=== PATIENT | male | born 1975 | race American Indian/Alaskan Native ===

== ENCOUNTER 2018-03-27 06:23 | Inpatient (IN) | payer BC ==
[~2018-03-27] VITALS: Ht 182.9 cm; Wt 109.0 kg
[2018-03-27] VITALS (8 sets, daily range): BP systolic 132–220; BP diastolic 75–117
[2018-03-27] MEDS ORDERED: normal saline 1000ML IV soln IV ONE (06:50)
[2018-03-27] MEDS ORDERED: haloperidol lactate 5mg/ml inj IM ONE (06:55)
[2018-03-27] MEDS ORDERED: metoclopramide 5 mg/ml inj IV ONE (07:20)
[2018-03-27] MEDS ORDERED: LORazepam 2 mg/ml vial IV ONE (07:20)
[2018-03-27 07:23] LABS: BASOPHILS # (AUTO) 0.1 X10'3 (0-0.2); BASOPHILS % (AUTO) 0.5 % (0-1); EOSINOPHILS # (AUTO) 0.2 X10'3 (0-0.9); HEMATOCRIT 38.6 % (42.0-52.0); LYMPHOCYTES # (AUTO) 1.2 X10'3 (1.1-4.8); LYMPHOCYTES % (AUTO) 6.9 % (21-51); MEAN CORPUSCULAR HEMOGLOBIN 29.8 PG (27.0-31.0); MEAN CORPUSCULAR HGB CONC 33.6 % (33.0-36.5); MEAN CORPUSCULAR VOLUME 88.8 FL (78-98); MEAN PLATELET VOLUME 10.3 FL (7.4-10.4); MONOCYTES # (AUTO) 1.1 X10'3 (0-0.9); MONOCYTES % (AUTO) 5.8 % (2-12); NEUTROPHILS # (AUTO) 15.6 X10'3 (1.8-7.7); NEUTROPHILS % (AUTO) 85.8 % (42-75); PLATELET COUNT 369 X10'3 (140-440); RED BLOOD COUNT 4.34 X10'6 (4.70-6.10); RED CELL DISTRIBUTION WIDTH 13.5 % (11.5-14.5); WHITE BLOOD COUNT 18.2 X10'3 (4.5-11.0)
[2018-03-27 07:37] LABS: INR 0.9 INR; PARTIAL THROMBOPLASTIN TIME 26 SECONDS (22-32); PROTHROMBIN TIME 9.8 SECONDS (9.0-12.0)
[2018-03-27 07:38] LABS: ALANINE AMINOTRANSFERASE 37 U/L (12-78); ALBUMIN 1.9 G/DL (3.4-5.0); ALBUMIN/GLOBULIN RATIO 0.4 (1.1-1.5); ALKALINE PHOSPHATASE 132 IU/L (46-116); ANION GAP 13 (8-16); ASPARTATE AMINO TRANSFERASE 63 U/L (10-37); BILIRUBIN,TOTAL 0.7 MG/DL (0.1-1.0); BLOOD UREA NITROGEN 47 MG/DL (7-18); BUN/CREATININE RATIO 10.2 (5.4-32.0); CALCIUM 8.3 MG/DL (8.5-10.1); CHLORIDE 100 MMOL/L (99-107); GLUCOSE 237 MG/DL (70-104); MAGNESIUM 2.4 MG/DL (1.5-2.4); POTASSIUM 3.3 MMOL/L (3.5-5.1); SODIUM 136 MMOL/L (135-145); TOTAL CARBON DIOXIDE 23.2 MMOL/L (24-32); TOTAL PROTEIN 6.2 G/DL (6.4-8.2); eGFR 14 ML/MIN
[2018-03-27] MEDS ORDERED: hydrALAZINE 20mg/ml inj. IV ONE (07:55)
[2018-03-27] MEDS ORDERED: levoFLOXACIN-Levaquin 750MG/D5 150 ML IV ONE (08:35)
[2018-03-27 08:57] LABS: CLARITY,URINE CLEAR (Clear); COLOR,URINE YELLOW (Yellow); GLUCOSE, URINE >=1000 mg/dl (Neg); KETONES,URINE 15 mg/dl (Neg); LEUKOCYTE ESTERASE ,URINE NEGATIVE (Neg); NITRITES, URINE NEGATIVE (Neg); OCCULT BLOOD,URINE MODERATE (Neg); PH,URINE 7.5 (4.8-8.0); PROTEIN,URINE >=300 mg/dl (Neg); UA COLLECTION TYPE VOIDED; UROBILINOGEN,URINE 0.2 E.U/dL (0.2-1.0)
[2018-03-27] MEDS ORDERED: POTA10CA44 PO (09:15)
[2018-03-27] MEDS ORDERED: LANTUS SQ (09:15)
[2018-03-27] MEDS ORDERED: ATOR40TA PO (09:15)
[2018-03-27] MEDS ORDERED: ATOR20TA66 PO (09:15)
[2018-03-27] MEDS ORDERED: FURO80TA87 PO (09:15)
[2018-03-27] MEDS ORDERED: LOSA50TA3 PO ×2 (09:15→09:20)
[2018-03-27 09:18] LABS: BACTERIA,URINE FEW /HPF (Neg); HYALINE CASTS 0-3 /LPF (NEGATIVE); SQUAMOUS EPITHELIAL CELL,UR FEW /LPF (FEW); WBC,URINE 0-4 /HPF (0-4)
[2018-03-27] MEDS ORDERED: GABA-530 PO (09:20)
[2018-03-27] MEDS ORDERED: METO-292 PO (09:20)
[2018-03-27] MEDS ORDERED: CARV-50 PO (09:20)
[2018-03-27] MEDS ORDERED: CHOL10002 PO (09:20)
[2018-03-27] MEDS ORDERED: DILT120C10 PO (09:20)
[2018-03-27] MEDS ORDERED: HYDR-4069 PO (09:20)
[2018-03-27] MEDS ORDERED: famotidine/PF 10 mg/ml inj IV ONE (09:55)
[2018-03-27] MEDS ORDERED: ondansetron/PF 4mg/2ml inj IV ONE (10:05)
[2018-03-27] MEDS ORDERED: magnesium Cl slow-release 64mg tablet PO PRN (10:10)
[2018-03-27] MEDS ORDERED: dextrose 50%-water 50ml dispensing syringe IV PRN ×2 (10:10)
[2018-03-27] MEDS ORDERED: magnesium hydroxide 30ml (MOM) UD suspension PO PRN (10:10)
[2018-03-27] MEDS ORDERED: dextrose ORAL solution 15 GM/59 ML bottle PO PRN ×2 (10:10)
[2018-03-27] MEDS ORDERED: metoclopramide 5 mg/ml inj IV PRN (10:10)
[2018-03-27] MEDS ORDERED: potassium Cl 20 mEq SR tablet PO PRN ×2 (10:10)
[2018-03-27] MEDS ORDERED: MESSAGE TO PHARMACY PO ONE (10:10)
[2018-03-27] MEDS ORDERED: mag hydrox/Alum hydrox/simeth 30ml oral suspension PO PRN (10:10)
[2018-03-27] MEDS ORDERED: glucagon, human recombinant 1mg kit SUBCUT PRN (10:10)
[2018-03-27] MEDS ORDERED: acetaminophen 325mg tablet PO PRN ×2 (10:10)
[2018-03-27] MEDS ORDERED: magnesium 1gm/100ml D5W IVPB 100 ML IV PRN (10:10)
[2018-03-27] MEDS ORDERED: magnesium 4gm in 100ml NS 100 ML IV PRN (10:10)
[2018-03-27] MEDS ORDERED: potassium Cl 40MEQ/NS 500ml 500 ML IV PRN ×2 (10:10)
[2018-03-27] MEDS ORDERED: morphine 4 MG/ML inj SYRINge IM ONE (10:20)
[2018-03-27] MEDS ORDERED: morphine 4 MG/ML inj SYRINge IV ONE (10:40)
[2018-03-27 10:56] LABS: HEMOGLOBIN A1C 6.8 % (4.5-6.2)
[2018-03-27] MEDS: HYDROmorphone 1 mg/ml syringe IV PRN ×3 (12:00→20:11)
[2018-03-27] MEDS: proCHLORperazine 10 MG/2 ml inj IV PRN ×2 (12:01→19:09)
[2018-03-27] MEDS: normal saline 1000ml 1,000 ML IV SCH ×3 (12:11→23:46)
[2018-03-27] MEDS ORDERED: potassium Cl 20 mEq SR tablet PO ONE (12:45)
[2018-03-27] MEDS ORDERED: furosemide 40mg tablet PO ONE (12:45)
[2018-03-27] MEDS ORDERED: hydrALAZINE 25 MG tablet PO ONE (12:45)
[2018-03-27] MEDS ORDERED: carVEDilol 12.5mg tablet PO ONE (12:45)
[2018-03-27] MEDS ORDERED: atorvastatin 20mg tablet PO ONE (12:45)
[2018-03-27] MEDS ORDERED: diltiazem CD 120mg capsule (once-daily) PO ONE (12:45)
[2018-03-27] MEDS ORDERED: hydrALAZINE 20mg/ml inj. IV PRN (13:30)
[2018-03-27] MEDS: ondansetron/PF 4mg/2ml inj IV PRN ×2 (16:13→23:29)
[2018-03-27] MEDS: gabapentin 100mg capsule PO SCH ×2 (16:19→23:29)
[2018-03-27] MEDS: carVEDilol 12.5mg tablet PO SCH (19:08)
[2018-03-27] MEDS: hydrALAZINE 25 MG tablet PO SCH (19:08)
[2018-03-27] MEDS: furosemide 40mg tablet PO SCH (19:09)
[2018-03-27] MEDS: potassium Cl 20 mEq SR tablet PO SCH (19:09)
[2018-03-27] MEDS: insulin Lispro (HumaLOG) vial - multi-dose SQ SCH (19:22)
[2018-03-27] MEDS: insulin glargine (Lantus) pen - multi-dose SQ SCH (21:11)
[2018-03-28] MEDS: proCHLORperazine 10 MG/2 ml inj IV PRN (02:49)
[2018-03-28] MEDS: HYDROmorphone 1 mg/ml syringe IV PRN ×4 (02:50→20:59)
[2018-03-28] MEDS: normal saline 1000ml 1,000 ML IV SCH (05:27)
[2018-03-28] MEDS: ondansetron/PF 4mg/2ml inj IV PRN (05:27)
[2018-03-28 05:52] LABS: BASOPHILS % (AUTO) 0.2 % (0-1); EOSINOPHILS # (AUTO) 0.3 X10'3 (0-0.9); EOSINOPHILS % (AUTO) 1.8 % (0-6); HEMATOCRIT 33.7 % (42.0-52.0); HEMOGLOBIN 11.2 g/dl (14.0-17.9); LYMPHOCYTES # (AUTO) 1.4 X10'3 (1.1-4.8); LYMPHOCYTES % (AUTO) 9.6 % (21-51); MEAN CORPUSCULAR HEMOGLOBIN 29.8 PG (27.0-31.0); MEAN CORPUSCULAR HGB CONC 33.4 % (33.0-36.5); MEAN CORPUSCULAR VOLUME 89.3 FL (78-98); MEAN PLATELET VOLUME 10.7 FL (7.4-10.4); MONOCYTES # (AUTO) 1.5 X10'3 (0-0.9); MONOCYTES % (AUTO) 10.6 % (2-12); NEUTROPHILS % (AUTO) 77.8 % (42-75); PLATELET COUNT 327 X10'3 (140-440); RED BLOOD COUNT 3.77 X10'6 (4.70-6.10); RED CELL DISTRIBUTION WIDTH 13.4 % (11.5-14.5); WHITE BLOOD COUNT 14.2 X10'3 (4.5-11.0)
[2018-03-28 05:53] LABS: ALBUMIN 1.5 G/DL (3.4-5.0); ANION GAP 10 (8-16); BLOOD UREA NITROGEN 46 MG/DL (7-18); BUN/CREATININE RATIO 10.7 (5.4-32.0); CALCIUM 7.4 MG/DL (8.5-10.1); CHLORIDE 106 MMOL/L (99-107); GLUCOSE 163 MG/DL (70-104); POTASSIUM 3.5 MMOL/L (3.5-5.1); SODIUM 140 MMOL/L (135-145); TOTAL CARBON DIOXIDE 24.4 MMOL/L (24-32); eGFR 15 ML/MIN
[2018-03-28] MEDS: K and/or MAG REPLACEMENT MC SCH (08:00)
[2018-03-28 08:07] VITALS: BP 159/89
[2018-03-28] MEDS: insulin Lispro (HumaLOG) vial - multi-dose SQ SCH ×3 (09:05→18:47)
[2018-03-28] MEDS: carVEDilol 12.5mg tablet PO SCH ×2 (09:07→20:58)
[2018-03-28] MEDS: atorvastatin 20mg tablet PO SCH (09:08)
[2018-03-28] MEDS: hydrALAZINE 25 MG tablet PO SCH ×3 (09:08→21:01)
[2018-03-28] MEDS: furosemide 40mg tablet PO SCH ×2 (09:09→20:58)
[2018-03-28] MEDS: losartan 50mg tablet PO SCH (09:09)
[2018-03-28] MEDS: diltiazem CD 120mg capsule (once-daily) PO SCH (09:10)
[2018-03-28] MEDS: gabapentin 100mg capsule PO SCH ×3 (09:10→23:57)
[2018-03-28] MEDS: potassium Cl 20 mEq SR tablet PO SCH ×2 (09:10→20:58)
[2018-03-28 11:57] VITALS: BP 164/90
[2018-03-28 13:46] VITALS: BP 163/87
[2018-03-28 16:09] VITALS: BP 196/111
[2018-03-28] MEDS: potassium cl 20mEq in 1/2 NS 1,000 ML IV SCH (16:14)
[2018-03-28] MEDS: CefTRIAXone/D5W-Rocephin 1gm 50 ML IV SCH (16:15)
[2018-03-28] MEDS: pantoprazole 40 MG vial IV SCH (16:28)
[2018-03-28] MEDS: erythromycin ethylsuccinate 200mg/5ml 200ml bottle PO SCH (17:58)
[2018-03-28 20:00] VITALS: BP 151/85
[2018-03-28] MEDS: insulin glargine (Lantus) pen - multi-dose SQ SCH (20:55)
[2018-03-28] MEDS: heparin, porcine 5000 units/ml vial SQ SCH (20:58)
[2018-03-29] VITALS: BP 131/67
[2018-03-29] MEDS: HYDROmorphone 1 mg/ml syringe IV PRN ×2 (00:49→08:54)
[2018-03-29] MEDS: potassium cl 20mEq in 1/2 NS 1,000 ML IV SCH ×2 (00:55→11:30)
[2018-03-29] MEDS: proCHLORperazine 10 MG/2 ml inj IV PRN (04:09)
[2018-03-29 05:10] LABS: HEMATOCRIT 32.9 % (42.0-52.0); HEMOGLOBIN 11.2 g/dl (14.0-17.9); WHITE BLOOD COUNT 11.6 X10'3 (4.5-11.0)
[2018-03-29 05:11] LABS: BASOPHILS % (AUTO) 0.2 % (0-1); EOSINOPHILS # (AUTO) 0.1 X10'3 (0-0.9); EOSINOPHILS % (AUTO) 0.7 % (0-6); LYMPHOCYTES # (AUTO) 1.6 X10'3 (1.1-4.8); MEAN CORPUSCULAR HEMOGLOBIN 30.3 PG (27.0-31.0); MEAN CORPUSCULAR VOLUME 88.9 FL (78-98); MEAN PLATELET VOLUME 10.4 FL (7.4-10.4); MONOCYTES # (AUTO) 1.1 X10'3 (0-0.9); MONOCYTES % (AUTO) 9.1 % (2-12); NEUTROPHILS # (AUTO) 8.8 X10'3 (1.8-7.7); PLATELET COUNT 303 X10'3 (140-440); RED CELL DISTRIBUTION WIDTH 13.4 % (11.5-14.5)
[2018-03-29 05:32] LABS: ALBUMIN 1.5 G/DL (3.4-5.0); ANION GAP 11 (8-16); BLOOD UREA NITROGEN 47 MG/DL (7-18); BUN/CREATININE RATIO 10.2 (5.4-32.0); CALCIUM 7.9 MG/DL (8.5-10.1); CHLORIDE 104 MMOL/L (99-107); CREATININE 4.59 MG/DL (0.60-1.10); GLUCOSE 125 MG/DL (70-104); POTASSIUM 3.6 MMOL/L (3.5-5.1); SODIUM 139 MMOL/L (135-145); eGFR 14 ML/MIN
[2018-03-29 07:00] VITALS: BP 172/92
[2018-03-29] MEDS: carVEDilol 12.5mg tablet PO SCH (07:32)
[2018-03-29] MEDS: atorvastatin 20mg tablet PO SCH (07:33)
[2018-03-29] MEDS: pantoprazole 40 MG vial IV SCH (07:33)
[2018-03-29] MEDS: hydrALAZINE 25 MG tablet PO SCH (07:33)
[2018-03-29] MEDS: furosemide 40mg tablet PO SCH (07:33)
[2018-03-29] MEDS: potassium Cl 20 mEq SR tablet PO SCH (07:33)
[2018-03-29] MEDS: losartan 50mg tablet PO SCH (07:33)
[2018-03-29] MEDS: diltiazem CD 120mg capsule (once-daily) PO SCH (07:33)
[2018-03-29] MEDS: heparin, porcine 5000 units/ml vial SQ SCH (07:35)
[2018-03-29] MEDS: CefTRIAXone/D5W-Rocephin 1gm 50 ML IV SCH (07:35)
[2018-03-29] MEDS: erythromycin ethylsuccinate 200mg/5ml 200ml bottle PO SCH (07:51)
[2018-03-29] MEDS: gabapentin 100mg capsule PO SCH (08:00)
[2018-03-29] MEDS: K and/or MAG REPLACEMENT MC SCH (08:00)
[2018-03-29] MEDS: insulin Lispro (HumaLOG) vial - multi-dose SQ SCH (08:57)
[2018-03-29 09:33] VITALS: BP 120/64
[2018-03-29 10:58] VITALS: BP 128/76
[2018-03-29] MEDS ORDERED: AMOX-580 PO (12:59)
[2018-03-29] MEDS ORDERED: [UNRECOGNIZED DRUG - CODE] PO ×2 (12:59→13:13)
[2018-03-29] MEDS ORDERED: PANT-47 PO (12:59)
[2018-03-29] MEDS ORDERED: INSU100V11 SQ (13:00)
== END 2018-03-29 14:12 | disposition home or self-care (01) | DRG 73 ==
LOC: ER 06:25 → ED HOLD 10:09 → SUR 3N 12:03
PROVIDERS: ADMIT Family Medicine; ATTEND Internal Medicine
DX: E10.43 Type 1 diabetes mellitus with diabetic autonomic (poly)neuropathy (principal); J18.1 Lobar pneumonia, unspecified organism; N17.9 Acute kidney failure, unspecified; N18.4 Chronic kidney disease, stage 4 (severe); E10.21 Type 1 diabetes mellitus with diabetic nephropathy; E10.22 Type 1 diabetes mellitus with diabetic chronic kidney disease; E10.319 Type 1 diabetes mellitus with unspecified diabetic retinopathy without macular edema; E10.65 Type 1 diabetes mellitus with hyperglycemia; E78.5 Hyperlipidemia, unspecified; E86.0 Dehydration; E87.6 Hypokalemia; F17.210 Nicotine dependence, cigarettes, uncomplicated; I12.9 Hypertensive chronic kidney disease with stage 1 through stage 4 chronic kidney disease, or unspecified chronic kidney disease; I16.0 Hypertensive urgency; K31.84 Gastroparesis; Z79.4 Long term (current) use of insulin; Z88.2 Allergy status to sulfonamides; Z90.49 Acquired absence of other specified parts of digestive tract; Z88.1 Allergy status to other antibiotic agents; Z79.899 Other long term (current) drug therapy
CPT/HCPCS: 36415; 71045; 74176; 80048; 80053; 81001; 82570; 82948; 83036; 83605; 83735; 83935; 84145; 84300; 85025; 85610; 85730; 87040; 87070; 93005; 96361; 96365; 96375; 99285; C9113; J0360; J0696; J0780; J1170; J1644; J1815; J1956; J2060; J2270; J2405; J2765; J3480; J3490; J7030

== ENCOUNTER 2018-07-18 03:17 | Inpatient (IN) | payer BC | END 2018-07-19 17:37 | disposition home or self-care (01) | LOC: ER 03:17 → ED HOLD 05:57 → PCU 3S 08:00 ==

== ENCOUNTER 2018-08-27 03:48 | Emergency (ER) | payer BC ==
[~2018-08-27] VITALS: Ht 172.7 cm; Wt 100.8 kg
[~2018-08-27 03:48] MED LIST: ATOR20TA66 PO; CARCD120C PO; CARV-50 PO; GABA-530 PO; HYDR-4069 PO; INSU100V11 SQ; LANTUS SQ; LOSA50TA3 PO; METO-292 PO; ONDA4TAB6 PO
[2018-08-27] MEDS ORDERED: famotidine/PF 10 mg/ml inj IV ONE (04:30)
[2018-08-27] MEDS ORDERED: pantoprazole 40 MG vial IV ONE (04:30)
[2018-08-27] MEDS ORDERED: normal saline 1000ML IV soln IVB ONE (04:30)
[2018-08-27] MEDS ORDERED: metoclopramide 5 mg/ml inj IV ONE (04:30)
[2018-08-27 04:41] LABS: ABG BASE EXCESS -2.2 mmol/L (-2.0-3.0); ABG OXYGEN SATURATION 97.8 % (95-98); ABG PCO2 (T) 11.2 mmHg (35.0-48.0); ABG PH (T) 7.713 (7.350-7.450); ABG PO2 (T) 119.7 mmHg (83-108); FCOHb 0.1 % (0.5-1.5); FMetHb 0.3 % (0.3-1.12); FO2Hb 97.4 % (94-100); PATIENT TEMPERATURE 37.1; TOTAL HEMOGLOBIN 12.7 G/dl (14.0-18.0)
[2018-08-27] MEDS ORDERED: LORazepam 2 mg/ml vial IV ONE (04:45)
[2018-08-27 04:50] LABS: BASOPHILS # (AUTO) 0.1 X10'3 (0-0.2); BASOPHILS % (AUTO) 0.2 % (0-1); EOSINOPHILS % (AUTO) 0 % (0-6); HEMATOCRIT 24.2 % (42.0-52.0); LYMPHOCYTES # (AUTO) 1.5 X10'3 (1.1-4.8); LYMPHOCYTES % (AUTO) 5.7 % (21-51); MEAN CORPUSCULAR HEMOGLOBIN 28.9 PG (27.0-31.0); MEAN CORPUSCULAR HGB CONC 33.1 g/dL (33.0-36.5); MEAN CORPUSCULAR VOLUME 87.1 FL (78-98); MEAN PLATELET VOLUME 10.8 FL (7.4-10.4); MONOCYTES # (AUTO) 0.6 X10'3 (0-0.9); MONOCYTES % (AUTO) 2.4 % (2-12); NEUTROPHILS # (AUTO) 23.5 X10'3 (1.8-7.7); NEUTROPHILS % (AUTO) 91.7 % (42-75); PLATELET COUNT 515 X10'3 (140-440); RED BLOOD COUNT 2.78 X10'6 (4.70-6.10); RED CELL DISTRIBUTION WIDTH 13.5 % (11.5-14.5)
[2018-08-27 04:54] LABS: WHITE BLOOD COUNT 25.6 X10'3 (4.5-11.0)
[2018-08-27 04:59] LABS: ALANINE AMINOTRANSFERASE 29 U/L (12-78); ALBUMIN/GLOBULIN RATIO 0.5 (1.1-1.5); ALKALINE PHOSPHATASE 152 IU/L (46-116); ANION GAP 19 (8-16); ASPARTATE AMINO TRANSFERASE 32 U/L (10-37); BILIRUBIN,TOTAL 0.9 MG/DL (0.1-1.0); BLOOD UREA NITROGEN 52 MG/DL (7-18); BUN/CREATININE RATIO 8.5 (5.4-32.0); CALCIUM 8.5 MG/DL (8.5-10.1); CHLORIDE 102 MMOL/L (99-107); CREATININE 6.15 MG/DL (0.60-1.10); GLUCOSE 244 MG/DL (70-104); LIPASE 244 U/L (73-393); POTASSIUM 3.2 MMOL/L (3.5-5.1); SODIUM 138 MMOL/L (135-145); TOTAL CARBON DIOXIDE 17.4 MMOL/L (24-32); TOTAL PROTEIN 6.2 G/DL (6.4-8.2); eGFR 10 ML/MIN
[2018-08-27 05:22] LABS: TOTAL CELLS COUNTED 100
[2018-08-27 05:23] LABS: LARGE PLATELETS FEW; PLATELET ESTIMATE INCREASED
--- NOTE | 2018-08-27 05:23 | NUR ---
pt respiratory rate normalized to 18. MD aware, stated pt did not need non-rebreather as long as respirations stay within normal limits.
[2018-08-27] MEDS ORDERED: insulin regular, DKA only 100 UNIT in normal saline 100ml IV soln 99 ML IV SCH ×2 (05:28)
[2018-08-27] MEDS ORDERED: insulin regular, human vial - multi-dose IV PRN (05:30)
[2018-08-27 06:16] VITALS: BP 156/119
--- NOTE | 2018-08-27 06:22 | NUR ---
turn non-rebreather to 15L, pt found on 2 L non-rebreather
[2018-08-27 06:37] LABS: MAGNESIUM 1.7 MG/DL (1.5-2.4); PHOSPHORUS 3.4 MG/DL (2.3-4.5)
--- NOTE | 2018-08-27 06:51 | NUR ---
INSULIN DRIP ON HOLD PER
[2018-08-28] MEDS ORDERED: ONDA4TAB6 PO (03:39)
[2018-08-28] MEDS ORDERED: PHE25R PR (03:39)
== END 2018-08-27 07:03 | disposition home or self-care (01) ==
LOC: ER 03:48
DX: E11.10 Type 2 diabetes mellitus with ketoacidosis without coma (principal); E11.22 Type 2 diabetes mellitus with diabetic chronic kidney disease; I12.0 Hypertensive chronic kidney disease with stage 5 chronic kidney disease or end stage renal disease; N18.6 End stage renal disease; K29.00 Acute gastritis without bleeding; E87.4 Mixed disorder of acid-base balance; E87.2 Acidosis; D72.829 Elevated white blood cell count, unspecified; Z88.2 Allergy status to sulfonamides; Z79.4 Long term (current) use of insulin; Z79.899 Other long term (current) drug therapy
CPT/HCPCS: 36415; 36600; 80053; 82803; 83605; 83690; 83735; 84100; 84145; 85018; 85025; 87040; 96374; 96375; 99291; C9113; J1815; J2060; J2765; J3490; J7030

== ENCOUNTER 2018-08-27 23:42 | Emergency (ER) | payer BC ==
[~2018-08-27] VITALS: Ht 182.9 cm; Wt 125.0 kg
[2018-08-28] MEDS ORDERED: metoclopramide 5 mg/ml inj IV ONE (00:05)
[2018-08-28] MEDS ORDERED: normal saline 1000ML IV soln IVB ONE (00:05)
[2018-08-28 00:51] LABS: ABG BASE EXCESS -6.4 mmol/L (-2.0-3.0); ABG HCO3 14.9 mmol/L (22.0-26.0); ABG OXYGEN SATURATION 97.1 % (95-98); ABG PCO2 (T) 19.7 mmHg (35.0-48.0); ABG PH (T) 7.496 (7.350-7.450); ABG PO2 (T) 100.6 mmHg (83-108); ALLEN'S TEST Positive; FCOHb 0.3 % (0.5-1.5); FMetHb 0.3 % (0.3-1.12); FO2Hb 96.5 % (94-100); PATIENT TEMPERATURE 36.7; TOTAL HEMOGLOBIN 11.5 G/dl (14.0-18.0)
[2018-08-28 01:24] LABS: BASOPHILS # (AUTO) 0.1 X10'3 (0-0.2); BASOPHILS % (AUTO) 0.4 % (0-1); EOSINOPHILS % (AUTO) 0 % (0-6); HEMATOCRIT 34.1 % (42.0-52.0); HEMOGLOBIN 11.2 g/dl (14.0-17.9); LYMPHOCYTES # (AUTO) 1.2 X10'3 (1.1-4.8); LYMPHOCYTES % (AUTO) 8.8 % (21-51); MONOCYTES # (AUTO) 0.9 X10'3 (0-0.9); MONOCYTES % (AUTO) 6.6 % (2-12); NEUTROPHILS # (AUTO) 11.7 X10'3 (1.8-7.7); NEUTROPHILS % (AUTO) 84.2 % (42-75); PLATELET COUNT 328 X10'3 (140-440); RED BLOOD COUNT 3.87 X10'6 (4.70-6.10); RED CELL DISTRIBUTION WIDTH 13.2 % (11.5-14.5); WHITE BLOOD COUNT 13.9 X10'3 (4.5-11.0)
[2018-08-28 01:44] LABS: ALANINE AMINOTRANSFERASE 27 U/L (12-78); ALBUMIN 1.7 G/DL (3.4-5.0); ALBUMIN/GLOBULIN RATIO 0.5 (1.1-1.5); ALKALINE PHOSPHATASE 126 IU/L (46-116); ANION GAP 17 (8-16); ASPARTATE AMINO TRANSFERASE 40 U/L (10-37); BILIRUBIN,TOTAL 1.1 MG/DL (0.1-1.0); BLOOD UREA NITROGEN 49 MG/DL (7-18); BUN/CREATININE RATIO 8.5 (5.4-32.0); CALCIUM 7.9 MG/DL (8.5-10.1); CHLORIDE 104 MMOL/L (99-107); CREATININE 5.77 MG/DL (0.60-1.10); GLUCOSE 173 MG/DL (70-104); LIPASE 139 U/L (73-393); SODIUM 139 MMOL/L (135-145); TOTAL CARBON DIOXIDE 18.5 MMOL/L (24-32); TOTAL PROTEIN 5.4 G/DL (6.4-8.2); eGFR 11 ML/MIN
[2018-08-28 01:46] LABS: POTASSIUM 2.8 MMOL/L (3.5-5.1)
--- NOTE | 2018-08-28 01:50 | NUR ---
Discussed pt's c/o pain with Dr Khalil; new order received for zofran and toradol. Also K-rider order d/t K 2.8
[2018-08-28] MEDS ORDERED: ondansetron/PF 4mg/2ml inj IV ONE (01:55)
[2018-08-28] MEDS ORDERED: ketorolac trometh inj. 60 MG/2 ML VIAL IM ONE (01:55)
[2018-08-28] MEDS ORDERED: potassium Cl 10 mEq/100mL bag IV ONE (01:55)
[2018-08-28] MEDS ORDERED: potassium 10mEq/100ml NS w/LIDOcaine (10mg/bag) IV ONE (02:00)
[2018-08-28] MEDS ORDERED: magnesium 2GM in 50ml NS 50 ML IV SCH (02:10)
[2018-08-28] MEDS ORDERED: potassium Cl 20 mEq SR tablet PO ONE (02:10)
[2018-08-28 03:02] VITALS: BP 184/109
--- NOTE | 2018-08-28 03:34 | NUR ---
Dr Khalil ordered Magnesium 2gm total; ordered option was 2gm per bag w/ one bag being administered and second bag not needed as total desired dose given.
[2018-08-28] MEDS ORDERED: PHE25R PR (03:39)
[2018-08-28] MEDS ORDERED: ONDA4TAB6 PO (03:39)
== END 2018-08-28 03:58 | disposition home or self-care (01) ==
LOC: ER 23:43
DX: E10.43 Type 1 diabetes mellitus with diabetic autonomic (poly)neuropathy (principal); K31.84 Gastroparesis; E10.65 Type 1 diabetes mellitus with hyperglycemia; I12.0 Hypertensive chronic kidney disease with stage 5 chronic kidney disease or end stage renal disease; E10.22 Type 1 diabetes mellitus with diabetic chronic kidney disease; N18.6 End stage renal disease; Z88.2 Allergy status to sulfonamides
CPT/HCPCS: 36415; 36600; 80053; 82803; 83605; 83690; 85018; 85025; 96361; 96365; 96372; 96375; 99283; J1885; J2405; J2765; J3475; J3480; J7030

== ENCOUNTER 2018-10-07 21:34 | Emergency (ER) | payer BC ==
[~2018-10-07] VITALS: Ht 185.4 cm; Wt 122.7 kg
[~2018-10-07 21:34] MED LIST changes: +PHE25R PR
[2018-10-07] MEDS ORDERED: morphine 4 MG/ML inj SYRINge IV PRN (21:40)
[2018-10-07] MEDS ORDERED: normal saline 1000ML IV soln IVB ONE (21:40)
[2018-10-07] MEDS ORDERED: metoclopramide 5 mg/ml inj IV ONE (21:40)
[2018-10-07 22:09] LABS: ALANINE AMINOTRANSFERASE 24 U/L (12-78); ALBUMIN 2.2 G/DL (3.4-5.0); ALBUMIN/GLOBULIN RATIO 0.5 (1.1-1.5); ALKALINE PHOSPHATASE 129 IU/L (46-116); ANION GAP 20 (8-16); ASPARTATE AMINO TRANSFERASE 27 U/L (10-37); BASOPHILS % (AUTO) 0.3 % (0-1); BILIRUBIN,TOTAL 0.8 MG/DL (0.1-1.0); BLOOD UREA NITROGEN 78 MG/DL (7-18); BUN/CREATININE RATIO 8.7 (5.4-32.0); CALCIUM 8.2 MG/DL (8.5-10.1); CHLORIDE 97 MMOL/L (99-107); CREATININE 8.96 MG/DL (0.60-1.10); EOSINOPHILS % (AUTO) 0 % (0-6); GLUCOSE 222 MG/DL (70-104); HEMATOCRIT 35.2 % (42.0-52.0); HEMOGLOBIN 11.5 g/dl (14.0-17.9); LIPASE 123 U/L (73-393); LYMPHOCYTES # (AUTO) 1.4 X10'3 (1.1-4.8); LYMPHOCYTES % (AUTO) 13.1 % (21-51); MAGNESIUM 1.8 MG/DL (1.5-2.4); MEAN CORPUSCULAR HEMOGLOBIN 28.9 PG (27.0-31.0); MEAN CORPUSCULAR HGB CONC 32.7 g/dL (33.0-36.5); MEAN CORPUSCULAR VOLUME 88.3 FL (78-98); MEAN PLATELET VOLUME 10.4 FL (7.4-10.4); MONOCYTES % (AUTO) 9.2 % (2-12); NEUTROPHILS # (AUTO) 8.4 X10'3 (1.8-7.7); NEUTROPHILS % (AUTO) 77.4 % (42-75); PLATELET COUNT 369 X10'3 (140-440); RED BLOOD COUNT 3.99 X10'6 (4.70-6.10); SODIUM 138 MMOL/L (135-145); TOTAL CARBON DIOXIDE 21.2 MMOL/L (24-32); TOTAL PROTEIN 6.6 G/DL (6.4-8.2); WHITE BLOOD COUNT 10.8 X10'3 (4.5-11.0); eGFR 7 ML/MIN
[2018-10-07] MEDS ORDERED: ondansetron/PF 4mg/2ml inj IV ONE (22:45)
[2018-10-07 23:01] LABS: ABG BASE EXCESS -2.7 mmol/L (-2.0-3.0); ABG HCO3 19.3 mmol/L (22.0-26.0); ABG OXYGEN SATURATION 93.4 % (95-98); ABG PCO2 (T) 25.2 mmHg (35.0-48.0); ABG PH (T) 7.501 (7.350-7.450); ABG PO2 (T) 68.2 mmHg (83-108); FCOHb 0.2 % (0.5-1.5); FMetHb 0.3 % (0.3-1.12); FO2Hb 92.9 % (94-100); PATIENT TEMPERATURE 36.6; TOTAL HEMOGLOBIN 11.2 G/dl (14.0-18.0)
[2018-10-07] MEDS ORDERED: PROM25SU46 RC (23:10)
[2018-10-07 23:37] VITALS: BP 215/137
[2018-10-07 23:39] LABS: CLARITY,URINE CLEAR (Clear); COLOR,URINE YELLOW (Yellow); GLUCOSE, URINE 500 mg/dl (Neg); KETONES,URINE 40 mg/dl (Neg); LEUKOCYTE ESTERASE ,URINE NEGATIVE (Neg); NITRITES, URINE NEGATIVE (Neg); OCCULT BLOOD,URINE MODERATE (Neg); PH,URINE 7.5 (4.8-8.0); PROTEIN,URINE >=300 mg/dl (Neg); UROBILINOGEN,URINE 0.2 E.U/dL (0.2-1.0)
--- NOTE | 2018-10-07 23:40 | NUR ---
MD AWARE OF PT'S POTASSIUM LEVEL AND BLOOD PRESSURE AND AFTER TALKING TO NEPHROLOGY CLEARED PT TO BE DC'D FROM ED.
[2018-10-07 23:45] LABS: BACTERIA,URINE NONE SEEN /HPF (Neg); SQUAMOUS EPITHELIAL CELL,UR FEW /LPF (FEW); UA COLLECTION TYPE NON-SPECIFIED; WBC,URINE NONE SEEN /HPF (0-4)
== END 2018-10-07 23:39 | disposition home or self-care (01) ==
LOC: ER 21:34
DX: E11.43 Type 2 diabetes mellitus with diabetic autonomic (poly)neuropathy (principal); K31.84 Gastroparesis; I12.9 Hypertensive chronic kidney disease with stage 1 through stage 4 chronic kidney disease, or unspecified chronic kidney disease; E11.22 Type 2 diabetes mellitus with diabetic chronic kidney disease; N18.9 Chronic kidney disease, unspecified; Z88.2 Allergy status to sulfonamides; Z79.4 Long term (current) use of insulin; Z79.899 Other long term (current) drug therapy
CPT/HCPCS: 36415; 36600; 80053; 81001; 82803; 83690; 83735; 84100; 85018; 85025; 96361; 96374; 96375; 99284; J2270; J2405; J2765; J7030

== ENCOUNTER 2018-10-09 20:32 | Inpatient (IN) | payer BC ==
[~2018-10-09] VITALS: Ht 182.9 cm; Wt 114.3 kg
[~2018-10-09 20:32] MED LIST changes: +PROM25SU46 RC
[2018-10-09 21:40] LABS: BASOPHILS % (AUTO) 0.2 % (0-1); EOSINOPHILS % (AUTO) 0.1 % (0-6); HEMATOCRIT 34.1 % (42.0-52.0); HEMOGLOBIN 11.2 g/dl (14.0-17.9); LYMPHOCYTES % (AUTO) 14.1 % (21-51); MEAN CORPUSCULAR HEMOGLOBIN 28.8 PG (27.0-31.0); MEAN CORPUSCULAR VOLUME 87.3 FL (78-98); MEAN PLATELET VOLUME 10.4 FL (7.4-10.4); MONOCYTES # (AUTO) 0.9 X10'3 (0-0.9); MONOCYTES % (AUTO) 6.7 % (2-12); NEUTROPHILS # (AUTO) 11.1 X10'3 (1.8-7.7); NEUTROPHILS % (AUTO) 78.9 % (42-75); PLATELET COUNT 438 X10'3 (140-440); RED BLOOD COUNT 3.91 X10'6 (4.70-6.10); RED CELL DISTRIBUTION WIDTH 13.1 % (11.5-14.5); WHITE BLOOD COUNT 14.1 X10'3 (4.5-11.0)
[2018-10-09 21:51] LABS: ALANINE AMINOTRANSFERASE 20 U/L (12-78); ALBUMIN 2.2 G/DL (3.4-5.0); ALBUMIN/GLOBULIN RATIO 0.5 (1.1-1.5); ALKALINE PHOSPHATASE 138 IU/L (46-116); AMYLASE 54 U/L (25-115); ANION GAP 22 (8-16); ASPARTATE AMINO TRANSFERASE 22 U/L (10-37); BLOOD UREA NITROGEN 79 MG/DL (7-18); BUN/CREATININE RATIO 8.9 (5.4-32.0); CALCIUM 8.5 MG/DL (8.5-10.1); CHLORIDE 97 MMOL/L (99-107); CREATININE 8.89 MG/DL (0.60-1.10); GLUCOSE 177 MG/DL (70-104); LIPASE 155 U/L (73-393); SODIUM 141 MMOL/L (135-145); TOTAL CARBON DIOXIDE 22.2 MMOL/L (24-32); eGFR 7 ML/MIN
[2018-10-09 21:57] LABS: INR 1.1 INR; POTASSIUM 2.7 MMOL/L (3.5-5.1); PROTHROMBIN TIME 10.7 SECONDS (9.0-12.0)
[2018-10-10] MEDS ORDERED: morphine 4 MG/ML inj SYRINge IV ONE (00:45)
[2018-10-10] MEDS ORDERED: ondansetron/PF 4mg/2ml inj IV ONE (00:45)
[2018-10-10] MEDS ORDERED: glucagon, human recombinant 1mg kit SUBCUT PRN (02:00)
[2018-10-10] MEDS ORDERED: proMETHazine 25mg rectal suppository RC PRN (02:00)
[2018-10-10] MEDS ORDERED: MESSAGE TO PHARMACY PO ONE (02:00)
[2018-10-10] MEDS ORDERED: insulin Lispro (HumaLOG) vial - multi-dose SQ SCH ×2 (02:00→21:00)
[2018-10-10] MEDS ORDERED: diphenhydrAMINE 50 mg/ml inj IV SCH ×2 (02:00→08:00)
[2018-10-10] MEDS ORDERED: dextrose ORAL solution 15 GM/59 ML bottle PO PRN ×2 (02:00)
[2018-10-10] MEDS ORDERED: metoclopramide 5 mg/ml inj IV SCH (02:00)
[2018-10-10] MEDS ORDERED: acetaminophen 650mg rectal suppository RC PRN (02:00)
[2018-10-10] MEDS ORDERED: dextrose 50%-water 50ml dispensing syringe IV PRN ×2 (02:00)
[2018-10-10] MEDS ORDERED: acetaminophen 325mg tablet PO PRN ×2 (02:00)
[2018-10-10] MEDS ORDERED: potass W/LIDOcaine 10mEq/100ml 100 ML IV ONE ×2 (02:15→03:55)
[2018-10-10] MEDS: normal saline 1000ml 1,000 ML IV SCH ×2 (02:55→15:18)
[2018-10-10] MEDS ORDERED: hydrALAZINE 20mg/ml inj. IV PRN (03:05)
[2018-10-10 03:36] LABS: BASOPHILS % (AUTO) 0.2 % (0-1); EOSINOPHILS % (AUTO) 0 % (0-6); HEMOGLOBIN 11.1 g/dl (14.0-17.9); LYMPHOCYTES # (AUTO) 1.8 X10'3 (1.1-4.8); LYMPHOCYTES % (AUTO) 10.9 % (21-51); MEAN CORPUSCULAR HEMOGLOBIN 29.1 PG (27.0-31.0); MEAN CORPUSCULAR HGB CONC 32.7 g/dL (33.0-36.5); MEAN CORPUSCULAR VOLUME 88.9 FL (78-98); MEAN PLATELET VOLUME 10.5 FL (7.4-10.4); MONOCYTES # (AUTO) 1.1 X10'3 (0-0.9); MONOCYTES % (AUTO) 6.6 % (2-12); NEUTROPHILS # (AUTO) 13.6 X10'3 (1.8-7.7); NEUTROPHILS % (AUTO) 82.3 % (42-75); PLATELET COUNT 393 X10'3 (140-440); RED BLOOD COUNT 3.82 X10'6 (4.70-6.10); WHITE BLOOD COUNT 16.6 X10'3 (4.5-11.0)
[2018-10-10 03:46] LABS: ANION GAP 21 (8-16); BLOOD UREA NITROGEN 83 MG/DL (7-18); CHLORIDE 97 MMOL/L (99-107); CREATININE 9.23 MG/DL (0.60-1.10); GLUCOSE 224 MG/DL (70-104); PHOSPHORUS 8.7 MG/DL (2.3-4.5); SODIUM 140 MMOL/L (135-145); TOTAL CARBON DIOXIDE 22.5 MMOL/L (24-32); eGFR 6 ML/MIN
[2018-10-10 03:49] LABS: POTASSIUM 2.4 MMOL/L (3.5-5.1)
--- NOTE | 2018-10-10 03:53 | NUR ---
CRITICAL LAB: K 2.4July notified. New orders to administer a second 10 mEq K IV. Orders noted that patient is not to have morphine for pain. I C/O of abdominal pain, then give pt prn ativan, and ordered anti emetic. If this does not resolve abd pain, then call screen printing loader unloader.
[2018-10-10 03:57] LABS: HEMOGLOBIN A1C 7.7 % (4.5-6.2)
[2018-10-10 07:15] LABS: CLARITY,URINE CLEAR (Clear); COLOR,URINE YELLOW (Yellow); GLUCOSE, URINE 500 mg/dl (Neg); KETONES,URINE 40 mg/dl (Neg); LEUKOCYTE ESTERASE ,URINE NEGATIVE (Neg); NITRITES, URINE NEGATIVE (Neg); OCCULT BLOOD,URINE MODERATE (Neg); PH,URINE 6.5 (4.8-8.0); PROTEIN,URINE >=300 mg/dl (Neg); UROBILINOGEN,URINE 0.2 E.U/dL (0.2-1.0)
[2018-10-10 07:21] LABS: UA COLLECTION TYPE URINAL
[2018-10-10 07:23] LABS: BACTERIA,URINE FEW /HPF (Neg); WBC,URINE 0-4 /HPF (0-4)
--- NOTE | 2018-10-10 07:23 | NUR ---
received pt report from Ever DEVINE.
[2018-10-10 07:24] LABS: MUCUS STRANDS NONE SEEN /LPF (Neg); SQUAMOUS EPITHELIAL CELL,UR NONE SEEN /LPF (FEW)
[2018-10-10 07:40] VITALS: BP 162/94
--- NOTE | 2018-10-10 07:40 | NUR ---
pt arrived to floor via hospital bed. pt oriented to room and call light. VSS.
[2018-10-10] MEDS: docusate sod 100mg capsule PO SCH ×2 (08:00→20:00)
[2018-10-10] MEDS ORDERED: heparin, porcine 5000 units/ml vial SQ SCH (08:00)
[2018-10-10] MEDS: famotidine/PF 10 mg/ml inj IV SCH (08:07)
[2018-10-10] MEDS: diphenhydrAMINE 50 mg/ml inj IV SCH ×2 (08:07→16:18)
[2018-10-10] MEDS: metoclopramide 5 mg/ml inj IV SCH ×2 (08:10→15:23)
[2018-10-10 09:26] LABS: ALBUMIN 2.1 G/DL (3.4-5.0); ANION GAP 14 (8-16); BLOOD UREA NITROGEN 80 MG/DL (7-18); BUN/CREATININE RATIO 8.6 (5.4-32.0); CALCIUM 7.9 MG/DL (8.5-10.1); CHLORIDE 100 MMOL/L (99-107); CREATININE 9.25 MG/DL (0.60-1.10); GLUCOSE 182 MG/DL (70-104); SODIUM 142 MMOL/L (135-145); TOTAL CARBON DIOXIDE 28.1 MMOL/L (24-32); eGFR 6 ML/MIN
[2018-10-10 09:29] LABS: PHOSPHORUS 9.8 MG/DL (2.3-4.5)
[2018-10-10 11:00] VITALS: BP 167/97
--- NOTE | 2018-10-10 11:00 | NUR ---
critical K of 3.0. Dr. Rahman notified. no new orders received.
[2018-10-10] MEDS: ondansetron/PF 4mg/2ml inj IV PRN (11:30)
[2018-10-10] MEDS ORDERED: sodium bicarbonate 650mg tablet PO SCH (13:00)
[2018-10-10] MEDS ORDERED: furosemide 40mg tablet PO SCH (13:00)
[2018-10-10] MEDS ORDERED: DILT240C PO (13:40)
[2018-10-10] MEDS ORDERED: CARV-50 PO (13:40)
[2018-10-10] MEDS ORDERED: HYDR-4070 PO (13:41)
[2018-10-10] MEDS ORDERED: INSU100I8 SQ (13:44)
[2018-10-10 15:00] VITALS: BP 200/117
[2018-10-10] MEDS: LORazepam 2 mg/ml vial IV PRN (15:20)
--- NOTE | 2018-10-10 17:29 | NUR ---
Lacey notified of pt BP 200s/120s. said would complete med recommendation.
--- NOTE | 2018-10-10 18:14 | NUR ---
Problems reprioritized. Patient report given, questions answered & plan of care reviewed with Lionel DEVINE.
[2018-10-10] MEDS ORDERED: potassium Cl 20 mEq/100mL bag IV ONE (18:50)
--- NOTE | 2018-10-10 18:52 | NUR ---
Patient in room PCU 3020. I have received report from DAVIDSON DEVINE and had the opportunity to ask questions and assume patient care. Pt currently resting in bed with family at the bedside. Is asking about his food tray. No other complaints at this time.
[2018-10-10 19:00] VITALS: BP 214/116
[2018-10-10] MEDS ORDERED: potassium Cl 40MEQ/NS 500ml 500 ML IV ONE (19:00)
[2018-10-10] MEDS: hydrALAZINE 25 MG tablet PO SCH (20:00)
[2018-10-10] MEDS: losartan 50mg tablet PO SCH (20:31)
[2018-10-10] MEDS: carVEDilol 12.5mg tablet PO SCH (20:32)
[2018-10-10] MEDS: gabapentin 100mg capsule PO SCH (20:32)
[2018-10-10] MEDS: metoclopramide 10mg tablet PO SCH (20:32)
[2018-10-10] MEDS ORDERED: diphenhydrAMINE 50 mg/ml inj IV PRN (20:45)
[2018-10-10] MEDS: insulin glargine (Lantus) pen - multi-dose SQ SCH (21:00)
[2018-10-10] MEDS ORDERED: insulin glargine (Lantus) pen - multi-dose SQ SCH (21:00)
[2018-10-10 23:00] VITALS: BP 166/92
[2018-10-11] VITALS (21 sets, daily range): BP systolic 94–178; BP diastolic 63–102
[2018-10-11] MEDS: ondansetron/PF 4mg/2ml inj IV PRN (01:56)
[2018-10-11] MEDS: normal saline 1000ml 1,000 ML IV SCH ×2 (04:38→17:58)
--- NOTE | 2018-10-11 06:18 | NUR ---
Patient in room PCU 3020. I have received report from SYBIL Polanco and had the opportunity to ask questions and assume patient care.
--- NOTE | 2018-10-11 06:29 | NUR ---
Problems reprioritized. Patient report given, questions answered & plan of care reviewed with GRAY DEVINE.
[2018-10-11 06:34] LABS: BASOPHILS % (AUTO) 0.4 % (0-1); EOSINOPHILS # (AUTO) 0.2 X10'3 (0-0.9); EOSINOPHILS % (AUTO) 1.8 % (0-6); HEMATOCRIT 30.4 % (42.0-52.0); HEMOGLOBIN 10.1 g/dl (14.0-17.9); LYMPHOCYTES # (AUTO) 2.6 X10'3 (1.1-4.8); LYMPHOCYTES % (AUTO) 24.3 % (21-51); MEAN CORPUSCULAR HEMOGLOBIN 29.3 PG (27.0-31.0); MEAN CORPUSCULAR HGB CONC 33.3 g/dL (33.0-36.5); MEAN CORPUSCULAR VOLUME 87.9 FL (78-98); MEAN PLATELET VOLUME 10.1 FL (7.4-10.4); MONOCYTES # (AUTO) 1.2 X10'3 (0-0.9); MONOCYTES % (AUTO) 11.2 % (2-12); NEUTROPHILS # (AUTO) 6.8 X10'3 (1.8-7.7); NEUTROPHILS % (AUTO) 62.3 % (42-75); PLATELET COUNT 325 X10'3 (140-440); RED BLOOD COUNT 3.46 X10'6 (4.70-6.10); RED CELL DISTRIBUTION WIDTH 12.8 % (11.5-14.5); WHITE BLOOD COUNT 10.9 X10'3 (4.5-11.0)
[2018-10-11 06:52] LABS: ALBUMIN 1.9 G/DL (3.4-5.0); ANION GAP 13 (8-16); BLOOD UREA NITROGEN 80 MG/DL (7-18); BUN/CREATININE RATIO 9.6 (5.4-32.0); CALCIUM 7.9 MG/DL (8.5-10.1); CHLORIDE 101 MMOL/L (99-107); CREATININE 8.36 MG/DL (0.60-1.10); GLUCOSE 129 MG/DL (70-104); PHOSPHORUS 8.4 MG/DL (2.3-4.5); SODIUM 140 MMOL/L (135-145); TOTAL CARBON DIOXIDE 26.1 MMOL/L (24-32); eGFR 7 ML/MIN
[2018-10-11 07:02] LABS: POTASSIUM 2.9 MMOL/L (3.5-5.1)
--- NOTE | 2018-10-11 07:10 | NUR ---
Notified Dr. Rahman of critical lab value for K 2.9, received orders for 40mEq IV potassium with lidocaine now and 40 mEq PO potassium now.
[2018-10-11] MEDS ORDERED: potassium Cl 20 mEq SR tablet PO STA (07:13)
[2018-10-11] MEDS ORDERED: pantoprazole 40mg Tablet.DR PO SCH (07:30)
[2018-10-11] MEDS: docusate sod 100mg capsule PO SCH ×2 (08:00→20:00)
[2018-10-11] MEDS: LORazepam 2 mg/ml vial IV PRN (08:43)
[2018-10-11] MEDS: metoclopramide 10mg tablet PO SCH ×3 (08:50→20:11)
[2018-10-11] MEDS: hydrALAZINE 25 MG tablet PO SCH ×3 (08:50→18:00)
[2018-10-11] MEDS: losartan 50mg tablet PO SCH (08:51)
[2018-10-11] MEDS: carVEDilol 12.5mg tablet PO SCH ×2 (08:51→20:00)
[2018-10-11] MEDS: diltiazem CD 120mg capsule (once-daily) PO SCH (08:51)
[2018-10-11] MEDS: famotidine/PF 10 mg/ml inj IV SCH (08:52)
[2018-10-11] MEDS: gabapentin 100mg capsule PO SCH ×2 (08:52→13:00)
[2018-10-11] MEDS: atorvastatin 20mg tablet PO SCH (08:52)
[2018-10-11] MEDS ORDERED: potassium Cl 40MEQ/NS 500ml 500 ML IV PRN ×2 (09:25)
[2018-10-11] MEDS ORDERED: LIDOcaine 1% 30ml vial 5 ML in potassium Cl 40MEQ/NS 500ml 500 ML IV PRN (09:55)
--- NOTE | 2018-10-11 12:00 | NUR ---
Called report to recovery.
--- NOTE | 2018-10-11 12:09 | NUR ---
Pt transported to OR via hospital bed in stable condition. Pt off floor at this time.
[2018-10-11] MEDS ORDERED: heparin sodium, porcine/PF 100unit/ml 5ML syringe ONE (12:21)
[2018-10-11] MEDS ORDERED: ceFAZolin 1000mg inj ONE ×3 (12:21→13:41)
[2018-10-11] MEDS ORDERED: BUPIVAcaine/PF 2.5mg/ml (0.25%) 10ml vial ONE (12:22)
[2018-10-11] MEDS ORDERED: mupirocin 2% ointment 22GM ONE (12:22)
[2018-10-11] MEDS ORDERED: desflurane 240ml liquid inh. IH ONE (13:00)
[2018-10-11] MEDS ORDERED: fentaNYL/PF 50MCG/1 ML 2ML syringe ONE (13:10)
[2018-10-11 13:11] LABS: ISTAT CREATININE 8.5 mg/dL (0.8-1.3); ISTAT HGB 10.9 g/dl (14.0-18.0); ISTAT IONIZED CALCIUM 1.04 mmol/L (1.03-1.32); ISTAT K 3.4 mmol/L (3.5-5.1); POC BUN/CREATININE RATIO 7.4 (5.4-32.0)
[2018-10-11] MEDS ORDERED: midazolam 2 mg/2 ml injection ONE (13:11)
[2018-10-11] MEDS ORDERED: LIDOcaine 2% (20mg/ml) 5ml vial ONE (13:11)
[2018-10-11] MEDS ORDERED: propofol inj 20 ML IV ONE (13:11)
[2018-10-11] MEDS ORDERED: rocuronium 10mg/ml inj IV ONE (13:17)
[2018-10-11] MEDS ORDERED: ringers solution, lacted 1,000 ML IV SCH (13:37)
[2018-10-11] MEDS ORDERED: proCHLORperazine 10 MG/2 ml inj IV PRN (13:40)
[2018-10-11] MEDS ORDERED: meperidine/PF 25mg/ml syringe IV PRN (13:40)
[2018-10-11] MEDS ORDERED: ondansetron/PF 4mg/2ml inj IV PRN (13:40)
[2018-10-11] MEDS ORDERED: morphine 4 MG/ML inj SYRINge IV PRN ×3 (13:40→17:05)
[2018-10-11] MEDS ORDERED: ondansetron/PF 4mg/2ml inj ONE ×2 (13:41→13:42)
[2018-10-11] MEDS ORDERED: neostigmine methylsulfate 1 MG/ML 10ml vial ONE (14:09)
[2018-10-11] MEDS ORDERED: glycopyrrolate 0.2mg/ml inj ONE (14:09)
--- NOTE | 2018-10-11 14:17 | NUR ---
Received from OR via , accompanied by Anesthesiologist DR GAMEZ and report given by Anesthesiolgist. AWAKE AND C/O SEVERE ABD DISCOMFORT. WILL MEDICATE. VITALS STABLE. DRESSINGS DI. DIALYSIS CATH IN ABD SEXCURED WITH 4X4S AND TAPE. ABD SOFT.
--- NOTE | 2018-10-11 15:07 | NUR ---
Report called to receiving nurse. Transferred via BED Belongings . Special Issues communicated to receiving nurse. AWAKE AND ORIENTED. VITALS STABLE. DRESSINGS DI. STATES PAIN IMPROVING. TO U RM 3020 AT THIS TIME.
--- NOTE | 2018-10-11 15:20 | NUR ---
Pt returned to unit at this time via hospital bed in stable condition, family at bedside. Bed is low/locked/SRx2, call light in reach. Will continue to monitor.
--- NOTE | 2018-10-11 16:02 | NUR ---
DM Consult: A1C 7.7 hx T2DM and gastroparesis. Currently to OR for PD access placement. Written DM/gastroparesis ed left at bedside w/ RD contact information provided. Addendum: 10/11/18 at [address] Amended: Links added.
--- NOTE | 2018-10-11 17:04 | NUR ---
Contacted Dr Rahman regarding patient pain 03/12, no pain meds ordered. Orders received.
[2018-10-11] MEDS ORDERED: morphine 2 MG/ML inj. syringe IV PRN (17:05)
--- NOTE | 2018-10-11 18:30 | NUR ---
Problems reprioritized. Patient report given, questions answered & plan of care reviewed with Sherri DEVINE and David DEVINE.
--- NOTE | 2018-10-11 18:42 | NUR ---
Patient in room PCU 3020. I have received report from Muriel and had the opportunity to ask questions and assume patient care.
--- NOTE | 2018-10-11 18:46 | NUR ---
Patient in room PCU 3020. I have received report from Carline DEVINE and had the opportunity to ask questions and assume patient care. Pt is finishing up his peritoneal dialysis. Pt reports his father accidentally kicked the tubing and pt is now in pain from hard tug. Pt received pain meds not too long ago. Will follow up and check to see what meds he has available. Family at the bedside.
[2018-10-11] MEDS ORDERED: acetaminophen 325mg tablet PO PRN (19:25)
[2018-10-11] MEDS: HYDROcodone/acetaminophen 10/325mg tab PO PRN (20:11)
[2018-10-11] MEDS: insulin glargine (Lantus) pen - multi-dose SQ SCH (21:00)
--- NOTE | 2018-10-12 00:31 | NUR ---
Held patient's blood pressure meds. patient was getting dialysis. pressures were normal
[2018-10-12 02:00] VITALS: BP 159/92
[2018-10-12] MEDS ORDERED: lactulose 20gm/30ml cup PO PRN (02:00)
[2018-10-12] MEDS: HYDROcodone/acetaminophen 10/325mg tab PO PRN (02:06)
--- NOTE | 2018-10-12 03:32 | NUR ---
IV infiltrated. Pt is refusing to have IV placed at this time after 1 failed attempt. Will pass this on to day shift RN.
[2018-10-12 03:59] VITALS: BP 159/92
[2018-10-12 06:00] VITALS: BP 193/102
--- NOTE | 2018-10-12 06:00 | NUR ---
Patient in room PCU 3020. I have received report from Sherri RN and David RN and had the opportunity to ask questions and assume patient care.
[2018-10-12 06:32] LABS: BASOPHILS # (AUTO) 0.1 X10'3 (0-0.2); BASOPHILS % (AUTO) 0.8 % (0-1); EOSINOPHILS # (AUTO) 0.3 X10'3 (0-0.9); EOSINOPHILS % (AUTO) 1.9 % (0-6); HEMATOCRIT 30.6 % (42.0-52.0); HEMOGLOBIN 10.1 g/dl (14.0-17.9); LYMPHOCYTES # (AUTO) 2.8 X10'3 (1.1-4.8); LYMPHOCYTES % (AUTO) 19.8 % (21-51); MEAN CORPUSCULAR HEMOGLOBIN 29.3 PG (27.0-31.0); MEAN CORPUSCULAR HGB CONC 33.1 g/dL (33.0-36.5); MEAN CORPUSCULAR VOLUME 88.6 FL (78-98); MEAN PLATELET VOLUME 10.6 FL (7.4-10.4); MONOCYTES # (AUTO) 1.4 X10'3 (0-0.9); MONOCYTES % (AUTO) 9.8 % (2-12); NEUTROPHILS # (AUTO) 9.5 X10'3 (1.8-7.7); NEUTROPHILS % (AUTO) 67.7 % (42-75); PLATELET COUNT 326 X10'3 (140-440); RED BLOOD COUNT 3.46 X10'6 (4.70-6.10); RED CELL DISTRIBUTION WIDTH 12.9 % (11.5-14.5); WHITE BLOOD COUNT 14.1 X10'3 (4.5-11.0)
--- NOTE | 2018-10-12 06:45 | NUR ---
Problems reprioritized. Patient report given, questions answered & plan of care reviewed with GRAY DEVINE. NEW GRAD documentation: I have reviewed and agree with all interventions, assessments performed and documented by ODETTE DEVINE. NEW GRAD Medication Administration: For this medication-pass time frame, all medication were reviewed, dispensed, administered and documented per hospital policy by ODETTE DEVINE.
[2018-10-12 06:47] LABS: ALBUMIN 1.8 G/DL (3.4-5.0); ANION GAP 11 (8-16); BLOOD UREA NITROGEN 70 MG/DL (7-18); BUN/CREATININE RATIO 8.8 (5.4-32.0); CALCIUM 7.7 MG/DL (8.5-10.1); CHLORIDE 103 MMOL/L (99-107); CREATININE 7.97 MG/DL (0.60-1.10); GLUCOSE 118 MG/DL (70-104); MAGNESIUM 1.9 MG/DL (1.5-2.4); PHOSPHORUS 7.5 MG/DL (2.3-4.5); POTASSIUM 3.2 MMOL/L (3.5-5.1); SODIUM 138 MMOL/L (135-145); TOTAL CARBON DIOXIDE 23.6 MMOL/L (24-32); eGFR 7 ML/MIN
[2018-10-12 07:11] LABS: LARGE PLATELETS FEW; PLATELET ESTIMATE NORMAL
[2018-10-12] MEDS: normal saline 1000ml 1,000 ML IV SCH (07:18)
[2018-10-12] MEDS: metoclopramide 10mg tablet PO SCH ×2 (07:56→13:34)
--- NOTE | 2018-10-12 07:59 | NUR ---
Pt having episode of emesis, unable to take PO. No IV access, unable to administer Zofran. Pt requesting new IV as soon as emesis subsides. Addendum: 10/12/18 at 0801 by Kim Haider RN PT BP 209/113, HR 85. Unable to take PO due to emesis. Denies CP/headache. Attempting reglan first and then will place IV to administer IV antiemetic.
[2018-10-12] MEDS ORDERED: gabapentin 100mg capsule PO SCH (08:00)
[2018-10-12] MEDS: docusate sod 100mg capsule PO SCH (08:00)
[2018-10-12] MEDS ORDERED: famotidine 20mg tablet PO SCH (08:00)
[2018-10-12] MEDS: carVEDilol 12.5mg tablet PO SCH (08:00)
[2018-10-12] MEDS: atorvastatin 20mg tablet PO SCH (08:00)
[2018-10-12] MEDS: diltiazem CD 120mg capsule (once-daily) PO SCH (08:00)
[2018-10-12] MEDS: losartan 50mg tablet PO SCH (08:00)
[2018-10-12] MEDS: hydrALAZINE 25 MG tablet PO SCH ×2 (08:00→13:35)
--- NOTE | 2018-10-12 09:05 | NUR ---
Pt SBP above 200. Pt having period of N/V. PIV to hand infiltrated. I went into room to assess for vein suitable for PIV. I had spoken to PICC RN she is standing by in case her US services were needed. I entered room, introduced myself and stated that i was there to look at his hands in order to place an iv. Pt stated that he didn't want to be messed with. I said "OK, I will just chart that you have refused, I have heard that your blood pressure is up and you have had some nausea and vomiting. If we get IV access we can give meds for that. he then said that he was not refusing and started flinging his arms around, stating "go ahead and get blood, do these arms look like someone who has been refusing. You have a bad attitude." I replied "I do not feel that i have a bad attitude. I am not here to get blood". He continued to be aggressive in his speech. I left the room. PICC RN entered room and placed PIV. Addendum: 10/12/18 at 1010 by Liana Rabago RN Amended: Links added.
[2018-10-12] MEDS: ondansetron/PF 4mg/2ml inj IV PRN (09:24)
--- NOTE | 2018-10-12 09:46 | NUR ---
Pt states nausea improved, receiving peritoneal dialysis at this time. Attempt to administer AM doses of medications, pt states does not want to take medication at this time, will take in a little while. Will attempt administration of medications about 1000.
[2018-10-12 10:15] VITALS: BP 171/91
--- NOTE | 2018-10-12 10:19 | NUR ---
Pt able to take only two blood pressure medications, refusing rest of medications due to laying flat for dialysis (BP 171/91, HR 84) and increasing nausea despite recent administration of Zofran.
[2018-10-12 11:00] VITALS: BP 170/90
--- NOTE | 2018-10-12 11:30 | NUR ---
Notified Dr. Rahman that patient refusing most of AM medications/non-compliant and that AM K+ draw was 3.4, no orders received.
--- NOTE | 2018-10-12 12:00 | NUR ---
Pt refusing correctional dose related to FSBG 145, MD aware of patient non-compliance.
[2018-10-12] MEDS ORDERED: FOLI1TAB16 PO (12:21)
[2018-10-12] MEDS ORDERED: FOLI1CAP PO (12:21)
--- NOTE | 2018-10-12 15:29 | NUR ---
Patient discharged at this time via in stable condition. Pt's is in attendance. Pt has all belongings. IV removed, catheter intact. Tele box removed and returned. Pt off floor,care relinquished.
== END 2018-10-12 16:07 | disposition home or self-care (01) | DRG 981 ==
LOC: ER 20:32 → UNDOADMIN 10-10 01:58 → ED HOLD 10-10 01:58 → PCU 3S 10-10 07:59
PROVIDERS: ADMIT Internal Medicine Critical Care Medicine; ATTEND Internal Medicine Critical Care Medicine
PROC: 3E1M39Z Irrigation of Peritoneal Cavity using Dialysate, Percutaneous Approach (ICD-10-PCS; 2018-10-11)
PROC: 0WHG43Z Insertion of Infusion Device into Peritoneal Cavity, Percutaneous Endoscopic Approach (ICD-10-PCS; principal; 2018-10-11 13:00)
DX: E11.43 Type 2 diabetes mellitus with diabetic autonomic (poly)neuropathy (principal); N18.6 End stage renal disease; I12.0 Hypertensive chronic kidney disease with stage 5 chronic kidney disease or end stage renal disease; N17.9 Acute kidney failure, unspecified; E11.21 Type 2 diabetes mellitus with diabetic nephropathy; E11.22 Type 2 diabetes mellitus with diabetic chronic kidney disease; E86.9 Volume depletion, unspecified; F12.90 Cannabis use, unspecified, uncomplicated; K31.84 Gastroparesis; Z79.4 Long term (current) use of insulin; Z88.2 Allergy status to sulfonamides; Z79.899 Other long term (current) drug therapy; Z90.49 Acquired absence of other specified parts of digestive tract
CPT/HCPCS: 96374; 96375; 99285; Z7506; 36415; 80047; 80048; 80053; 80069; 81001; 82150; 82948; 83036; 83690; 83735; 84100; 85025; 85610; 86706; 87070; 93005; A7000; C1750; C1758; G0378; J0690; J1200; J1642; J1644; J1815; J2001; J2060; J2175; J2250; J2270; J2405; J2704; J2710; J2765; J3010; J3480; J3490; J7030; J7120; J8597

== ENCOUNTER 2018-12-09 04:24 | Emergency (ER) | payer BC ==
[~2018-12-09] VITALS: Ht 182.9 cm; Wt 135.0 kg
[~2018-12-09 04:24] MED LIST changes: -CARCD120C PO; +DILT240C PO; +FOLI1CAP PO; +FOLI1TAB16 PO; -HYDR-4069 PO; +HYDR-4070 PO; +INSU100I8 SQ; -INSU100V11 SQ; -PHE25R PR
[2018-12-09 05:11] LABS: CLARITY,URINE CLEAR (Clear); COLOR,URINE YELLOW (Yellow); GLUCOSE, URINE 250 mg/dl (Neg); KETONES,URINE NEGATIVE (Neg); LEUKOCYTE ESTERASE ,URINE NEGATIVE (Neg); NITRITES, URINE NEGATIVE (Neg); OCCULT BLOOD,URINE SMALL (Neg); PROTEIN,URINE >=300 mg/dl (Neg); UROBILINOGEN,URINE 0.2 E.U/dL (0.2-1.0)
[2018-12-09 05:17] LABS: BACTERIA,URINE FEW /HPF (Neg); SQUAMOUS EPITHELIAL CELL,UR FEW /LPF (FEW); UA COLLECTION TYPE CLN CATCH MIDSTREAM; WBC,URINE 0-4 /HPF (0-4)
[2018-12-09 05:35] LABS: BASOPHILS # (AUTO) 0.1 X10'3 (0-0.2); BASOPHILS % (AUTO) 0.6 % (0-1); EOSINOPHILS % (AUTO) 0.3 % (0-6); HEMATOCRIT 24.4 % (42.0-52.0); HEMOGLOBIN 8.2 g/dl (14.0-17.9); LYMPHOCYTES # (AUTO) 1.8 X10'3 (1.1-4.8); LYMPHOCYTES % (AUTO) 13.1 % (21-51); MEAN CORPUSCULAR HEMOGLOBIN 29.1 PG (27.0-31.0); MEAN CORPUSCULAR HGB CONC 33.7 g/dL (33.0-36.5); MEAN CORPUSCULAR VOLUME 86.4 FL (78-98); MEAN PLATELET VOLUME 9.6 FL (7.4-10.4); MONOCYTES # (AUTO) 1.6 X10'3 (0-0.9); MONOCYTES % (AUTO) 11.8 % (2-12); NEUTROPHILS # (AUTO) 10.1 X10'3 (1.8-7.7); NEUTROPHILS % (AUTO) 74.2 % (42-75); PLATELET COUNT 301 X10'3 (140-440); RED BLOOD COUNT 2.82 X10'6 (4.70-6.10); RED CELL DISTRIBUTION WIDTH 16.2 % (11.5-14.5); WHITE BLOOD COUNT 13.6 X10'3 (4.5-11.0)
[2018-12-09 05:39] LABS: ALBUMIN 1.7 G/DL (3.4-5.0); ANION GAP 10 (8-16); BLOOD UREA NITROGEN 55 MG/DL (7-18); BUN/CREATININE RATIO 7.5 (5.4-32.0); CALCIUM 7.2 MG/DL (8.5-10.1); CHLORIDE 107 MMOL/L (99-107); CREATININE 7.33 MG/DL (0.60-1.10); GLUCOSE 126 MG/DL (70-104); SODIUM 138 MMOL/L (135-145); TOTAL CARBON DIOXIDE 20.6 MMOL/L (24-32); eGFR 8 ML/MIN
[2018-12-09 05:57] LABS: ALANINE AMINOTRANSFERASE 16 U/L (12-78); ALBUMIN/GLOBULIN RATIO 0.5 (1.1-1.5); ASPARTATE AMINO TRANSFERASE 33 U/L (10-37); BILIRUBIN,TOTAL 0.5 MG/DL (0.1-1.0); TOTAL PROTEIN 5.2 G/DL (6.4-8.2)
[2018-12-09 05:59] LABS: ALKALINE PHOSPHATASE 109 IU/L (46-116)
[2018-12-09 06:11] LABS: PARTIAL THROMBOPLASTIN TIME 27 SECONDS (22-32)
[2018-12-09] MEDS ORDERED: ondansetron 4mg rapidly disintigrating tab PO ONE (06:40)
[2018-12-09 06:47] VITALS: BP 190/113
[2018-12-10] MEDS ORDERED: SEVE800T8 PO (09:32)
[2018-12-10] MEDS ORDERED: FURO40TA4 PO (09:32)
== END 2018-12-09 07:13 | disposition home or self-care (01) ==
LOC: ER 04:25
DX: T85.611A Breakdown (mechanical) of intraperitoneal dialysis catheter, initial encounter (principal); R11.2 Nausea with vomiting, unspecified; I12.0 Hypertensive chronic kidney disease with stage 5 chronic kidney disease or end stage renal disease; N18.6 End stage renal disease; E11.22 Type 2 diabetes mellitus with diabetic chronic kidney disease; Z88.2 Allergy status to sulfonamides; Z79.4 Long term (current) use of insulin; Z99.2 Dependence on renal dialysis; Z79.899 Other long term (current) drug therapy; Y83.8 Other surgical procedures as the cause of abnormal reaction of the patient, or of later complication, without mention of misadventure at the time of the procedure; Y92.89 Other specified places as the place of occurrence of the external cause
CPT/HCPCS: 36415; 80053; 81001; 85025; 85610; 85730; 86885; 86900; 86901; 99283

== ENCOUNTER 2019-06-13 08:38 | Day surgery (SDC) | payer BC ==
[~2019-06-13 08:38] MED LIST changes: +DILT-94 PO; -DILT240C PO; +FURO40TA4 PO; -ONDA4TAB6 PO; -PROM25SU46 RC; +SEVE800T8 PO
== END 2019-06-13 10:45 | disposition home or self-care (01) ==
LOC: WOUND CARE 08:38
PROVIDERS: ATTEND Surgery
DX: E11.621 Type 2 diabetes mellitus with foot ulcer (principal); L97.511 Non-pressure chronic ulcer of other part of right foot limited to breakdown of skin; L97.521 Non-pressure chronic ulcer of other part of left foot limited to breakdown of skin; E11.21 Type 2 diabetes mellitus with diabetic nephropathy; E11.43 Type 2 diabetes mellitus with diabetic autonomic (poly)neuropathy; E11.10 Type 2 diabetes mellitus with ketoacidosis without coma; E11.65 Type 2 diabetes mellitus with hyperglycemia; E11.51 Type 2 diabetes mellitus with diabetic peripheral angiopathy without gangrene; E11.22 Type 2 diabetes mellitus with diabetic chronic kidney disease; I12.0 Hypertensive chronic kidney disease with stage 5 chronic kidney disease or end stage renal disease; N18.6 End stage renal disease; E78.5 Hyperlipidemia, unspecified; F41.1 Generalized anxiety disorder; F12.90 Cannabis use, unspecified, uncomplicated; Z79.4 Long term (current) use of insulin; Z79.899 Other long term (current) drug therapy; Z99.2 Dependence on renal dialysis; Z90.49 Acquired absence of other specified parts of digestive tract; Z87.891 Personal history of nicotine dependence
CPT/HCPCS: 36416; 82948; 97597; 97598; A4663; A6021; A6154

== ENCOUNTER 2019-06-17 11:03 | Day surgery (SDC) | payer BC ==
[2019-06-17] MEDS ORDERED: LIDOcaine 2% 5ml jelly ONE ×2 (12:22→12:31)
== END 2019-06-17 13:15 | disposition home or self-care (01) ==
LOC: WOUND CARE 11:03
PROVIDERS: ATTEND Surgery
DX: E11.621 Type 2 diabetes mellitus with foot ulcer (principal); L97.512 Non-pressure chronic ulcer of other part of right foot with fat layer exposed; L97.521 Non-pressure chronic ulcer of other part of left foot limited to breakdown of skin; E11.21 Type 2 diabetes mellitus with diabetic nephropathy; E11.43 Type 2 diabetes mellitus with diabetic autonomic (poly)neuropathy; E11.10 Type 2 diabetes mellitus with ketoacidosis without coma; E11.65 Type 2 diabetes mellitus with hyperglycemia; E11.51 Type 2 diabetes mellitus with diabetic peripheral angiopathy without gangrene; E11.22 Type 2 diabetes mellitus with diabetic chronic kidney disease; I12.0 Hypertensive chronic kidney disease with stage 5 chronic kidney disease or end stage renal disease; N18.6 End stage renal disease; E78.5 Hyperlipidemia, unspecified; F41.1 Generalized anxiety disorder; F12.90 Cannabis use, unspecified, uncomplicated; Z79.4 Long term (current) use of insulin; Z79.899 Other long term (current) drug therapy; Z99.2 Dependence on renal dialysis; Z90.49 Acquired absence of other specified parts of digestive tract; Z87.891 Personal history of nicotine dependence
CPT/HCPCS: 36416; 82948; 97597; A4663; A6021; A6154

== ENCOUNTER 2019-06-24 08:11 | Day surgery (SDC) | payer BC ==
[2019-06-24] MEDS ORDERED: LIDOcaine/PRILOcaine 5gm cream TP ONE (09:31)
[2019-06-27] MEDS ORDERED: BENA40TA73 PO (12:56)
[2019-06-27] MEDS ORDERED: BENA40TA8 PO (14:30)
[2019-06-27] MEDS ORDERED: GABA600T13 PO (17:37)
[2019-06-28] MEDS ORDERED: CLE150C PO (15:51)
[2019-06-28] MEDS ORDERED: NAFC2FRO IV (15:51)
== END 2019-06-24 12:31 | disposition home or self-care (01) ==
LOC: WOUND CARE 08:11
PROVIDERS: ATTEND Surgery
DX: E11.621 Type 2 diabetes mellitus with foot ulcer (principal); L97.515 Non-pressure chronic ulcer of other part of right foot with muscle involvement without evidence of necrosis; L97.521 Non-pressure chronic ulcer of other part of left foot limited to breakdown of skin; E11.21 Type 2 diabetes mellitus with diabetic nephropathy; E11.43 Type 2 diabetes mellitus with diabetic autonomic (poly)neuropathy; E11.10 Type 2 diabetes mellitus with ketoacidosis without coma; E11.65 Type 2 diabetes mellitus with hyperglycemia; E11.51 Type 2 diabetes mellitus with diabetic peripheral angiopathy without gangrene; E11.22 Type 2 diabetes mellitus with diabetic chronic kidney disease; I12.0 Hypertensive chronic kidney disease with stage 5 chronic kidney disease or end stage renal disease; N18.6 End stage renal disease; E78.5 Hyperlipidemia, unspecified; F41.1 Generalized anxiety disorder; F12.90 Cannabis use, unspecified, uncomplicated; Z79.4 Long term (current) use of insulin; Z79.899 Other long term (current) drug therapy; Z99.2 Dependence on renal dialysis; Z90.49 Acquired absence of other specified parts of digestive tract; Z87.891 Personal history of nicotine dependence
CPT/HCPCS: 11043; 11045; 36416; 82948; 87070; 87075; 87077; 87102; 87176; 87186; 93922; 93925; A4663; A6021; A6154

== ENCOUNTER 2019-07-05 08:01 | Day surgery (SDC) | payer BC ==
[~2019-07-05 08:01] MED LIST changes: +BENA40TA8 PO; +CLE150C PO; -GABA-530 PO; +GABA600T13 PO; -INSU100I8 SQ; -LANTUS SQ; -LOSA50TA3 PO; +NAFC2FRO IV
[2019-07-05] MEDS ORDERED: LIDOcaine 2% 5ml jelly ONE (09:14)
== END 2019-07-05 10:18 | disposition home or self-care (01) ==
LOC: WOUND CARE 08:01
PROVIDERS: ATTEND Surgery
DX: E11.621 Type 2 diabetes mellitus with foot ulcer (principal); L97.515 Non-pressure chronic ulcer of other part of right foot with muscle involvement without evidence of necrosis; L97.521 Non-pressure chronic ulcer of other part of left foot limited to breakdown of skin; E11.43 Type 2 diabetes mellitus with diabetic autonomic (poly)neuropathy; E11.10 Type 2 diabetes mellitus with ketoacidosis without coma; E11.65 Type 2 diabetes mellitus with hyperglycemia; E11.21 Type 2 diabetes mellitus with diabetic nephropathy; E11.51 Type 2 diabetes mellitus with diabetic peripheral angiopathy without gangrene; E11.69 Type 2 diabetes mellitus with other specified complication; M86.9 Osteomyelitis, unspecified; E11.22 Type 2 diabetes mellitus with diabetic chronic kidney disease; I12.0 Hypertensive chronic kidney disease with stage 5 chronic kidney disease or end stage renal disease; N18.6 End stage renal disease; E78.5 Hyperlipidemia, unspecified; F12.90 Cannabis use, unspecified, uncomplicated; F41.1 Generalized anxiety disorder; Z79.4 Long term (current) use of insulin; Z90.49 Acquired absence of other specified parts of digestive tract; Z99.2 Dependence on renal dialysis; Z87.891 Personal history of nicotine dependence
CPT/HCPCS: 36416; 97597; A6222; 82948; A4663; A6021; A6196; A6446

== ENCOUNTER 2019-07-05 10:33 | Outpatient (CLI) | payer BC | END 2019-07-05 23:59 | disposition home or self-care (01) | LOC: RAD 10:33 | PROVIDERS: ATTEND Internal Medicine Critical Care Medicine | DX: T85.691A Other mechanical complication of intraperitoneal dialysis catheter, initial encounter (principal); X58.XXXA Exposure to other specified factors, initial encounter; Y93.89 Activity, other specified; Y92.89 Other specified places as the place of occurrence of the external cause; Y84.1 Kidney dialysis as the cause of abnormal reaction of the patient, or of later complication, without mention of misadventure at the time of the procedure | CPT/HCPCS: 74018 ==

== ENCOUNTER 2019-07-07 15:21 | Emergency (ER) | payer BC ==
[~2019-07-07] VITALS: Ht 182.9 cm; Wt 136.4 kg
[2019-07-07 16:21] LABS: BASOPHILS # (AUTO) 0.1 X10'3 (0-0.2); BASOPHILS % (AUTO) 0.9 % (0-1); EOSINOPHILS # (AUTO) 0.2 X10'3 (0-0.9); EOSINOPHILS % (AUTO) 1.7 % (0-6); HEMATOCRIT 24.1 % (42.0-52.0); HEMOGLOBIN 7.6 g/dl (14.0-17.9); LYMPHOCYTES # (AUTO) 1.2 X10'3 (1.1-4.8); LYMPHOCYTES % (AUTO) 8.7 % (21-51); MEAN CORPUSCULAR HEMOGLOBIN 26.5 PG (27.0-31.0); MEAN CORPUSCULAR HGB CONC 31.7 g/dL (33.0-36.5); MEAN CORPUSCULAR VOLUME 83.7 FL (78-98); MEAN PLATELET VOLUME 9.6 FL (7.4-10.4); MONOCYTES # (AUTO) 1.4 X10'3 (0-0.9); MONOCYTES % (AUTO) 10.5 % (2-12); NEUTROPHILS # (AUTO) 10.7 X10'3 (1.8-7.7); NEUTROPHILS % (AUTO) 78.2 % (42-75); PLATELET COUNT 366 X10'3 (140-440); RED BLOOD COUNT 2.88 X10'6 (4.70-6.10); RED CELL DISTRIBUTION WIDTH 17.8 % (11.5-14.5); WHITE BLOOD COUNT 13.6 X10'3 (4.5-11.0)
[2019-07-07 16:44] LABS: ALANINE AMINOTRANSFERASE 17 U/L (12-78); ALBUMIN 1.3 G/DL (3.4-5.0); ALBUMIN/GLOBULIN RATIO 0.2 (1.1-1.5); ALKALINE PHOSPHATASE 86 IU/L (46-116); ANION GAP 18 (8-16); ASPARTATE AMINO TRANSFERASE 27 U/L (10-37); BILIRUBIN,TOTAL 0.8 MG/DL (0.1-1.0); BLOOD UREA NITROGEN 88 MG/DL (7-18); BUN/CREATININE RATIO 5.2 (5.4-32.0); CALCIUM 6.3 MG/DL (8.5-10.1); CHLORIDE 102 MMOL/L (99-107); CREATININE 16.87 MG/DL (0.60-1.10); GLUCOSE 108 MG/DL (70-104); POTASSIUM 3.4 MMOL/L (3.5-5.1); SODIUM 141 MMOL/L (135-145); TOTAL CARBON DIOXIDE 21.2 MMOL/L (24-32); TOTAL PROTEIN 6.6 G/DL (6.4-8.2); eGFR 3 ML/MIN
[2019-07-07 16:45] LABS: PARTIAL THROMBOPLASTIN TIME 33 SECONDS (22-32)
[2019-07-07 17:58] LABS: CLARITY,URINE SLIGHTLY CLOUDY (Clear); COLOR,URINE YELLOW (Yellow); GLUCOSE, URINE 100 mg/dl (Neg); KETONES,URINE NEGATIVE (Neg); LEUKOCYTE ESTERASE ,URINE SMALL (Neg); NITRITES, URINE NEGATIVE (Neg); OCCULT BLOOD,URINE SMALL (Neg); PROTEIN,URINE >=300 mg/dl (Neg); UROBILINOGEN,URINE 0.2 E.U/dL (0.2-1.0)
[2019-07-07 18:04] LABS: UA COLLECTION TYPE URINAL
[2019-07-07 18:05] LABS: BACTERIA,URINE 2+ /HPF (Neg); MUCUS STRANDS FEW /LPF (Neg); RBC,URINE 0-2 /HPF (0-2); SQUAMOUS EPITHELIAL CELL,UR NONE SEEN /LPF (FEW); WBC,URINE 30-50 /HPF (0-4)
[2019-07-07 18:11] VITALS: BP 142/88
== END 2019-07-07 18:51 | disposition home or self-care (01) ==
LOC: ER 15:22
DX: D64.9 Anemia, unspecified (principal); I13.11 Hypertensive heart and chronic kidney disease without heart failure, with stage 5 chronic kidney disease, or end stage renal disease; E11.22 Type 2 diabetes mellitus with diabetic chronic kidney disease; N18.6 End stage renal disease; Z99.2 Dependence on renal dialysis; Z88.2 Allergy status to sulfonamides; Z79.2 Long term (current) use of antibiotics; Z79.899 Other long term (current) drug therapy
CPT/HCPCS: 36415; 71045; 80053; 81001; 85025; 85610; 85730; 86885; 86900; 86901; 86920; 87088; 93005; 99284

== ENCOUNTER 2019-07-10 08:03 | Day surgery (SDC) | payer BC | END 2019-07-10 10:52 | disposition home or self-care (01) | LOC: WOUND CARE 08:03 | PROVIDERS: ATTEND Surgery | DX: E11.621 Type 2 diabetes mellitus with foot ulcer (principal); L97.512 Non-pressure chronic ulcer of other part of right foot with fat layer exposed; L97.522 Non-pressure chronic ulcer of other part of left foot with fat layer exposed; E11.43 Type 2 diabetes mellitus with diabetic autonomic (poly)neuropathy; E11.10 Type 2 diabetes mellitus with ketoacidosis without coma; E11.65 Type 2 diabetes mellitus with hyperglycemia; E11.21 Type 2 diabetes mellitus with diabetic nephropathy; E11.51 Type 2 diabetes mellitus with diabetic peripheral angiopathy without gangrene; E11.69 Type 2 diabetes mellitus with other specified complication; M86.8X7 Other osteomyelitis, ankle and foot; I12.0 Hypertensive chronic kidney disease with stage 5 chronic kidney disease or end stage renal disease; E11.22 Type 2 diabetes mellitus with diabetic chronic kidney disease; N18.6 End stage renal disease; E78.5 Hyperlipidemia, unspecified; F12.90 Cannabis use, unspecified, uncomplicated; F41.1 Generalized anxiety disorder; Z79.4 Long term (current) use of insulin; Z90.49 Acquired absence of other specified parts of digestive tract; Z99.2 Dependence on renal dialysis; Z87.891 Personal history of nicotine dependence; Z79.899 Other long term (current) drug therapy; Z86.14 Personal history of Methicillin resistant Staphylococcus aureus infection | CPT/HCPCS: 36416; 82948; 97597; A6222; A4663; A6196; A6446 ==

== ENCOUNTER 2019-07-16 08:15 | Day surgery (SDC) | payer BC ==
[~2019-07-16 08:15] MED LIST changes: -NAFC2FRO IV
[2019-07-16] MEDS ORDERED: LIDOcaine 2% 5ml jelly ONE (09:04)
== END 2019-07-16 10:07 | disposition home or self-care (01) ==
LOC: WOUND CARE 08:15
PROVIDERS: ATTEND Nurse Practitioner Family
DX: E11.621 Type 2 diabetes mellitus with foot ulcer (principal); L97.512 Non-pressure chronic ulcer of other part of right foot with fat layer exposed; L97.522 Non-pressure chronic ulcer of other part of left foot with fat layer exposed; E11.43 Type 2 diabetes mellitus with diabetic autonomic (poly)neuropathy; E11.10 Type 2 diabetes mellitus with ketoacidosis without coma; E11.65 Type 2 diabetes mellitus with hyperglycemia; E11.21 Type 2 diabetes mellitus with diabetic nephropathy; E11.51 Type 2 diabetes mellitus with diabetic peripheral angiopathy without gangrene; E11.69 Type 2 diabetes mellitus with other specified complication; M86.8X7 Other osteomyelitis, ankle and foot; I12.0 Hypertensive chronic kidney disease with stage 5 chronic kidney disease or end stage renal disease; E11.22 Type 2 diabetes mellitus with diabetic chronic kidney disease; N18.6 End stage renal disease; E78.5 Hyperlipidemia, unspecified; F12.90 Cannabis use, unspecified, uncomplicated; F41.1 Generalized anxiety disorder; Z79.4 Long term (current) use of insulin; Z90.49 Acquired absence of other specified parts of digestive tract; Z99.2 Dependence on renal dialysis; Z87.891 Personal history of nicotine dependence; Z79.899 Other long term (current) drug therapy; Z86.14 Personal history of Methicillin resistant Staphylococcus aureus infection
CPT/HCPCS: 36416; 82948; 97597; A6222; A4663; A6021; A6154; A6446

== ENCOUNTER 2019-07-21 14:08 | Inpatient (IN) | payer BC ==
[~2019-07-21] VITALS: Ht 182.9 cm; Wt 145.0 kg
[2019-07-21 15:13] LABS: BASOPHILS # (AUTO) 0.1 X10'3 (0-0.2); BASOPHILS % (AUTO) 0.7 % (0-1); EOSINOPHILS # (AUTO) 0.1 X10'3 (0-0.9); EOSINOPHILS % (AUTO) 0.4 % (0-6); HEMATOCRIT 24.9 % (42.0-52.0); HEMOGLOBIN 7.9 g/dl (14.0-17.9); LYMPHOCYTES % (AUTO) 5.7 % (21-51); MEAN CORPUSCULAR HEMOGLOBIN 25.8 PG (27.0-31.0); MEAN CORPUSCULAR HGB CONC 31.8 g/dL (33.0-36.5); MEAN PLATELET VOLUME 8.8 FL (7.4-10.4); NEUTROPHILS # (AUTO) 14.9 X10'3 (1.8-7.7); NEUTROPHILS % (AUTO) 82.2 % (42-75); PLATELET COUNT 448 X10'3 (140-440); RED BLOOD COUNT 3.07 X10'6 (4.70-6.10); RED CELL DISTRIBUTION WIDTH 19.7 % (11.5-14.5); WHITE BLOOD COUNT 18.2 X10'3 (4.5-11.0)
[2019-07-21] MEDS ORDERED: morphine 10mg/ml inj. IV ONE (15:15)
[2019-07-21 15:28] LABS: PARTIAL THROMBOPLASTIN TIME 32 SECONDS (22-32)
[2019-07-21 15:47] LABS: ALANINE AMINOTRANSFERASE 14 U/L (12-78); ALBUMIN 1.1 G/DL (3.4-5.0); ALBUMIN/GLOBULIN RATIO 0.2 (1.1-1.5); ALKALINE PHOSPHATASE 71 IU/L (46-116); ANION GAP 19 (8-16); ASPARTATE AMINO TRANSFERASE 23 U/L (10-37); BILIRUBIN,TOTAL 0.9 MG/DL (0.1-1.0); BLOOD UREA NITROGEN 75 MG/DL (7-18); BUN/CREATININE RATIO 5.6 (5.4-32.0); CHLORIDE 98 MMOL/L (99-107); CREATININE 13.48 MG/DL (0.60-1.10); GLUCOSE 106 MG/DL (70-104); POTASSIUM 3.3 MMOL/L (3.5-5.1); SODIUM 138 MMOL/L (135-145); TOTAL CARBON DIOXIDE 21.1 MMOL/L (24-32); TOTAL PROTEIN 6.9 G/DL (6.4-8.2); eGFR 4 ML/MIN
[2019-07-21 15:49] LABS: CALCIUM 5.7 MG/DL (8.5-10.1)
[2019-07-21 16:03] LABS: ANISOCYTOSIS 2+; HYPOCHROMASIA 1+; PLATELET ESTIMATE INCREASED; POLYCHROMASIA 1+; ROULEAUX 1+
[2019-07-21] MEDS ORDERED: vancomycin inj 500 MG in normal saline 100ml IV soln 100 ML IV ONE (16:05)
--- NOTE | 2019-07-21 16:26 | NUR ---
DIALYSIS NURSE AT BEDSIDE TO DETERMINE LAST DIALYSIS 2.5% 2500ML AND GREEN BAG, HE WILL RETURN TO DISCUSS WITH DUTCH IN PHARMACY, PT HAS WOUNDS THAT WERE JUST DRESSED BY HOME WOUND NURSE YESTERDAY, WILL NOTIFY FLOOR NURSE TO TAKE WOUND PICUTURES WHEN PT ARRIVES TO FLOOR, DISCUSSED 24 HOURS TO TAKE WOUND PHOTOS.
[2019-07-21] MEDS ORDERED: PERIT DIALYSIS IV ONE (16:35)
[2019-07-21] MEDS ORDERED: metoclopramide 5 mg/ml inj IV PRN (16:35)
[2019-07-21] MEDS ORDERED: morphine 2 MG/ML inj. syringe IV PRN (16:35)
[2019-07-21] MEDS ORDERED: VANCOMYCIN IV ONE (16:35)
[2019-07-21] MEDS ORDERED: DEXT IV ONE (16:35)
[2019-07-21] MEDS ORDERED: HYDROcodone/acetaminophen 10/325mg tab PO PRN (16:35)
[2019-07-21] MEDS ORDERED: acetaminophen 325mg tablet PO PRN (16:35)
[2019-07-21] MEDS ORDERED: SEVE800T7 PO (17:10)
[2019-07-21] MEDS ORDERED: GABA-532 PO (17:10)
[2019-07-21] MEDS ORDERED: PANT-47 PO (17:10)
[2019-07-21] MEDS ORDERED: SUCR500T PO (17:10)
[2019-07-21] MEDS ORDERED: ZAR5T PO (17:10)
[2019-07-21] MEDS ORDERED: BENA40TA8 PO (17:10)
[2019-07-21] MEDS ORDERED: CLIN300C19 PO (17:10)
[2019-07-21] MEDS ORDERED: FOLI0.8T19 PO (17:27)
[2019-07-21] MEDS ORDERED: NEPHC PO (17:27)
[2019-07-21] MEDS ORDERED: FOLI0.4T14 PO (17:27)
[2019-07-21] MEDS ORDERED: PERIT DIALYSIS IP PRN (17:39)
[2019-07-21] MEDS ORDERED: DEXT IP PRN (17:39)
[2019-07-21] MEDS ORDERED: calcium chloride 100 MG/1 ML inj IV ONE (17:55)
[2019-07-21] MEDS ORDERED: glucagon, human recombinant 1mg kit SUBCUT PRN (18:20)
[2019-07-21] MEDS ORDERED: MESSAGE TO PHARMACY PO ONE (18:20)
[2019-07-21] MEDS ORDERED: dextrose 50%-water 50ml dispensing syringe IV PRN ×2 (18:20)
[2019-07-21] MEDS ORDERED: dextrose ORAL solution 15 GM/59 ML bottle PO PRN ×2 (18:20)
[2019-07-21] MEDS ORDERED: calcium chloride inj. 1,000 MG in normal saline 100ml IV soln 90 ML IV ONE (18:25)
--- NOTE | 2019-07-21 18:39 | NUR ---
CALLED NAZIA IN DIETARY TO SEND UP SUPPL DRINK, CC AND RENAL DIET, SHE SAID SHE WILL SEND DINNER TO ED.
[2019-07-21] MEDS: ondansetron/PF 4mg/2ml inj IV PRN (19:09)
--- NOTE | 2019-07-21 19:19 | NUR ---
REPORT CALLED TO SYBIL CHRISTY, MEDICAL/SURGICAL. IPA [id number] . , AGUSTINA, AT BEDSIDE. PT TO TRANSFER UPSTAIRS IN 20 MIN.
[2019-07-21] MEDS: docusate sod 100mg capsule PO SCH (20:00)
[2019-07-21 20:15] VITALS: BP 155/80
[2019-07-21] MEDS: morphine 2 MG/ML inj. syringe IV PRN (20:43)
[2019-07-21] MEDS: NORMAL SALINE IV SCH (20:52)
[2019-07-21] MEDS: NAFCILLIN IV SCH (20:52)
[2019-07-21] MEDS: clindamycin 150mg capsule PO SCH (20:53)
[2019-07-21] MEDS: carVEDilol 12.5mg tablet PO SCH (20:53)
[2019-07-21] MEDS: furosemide 40mg tablet PO SCH (20:54)
[2019-07-21] MEDS: SUCROFERRIC OXYHYDROXIDE PO SCH (20:54)
[2019-07-21] MEDS: metolazone 2.5mg tablet PO SCH (20:55)
[2019-07-21] MEDS: NUT.TX.IMP.RENAL FXN,LAC-REDUC (Nepro) 237 ML VANILLA PO SCH (20:58)
[2019-07-21] MEDS: insulin glargine (Lantus) pen - multi-dose SQ SCH (21:00)
[2019-07-21] MEDS ORDERED: gabapentin 300mg capsule PO SCH (21:00)
[2019-07-21] MEDS: sevelamer carbonate 800mg tablet PO SCH (21:25)
[2019-07-21] MEDS: metoclopramide 10mg tablet PO SCH (21:25)
[2019-07-21] MEDS: hydrALAZINE 25 MG tablet PO SCH (21:25)
[2019-07-21] MEDS: heparin, porcine 5000 units/ml vial SQ SCH (21:26)
[2019-07-21] MEDS: proCHLORperazine 10 MG/2 ml inj IV PRN (21:41)
[2019-07-21] MEDS ORDERED: tPA-cathflo 2 MG/2 ml IV flush IVF ONE (22:50)
[2019-07-22] VITALS: BP 129/63
[2019-07-22] MEDS: ondansetron/PF 4mg/2ml inj IV PRN ×3 (01:09→17:31)
[2019-07-22] MEDS: morphine 2 MG/ML inj. syringe IV PRN ×5 (05:02→22:58)
[2019-07-22 05:29] LABS: BASOPHILS # (AUTO) 0.1 X10'3 (0-0.2); BASOPHILS % (AUTO) 0.3 % (0-1); EOSINOPHILS % (AUTO) 0 % (0-6); HEMATOCRIT 23.9 % (42.0-52.0); HEMOGLOBIN 7.6 g/dl (14.0-17.9); LYMPHOCYTES # (AUTO) 0.9 X10'3 (1.1-4.8); LYMPHOCYTES % (AUTO) 5.3 % (21-51); MEAN CORPUSCULAR HEMOGLOBIN 26.1 PG (27.0-31.0); MEAN CORPUSCULAR HGB CONC 31.8 g/dL (33.0-36.5); MEAN CORPUSCULAR VOLUME 82.2 FL (78-98); MEAN PLATELET VOLUME 9.1 FL (7.4-10.4); MONOCYTES # (AUTO) 1.6 X10'3 (0-0.9); MONOCYTES % (AUTO) 9.6 % (2-12); NEUTROPHILS # (AUTO) 14.3 X10'3 (1.8-7.7); NEUTROPHILS % (AUTO) 84.8 % (42-75); PLATELET COUNT 410 X10'3 (140-440); RED CELL DISTRIBUTION WIDTH 19.5 % (11.5-14.5); WHITE BLOOD COUNT 16.8 X10'3 (4.5-11.0)
[2019-07-22 05:57] LABS: ALANINE AMINOTRANSFERASE 50 U/L (12-78); ALBUMIN/GLOBULIN RATIO 0.2 (1.1-1.5); ALKALINE PHOSPHATASE 65 IU/L (46-116); ANION GAP 17 (8-16); ASPARTATE AMINO TRANSFERASE 171 U/L (10-37); BILIRUBIN,TOTAL 0.9 MG/DL (0.1-1.0); BLOOD UREA NITROGEN 74 MG/DL (7-18); BUN/CREATININE RATIO 5.4 (5.4-32.0); CALCIUM 6.2 MG/DL (8.5-10.1); CHLORIDE 99 MMOL/L (99-107); GLUCOSE 287 MG/DL (70-104); POTASSIUM 3.3 MMOL/L (3.5-5.1); SODIUM 139 MMOL/L (135-145); TOTAL PROTEIN 6.7 G/DL (6.4-8.2); eGFR 4 ML/MIN
[2019-07-22 06:00] LABS: PHOSPHORUS 12.1 MG/DL (2.3-4.5)
--- NOTE | 2019-07-22 07:14 | NUR ---
Problems reprioritized. Patient report given, questions answered & plan of care reviewed with EVELYN. Addendum: 07/22/19 at 0714 by Gunner Schmidt RN Amended: Links added.
[2019-07-22 07:39] LABS: ANISOCYTOSIS 2+; LARGE PLATELETS FEW; PLATELET ESTIMATE NORMAL
[2019-07-22 07:40] LABS: POLYCHROMASIA FEW
[2019-07-22 07:50] VITALS: BP 163/103
[2019-07-22] MEDS: atorvastatin 20mg tablet PO SCH (08:00)
[2019-07-22] MEDS: hydrALAZINE 25 MG tablet PO SCH ×3 (08:00→17:32)
[2019-07-22] MEDS: metoclopramide 10mg tablet PO SCH ×3 (08:00→20:49)
[2019-07-22] MEDS: sevelamer carbonate 800mg tablet PO SCH ×3 (08:00→22:36)
[2019-07-22] MEDS: docusate sod 100mg capsule PO SCH ×2 (08:00→20:00)
[2019-07-22] MEDS: folic acid 0.4mg tablet PO SCH (08:00)
[2019-07-22] MEDS: SUCROFERRIC OXYHYDROXIDE PO SCH ×3 (08:00→21:00)
[2019-07-22] MEDS: folic acid 1mg tablet PO SCH (08:00)
[2019-07-22] MEDS: carVEDilol 12.5mg tablet PO SCH ×2 (08:50→20:48)
[2019-07-22] MEDS: furosemide 40mg tablet PO SCH ×3 (08:51→20:49)
[2019-07-22] MEDS: metolazone 2.5mg tablet PO SCH (08:52)
[2019-07-22] MEDS: pantoprazole 40mg Tablet.DR PO SCH (08:52)
[2019-07-22] MEDS: diltiazem CD 120mg capsule (once-daily) PO SCH (08:52)
[2019-07-22] MEDS: lisinopril 20mg tablet PO SCH (08:52)
[2019-07-22] MEDS: clindamycin 150mg capsule PO SCH ×3 (08:52→20:49)
[2019-07-22] MEDS: heparin, porcine 5000 units/ml vial SQ SCH ×2 (08:53→20:48)
[2019-07-22] MEDS: NUT.TX.IMP.RENAL FXN,LAC-REDUC (Nepro) 237 ML VANILLA PO SCH ×3 (08:56→17:32)
[2019-07-22] MEDS: insulin Lispro (HumaLOG) vial - multi-dose SQ SCH ×2 (10:06→14:10)
[2019-07-22 12:17] VITALS: BP 153/97
--- NOTE | 2019-07-22 12:24 | NUR ---
Dr. Perez informed of K 3.3, no replacement ordered. Also informed MD of left leg pain and left arm edema, MD ordered vascular ultrasound.
--- NOTE | 2019-07-22 12:29 | NUR ---
Patient in room [facility] 352. I have received report from Nain DEVINE and had the opportunity to ask questions and assume patient care. Addendum: 07/22/19 at 1231 by Sofie Dawson RN Above note is wrong time, received report at 3831.
[2019-07-22] MEDS: proCHLORperazine 10 MG/2 ml inj IV PRN (12:59)
--- NOTE | 2019-07-22 15:34 | NUR ---
Peter consult: Pt with peter of 11. Pt with diabetic ulcer on bilateral toes and BLE 2+ edema and LUE 2+ edema and cellulitis of left 2nd and 3rd toes. RD general internal medicine doctor visited pt at bedside to provide verbal and written high protein education and RD contact information. Pt complains of poor appetite with nausea and vomiting. Pt states he likes his eggs and any kinds of meat, d/w dietary. Pt encouraged to increase PO intake of trays and ONS. Pt currently eating 0-25% on renal carb controlled diet and 25% ONS. Pt currently on nepro, recommend switching to glucerna d/t pt with gastroparesis, d/w bedside RN. LBM 07/21. Will continue to monitor. Recommendations: 1. continue renal, carb controlled diet 2. glucerna TIDWM d/w bedside RN 3. bowel care as needed 4. weight per rx Addendum: 07/22/19 at 1534 by Wing Rhoda LANDIN Amended: Links added. Addendum: 07/22/19 at [address] URVASHI Augustin
--- NOTE | 2019-07-22 16:55 | NUR ---
Dr. Perez informed that pt is too heavy for MRI, therefore pt is unable to have MRI done. No new orders at this time.
[2019-07-22] MEDS: NORMAL SALINE IV SCH ×2 (18:00→20:48)
[2019-07-22] MEDS: NAFCILLIN IV SCH ×2 (18:00→20:48)
[2019-07-22] MEDS ORDERED: NORMAL SALINE IV SCH (18:00)
[2019-07-22] MEDS ORDERED: NAFCILLIN IV SCH (18:00)
--- NOTE | 2019-07-22 18:12 | NUR ---
Problems reprioritized. Patient report given, questions answered & plan of care reviewed with Nain DEVINE.
[2019-07-22 19:00] VITALS: BP 147/71
[2019-07-22] MEDS: gabapentin 300mg capsule PO SCH (20:49)
[2019-07-22] MEDS: insulin glargine (Lantus) pen - multi-dose SQ SCH (22:51)
[2019-07-23] MEDS: ondansetron/PF 4mg/2ml inj IV PRN ×3 (01:53→21:01)
[2019-07-23] MEDS: morphine 2 MG/ML inj. syringe IV PRN ×4 (04:04→21:02)
[2019-07-23 05:09] LABS: BASOPHILS # (AUTO) 0.1 X10'3 (0-0.2); BASOPHILS % (AUTO) 0.6 % (0-1); EOSINOPHILS # (AUTO) 0.2 X10'3 (0-0.9); EOSINOPHILS % (AUTO) 1.7 % (0-6); HEMATOCRIT 27.1 % (42.0-52.0); HEMOGLOBIN 8.5 g/dl (14.0-17.9); LYMPHOCYTES # (AUTO) 0.6 X10'3 (1.1-4.8); LYMPHOCYTES % (AUTO) 4.3 % (21-51); MEAN CORPUSCULAR HEMOGLOBIN 26.1 PG (27.0-31.0); MEAN CORPUSCULAR HGB CONC 31.5 g/dL (33.0-36.5); MEAN CORPUSCULAR VOLUME 82.8 FL (78-98); MONOCYTES # (AUTO) 1.3 X10'3 (0-0.9); MONOCYTES % (AUTO) 8.7 % (2-12); NEUTROPHILS # (AUTO) 12.5 X10'3 (1.8-7.7); NEUTROPHILS % (AUTO) 84.7 % (42-75); PLATELET COUNT 392 X10'3 (140-440); RED BLOOD COUNT 3.27 X10'6 (4.70-6.10); RED CELL DISTRIBUTION WIDTH 19.8 % (11.5-14.5); WHITE BLOOD COUNT 14.8 X10'3 (4.5-11.0)
[2019-07-23 05:17] LABS: ALANINE AMINOTRANSFERASE 61 U/L (12-78); ALBUMIN 0.9 G/DL (3.4-5.0); ALBUMIN/GLOBULIN RATIO 0.2 (1.1-1.5); ALKALINE PHOSPHATASE 64 IU/L (46-116); ANION GAP 16 (8-16); ASPARTATE AMINO TRANSFERASE 97 U/L (10-37); BILIRUBIN,TOTAL 1.1 MG/DL (0.1-1.0); BLOOD UREA NITROGEN 68 MG/DL (7-18); BUN/CREATININE RATIO 5.5 (5.4-32.0); CALCIUM 6.5 MG/DL (8.5-10.1); CHLORIDE 99 MMOL/L (99-107); CREATININE 12.35 MG/DL (0.60-1.10); GLUCOSE 348 MG/DL (70-104); MAGNESIUM 1.8 MG/DL (1.5-2.4); POTASSIUM 3.1 MMOL/L (3.5-5.1); SODIUM 140 MMOL/L (135-145); TOTAL CARBON DIOXIDE 25.5 MMOL/L (24-32); TOTAL PROTEIN 6.6 G/DL (6.4-8.2); eGFR 4 ML/MIN
[2019-07-23] MEDS ORDERED: LIDOcaine 2% 5ml jelly TOP ONE (06:00)
--- NOTE | 2019-07-23 06:00 | NUR ---
Problems reprioritized. Patient report given, questions answered & plan of care reviewed with EVELYN. Addendum: 07/23/19 at 0727 by Gunner Schmidt RN Amended: Links added.
[2019-07-23 06:17] LABS: ANISOCYTOSIS 2+; PLATELET ESTIMATE NORMAL
[2019-07-23 06:18] LABS: POLYCHROMASIA FEW; ROULEAUX 1+
--- NOTE | 2019-07-23 07:05 | NUR ---
Patient in room [facility] 352. I have received report from Nain DEVINE and had the opportunity to ask questions and assume patient care.
[2019-07-23 07:36] VITALS: BP 137/84
[2019-07-23] MEDS: SUCROFERRIC OXYHYDROXIDE PO SCH ×3 (08:00→21:45)
[2019-07-23] MEDS: NUT.TX.IMP.RENAL FXN,LAC-REDUC (Nepro) 237 ML VANILLA PO SCH ×3 (08:00→17:33)
[2019-07-23] MEDS: folic acid 0.4mg tablet PO SCH (08:00)
[2019-07-23] MEDS: docusate sod 100mg capsule PO SCH ×2 (08:00→20:00)
[2019-07-23] MEDS: sevelamer carbonate 800mg tablet PO SCH ×3 (08:00→21:45)
[2019-07-23] MEDS: heparin, porcine 5000 units/ml vial SQ SCH ×2 (08:41→21:58)
[2019-07-23] MEDS: furosemide 40mg tablet PO SCH ×3 (08:44→21:44)
[2019-07-23] MEDS: carVEDilol 12.5mg tablet PO SCH ×2 (08:48→21:58)
[2019-07-23] MEDS: pantoprazole 40mg Tablet.DR PO SCH (08:48)
[2019-07-23] MEDS: metolazone 2.5mg tablet PO SCH (08:48)
[2019-07-23] MEDS: diltiazem CD 120mg capsule (once-daily) PO SCH (08:49)
[2019-07-23] MEDS: metoclopramide 10mg tablet PO SCH ×3 (08:49→21:45)
[2019-07-23] MEDS: lisinopril 20mg tablet PO SCH (08:50)
[2019-07-23] MEDS: clindamycin 150mg capsule PO SCH ×3 (08:50→21:44)
[2019-07-23] MEDS: hydrALAZINE 25 MG tablet PO SCH ×3 (08:51→17:33)
[2019-07-23] MEDS: atorvastatin 20mg tablet PO SCH (08:52)
[2019-07-23] MEDS: folic acid 1mg tablet PO SCH (08:52)
[2019-07-23] MEDS: insulin Lispro (HumaLOG) vial - multi-dose SQ SCH ×2 (08:58→13:03)
[2019-07-23 11:33] VITALS: BP 155/67
[2019-07-23] MEDS ORDERED: potassium Cl 20 mEq SR tablet PO ONE (15:40)
[2019-07-23] MEDS: proCHLORperazine 10 MG/2 ml inj IV PRN (15:47)
--- NOTE | 2019-07-23 18:44 | NUR ---
Problems reprioritized. Patient report given, questions answered & plan of care reviewed with Nain DEVINE.
[2019-07-23 18:55] VITALS: BP 139/72
[2019-07-23] MEDS: lactobacillus rhamnosus 10,000 MMU CELLS/CAPSULE PO SCH (20:00)
[2019-07-23] MEDS: NAFCILLIN IV SCH (21:00)
[2019-07-23] MEDS: NORMAL SALINE IV SCH (21:00)
[2019-07-23] MEDS ORDERED: PERIT DIALYSIS IP PRN (21:22)
[2019-07-23] MEDS ORDERED: HEPARIN IP PRN (21:22)
[2019-07-23] MEDS ORDERED: DEXT IP PRN (21:22)
[2019-07-23] MEDS: gabapentin 300mg capsule PO SCH (21:44)
[2019-07-23] MEDS: insulin glargine (Lantus) pen - multi-dose SQ SCH ×2 (22:46→22:50)
[2019-07-24] MEDS: morphine 2 MG/ML inj. syringe IV PRN (01:43)
[2019-07-24] MEDS ORDERED: morphine 2 MG/ML inj. syringe IV PRN (04:15)
[2019-07-24 05:56] LABS: BASOPHILS # (AUTO) 0.1 X10'3 (0-0.2); BASOPHILS % (AUTO) 0.3 % (0-1); EOSINOPHILS # (AUTO) 0.2 X10'3 (0-0.9); EOSINOPHILS % (AUTO) 1.3 % (0-6); HEMATOCRIT 26.3 % (42.0-52.0); HEMOGLOBIN 8.2 g/dl (14.0-17.9); LYMPHOCYTES # (AUTO) 0.5 X10'3 (1.1-4.8); LYMPHOCYTES % (AUTO) 3.3 % (21-51); MEAN CORPUSCULAR HEMOGLOBIN 25.6 PG (27.0-31.0); MEAN CORPUSCULAR HGB CONC 31.1 g/dL (33.0-36.5); MEAN CORPUSCULAR VOLUME 82.2 FL (78-98); MEAN PLATELET VOLUME 9.4 FL (7.4-10.4); MONOCYTES # (AUTO) 1.4 X10'3 (0-0.9); MONOCYTES % (AUTO) 9.2 % (2-12); NEUTROPHILS # (AUTO) 12.8 X10'3 (1.8-7.7); NEUTROPHILS % (AUTO) 85.9 % (42-75); PLATELET COUNT 361 X10'3 (140-440); RED CELL DISTRIBUTION WIDTH 19.7 % (11.5-14.5); WHITE BLOOD COUNT 14.9 X10'3 (4.5-11.0)
[2019-07-24 06:53] LABS: ALANINE AMINOTRANSFERASE 59 U/L (12-78); ALBUMIN 0.8 G/DL (3.4-5.0); ALBUMIN/GLOBULIN RATIO 0.2 (1.1-1.5); ALKALINE PHOSPHATASE 59 IU/L (46-116); ANION GAP 16 (8-16); ASPARTATE AMINO TRANSFERASE 80 U/L (10-37); BILIRUBIN,TOTAL 1.2 MG/DL (0.1-1.0); BLOOD UREA NITROGEN 61 MG/DL (7-18); BUN/CREATININE RATIO 5.2 (5.4-32.0); CALCIUM 6.1 MG/DL (8.5-10.1); CHLORIDE 98 MMOL/L (99-107); GLUCOSE 384 MG/DL (70-104); MAGNESIUM 1.7 MG/DL (1.5-2.4); SODIUM 140 MMOL/L (135-145); TOTAL CARBON DIOXIDE 26.5 MMOL/L (24-32); TOTAL PROTEIN 5.9 G/DL (6.4-8.2); eGFR 5 ML/MIN
[2019-07-24 06:59] LABS: POTASSIUM 2.6 MMOL/L (3.5-5.1)
[2019-07-24 07:00] VITALS: BP 112/44
--- NOTE | 2019-07-24 07:06 | NUR ---
Problems reprioritized. Patient report given, questions answered & plan of care reviewed. Addendum: 07/24/19 at 0707 by Gunner Schmidt RN Amended: Links added.
--- NOTE | 2019-07-24 07:14 | NUR ---
Lab called with critical value for potassium 2.[address] Oliver and received orders for 20 MEQ potassium po Q 4 hours X 3.
[2019-07-24] MEDS: metoclopramide 10mg tablet PO SCH ×3 (07:27→20:58)
[2019-07-24] MEDS: ondansetron/PF 4mg/2ml inj IV PRN ×3 (07:27→23:29)
[2019-07-24] MEDS: pantoprazole 40mg Tablet.DR PO SCH (07:28)
[2019-07-24 07:41] LABS: PHOSPHORUS 9.8 MG/DL (2.3-4.5)
[2019-07-24] MEDS: docusate sod 100mg capsule PO SCH ×2 (08:00→19:27)
[2019-07-24] MEDS ORDERED: potassium chloride 10mEq ER tablet PO SCH (08:00)
[2019-07-24] MEDS: folic acid 0.4mg tablet PO SCH (08:00)
[2019-07-24] MEDS: SUCROFERRIC OXYHYDROXIDE PO SCH ×3 (08:00→23:34)
[2019-07-24] MEDS: NUT.TX.IMP.RENAL FXN,LAC-REDUC (Nepro) 237 ML VANILLA PO SCH ×3 (08:00→18:00)
[2019-07-24] MEDS: lisinopril 20mg tablet PO SCH (08:00)
[2019-07-24] MEDS: lactobacillus rhamnosus 10,000 MMU CELLS/CAPSULE PO SCH ×2 (08:01→23:32)
[2019-07-24] MEDS: potassium Cl 20 mEq SR tablet PO SCH ×4 (08:02→23:33)
[2019-07-24] MEDS: heparin, porcine 5000 units/ml vial SQ SCH ×2 (08:03→19:48)
[2019-07-24] MEDS: morphine 4 MG/ML inj SYRINge IV PRN ×3 (08:04→21:31)
[2019-07-24] MEDS: clindamycin 150mg capsule PO SCH ×3 (09:25→23:32)
[2019-07-24] MEDS: furosemide 40mg tablet PO SCH ×3 (09:26→19:42)
[2019-07-24] MEDS: atorvastatin 20mg tablet PO SCH (09:26)
[2019-07-24] MEDS: carVEDilol 12.5mg tablet PO SCH (09:26)
[2019-07-24] MEDS: folic acid 1mg tablet PO SCH (09:33)
[2019-07-24] MEDS: sevelamer carbonate 800mg tablet PO SCH ×3 (09:33→23:34)
--- NOTE | 2019-07-24 10:00 | NUR ---
Patient refused Insulin this morning stating he was afraid he would get too low since his BG has "been all over the place". His BG was 384. He did not eat anything for breakfast.
[2019-07-24 10:11] LABS: ANISOCYTOSIS 2+; PLATELET ESTIMATE NORMAL
[2019-07-24 10:12] LABS: HYPOCHROMASIA 1+; SCHISTOCYTES FEW
[2019-07-24] MEDS: metolazone 2.5mg tablet PO SCH (10:22)
[2019-07-24] MEDS: hydrALAZINE 25 MG tablet PO SCH ×3 (10:22→18:00)
[2019-07-24] MEDS: diltiazem CD 120mg capsule (once-daily) PO SCH ×2 (10:37→10:58)
[2019-07-24] MEDS: proCHLORperazine 10 MG/2 ml inj IV PRN ×2 (10:41→19:14)
--- NOTE | 2019-07-24 11:30 | NUR ---
Patient's 0800 medications were spaced apart per pt request due to nausea and vomiting when he has tried to take them all at once. He was also treated with Zofran prior to getting his medications. He still refused his Folic acid. He had one episode of dry heaves after last batch of pills and that is when he refused his folic acid.
[2019-07-24 12:36] VITALS: BP 164/66
--- NOTE | 2019-07-24 14:00 | NUR ---
Pt BG was 331 prior to lunch and he only ate a couple bites of a sandwich he agreed to getting insulin coverage though.
[2019-07-24] MEDS: insulin Lispro (HumaLOG) vial - multi-dose SQ SCH (14:08)
--- NOTE | 2019-07-24 18:30 | NUR ---
Problems reprioritized. Patient report given, questions answered & plan of care reviewed with Meeta DEVINE.
[2019-07-24 20:00] VITALS: BP 125/83
[2019-07-24] MEDS: gabapentin 300mg capsule PO SCH (20:58)
[2019-07-24] MEDS: insulin glargine (Lantus) pen - multi-dose SQ SCH (21:00)
[2019-07-24] MEDS: NORMAL SALINE IV SCH (21:26)
[2019-07-24] MEDS: NAFCILLIN IV SCH (21:26)
--- NOTE | 2019-07-24 21:40 | NUR ---
Patient's blood sugar tonight 107. Patient refused his lantus tonight.
[2019-07-25] VITALS: BP 108/54
--- NOTE | 2019-07-25 00:20 | NUR ---
Nurse was able to find a bed with and control electrician.
[2019-07-25] MEDS: carVEDilol 12.5mg tablet PO SCH ×2 (00:29→08:00)
[2019-07-25] MEDS: gabapentin 300mg capsule PO SCH ×2 (00:29→21:24)
--- NOTE | 2019-07-25 00:30 | NUR ---
Tonight patient only took some of his night medications. Patient states he will only take what is really important tonight because whenever he takes anything PO he becomes very nauseated. Patient refused his coreg, gabapentin, probiotic,velphoro and renvela. Nurse attempted numerous amount of time after patient is medicated with nausea medication, patient would say he would take them then refused.
[2019-07-25] MEDS: proCHLORperazine 10 MG/2 ml inj IV PRN ×3 (02:35→20:17)
[2019-07-25] MEDS: morphine 4 MG/ML inj SYRINge IV PRN ×4 (02:36→20:17)
[2019-07-25] MEDS: ondansetron/PF 4mg/2ml inj IV PRN ×2 (05:32→15:47)
[2019-07-25 06:00] LABS: BASOPHILS # (AUTO) 0.1 X10'3 (0-0.2); BASOPHILS % (AUTO) 1.1 % (0-1); EOSINOPHILS # (AUTO) 0.3 X10'3 (0-0.9); EOSINOPHILS % (AUTO) 2.5 % (0-6); HEMATOCRIT 26.9 % (42.0-52.0); HEMOGLOBIN 8.4 g/dl (14.0-17.9); LYMPHOCYTES # (AUTO) 0.6 X10'3 (1.1-4.8); LYMPHOCYTES % (AUTO) 4.4 % (21-51); MEAN CORPUSCULAR HEMOGLOBIN 25.7 PG (27.0-31.0); MEAN CORPUSCULAR HGB CONC 31.3 g/dL (33.0-36.5); MEAN CORPUSCULAR VOLUME 82.3 FL (78-98); MONOCYTES # (AUTO) 1.3 X10'3 (0-0.9); MONOCYTES % (AUTO) 9.6 % (2-12); NEUTROPHILS # (AUTO) 11.2 X10'3 (1.8-7.7); NEUTROPHILS % (AUTO) 82.4 % (42-75); PLATELET COUNT 364 X10'3 (140-440); RED BLOOD COUNT 3.27 X10'6 (4.70-6.10); RED CELL DISTRIBUTION WIDTH 19.4 % (11.5-14.5); WHITE BLOOD COUNT 13.5 X10'3 (4.5-11.0)
[2019-07-25 06:19] LABS: ALANINE AMINOTRANSFERASE 65 U/L (12-78); ALBUMIN 0.9 G/DL (3.4-5.0); ALBUMIN/GLOBULIN RATIO 0.2 (1.1-1.5); ALKALINE PHOSPHATASE 63 IU/L (46-116); ANION GAP 15 (8-16); ASPARTATE AMINO TRANSFERASE 78 U/L (10-37); BILIRUBIN,TOTAL 1.1 MG/DL (0.1-1.0); BLOOD UREA NITROGEN 56 MG/DL (7-18); CHLORIDE 98 MMOL/L (99-107); GLUCOSE 304 MG/DL (70-104); MAGNESIUM 1.7 MG/DL (1.5-2.4); POTASSIUM 3.3 MMOL/L (3.5-5.1); SODIUM 140 MMOL/L (135-145); TOTAL PROTEIN 6.4 G/DL (6.4-8.2); eGFR 5 ML/MIN
[2019-07-25 06:20] LABS: PHOSPHORUS 9.4 MG/DL (2.3-4.5)
[2019-07-25 06:23] LABS: CALCIUM 5.8 MG/DL (8.5-10.1)
[2019-07-25 07:00] VITALS: BP 109/66
--- NOTE | 2019-07-25 07:03 | NUR ---
Patient in room [facility] 352. I have received report from RABIA DEVINE and had the opportunity to ask questions and assume patient care.
[2019-07-25] MEDS: lisinopril 20mg tablet PO SCH (08:00)
[2019-07-25] MEDS: NUT.TX.IMP.RENAL FXN,LAC-REDUC (Nepro) 237 ML VANILLA PO SCH ×3 (08:00→18:08)
[2019-07-25] MEDS: SUCROFERRIC OXYHYDROXIDE PO SCH ×2 (08:00→13:00)
[2019-07-25] MEDS: lactobacillus rhamnosus 10,000 MMU CELLS/CAPSULE PO SCH (08:00)
[2019-07-25] MEDS: sevelamer carbonate 800mg tablet PO SCH ×2 (08:00→14:05)
[2019-07-25] MEDS: hydrALAZINE 25 MG tablet PO SCH ×3 (08:00→18:00)
[2019-07-25] MEDS: docusate sod 100mg capsule PO SCH ×2 (08:00→21:18)
[2019-07-25 08:03] LABS: ANISOCYTOSIS 2+; HYPOCHROMASIA 1+; PLATELET ESTIMATE NORMAL
[2019-07-25] MEDS: pantoprazole 40mg Tablet.DR PO SCH (08:46)
[2019-07-25] MEDS: atorvastatin 20mg tablet PO SCH (08:46)
[2019-07-25] MEDS: potassium Cl 20 mEq SR tablet PO SCH ×3 (08:46→21:00)
[2019-07-25] MEDS: metoclopramide 10mg tablet PO SCH ×3 (08:46→21:22)
[2019-07-25] MEDS: clindamycin 150mg capsule PO SCH ×3 (08:47→20:17)
[2019-07-25] MEDS: furosemide 40mg tablet PO SCH (08:47)
[2019-07-25] MEDS: folic acid 1mg tablet PO SCH (08:50)
[2019-07-25] MEDS: metolazone 2.5mg tablet PO SCH (08:57)
[2019-07-25] MEDS: folic acid 0.4mg tablet PO SCH (08:58)
[2019-07-25] MEDS: heparin, porcine 5000 units/ml vial SQ SCH ×2 (09:00→20:00)
[2019-07-25] MEDS: insulin Lispro (HumaLOG) vial - multi-dose SQ SCH ×2 (09:13→13:59)
[2019-07-25] MEDS ORDERED: albumin (human) 25% 100 ML IV solution IV ONE (16:20)
--- NOTE | 2019-07-25 16:52 | NUR ---
reassessment: Patient with very poor PO intake, very poor appetite, c/o nausea, vomiting contributing to poor intake. Patient receiving reglan for gastroparesis. Noted that phosphorus elevated on admission at 12.1. Met with patient and his at bedside. Pt not feeling well, not interested in involvement in education and conversation and when asked about protein intake for dinner replied "I don't care." Pt's reports about a week prior to admission he was not eating well therefore not taking Renvela, did have c/o itchy skin possibly r/t elevated phosphorus lab. Discussed low albumin and pending surgery tomorrow for toe amputation and the need for increased protein intake. Pt also receiving zofran for nausea. Encouraged patient to try drinking the Nepro drinks for nutrition and protein, reports that he does not like the vanilla flavor, will trial tucker Nepro Kimengiight, d/w dietary. Encouraged intake and compliance with prescribed medications. Will continue to follow. Recommendations: 1. continue renal, carb controlled diet, encouraged PO 2. glucerna TIDWM, encourage intake 3. bowel care as needed 4. weight per rx Addendum: 07/25/19 at [address] Amended: Links added.
[2019-07-25 17:52] VITALS: BP 115/55
--- NOTE | 2019-07-25 18:36 | NUR ---
Challenging time with patient. patient very rude to staff and to spouse. Time spent talking with patient with some effect. patient picking and choosing meds to take ,out of emar list . C/O nausea and vomited x2. Compazine and zofran given as per EMAR. Pain relief x2. patient seen by DR Cosme and Dr Jeff. Is for possible surgery in am. NPO after midnight. Consent in chart. patient appears very agitated wanting to leave. Time spent with patient explaining benefits of staying for surgery. Family supportive. Report given to Meeta DEVINE
[2019-07-25 20:00] VITALS: BP 121/58
[2019-07-25] MEDS: insulin glargine (Lantus) pen - multi-dose SQ SCH (21:00)
[2019-07-25] MEDS: NORMAL SALINE IV SCH (23:38)
[2019-07-25] MEDS: NAFCILLIN IV SCH (23:38)
[2019-07-26] VITALS (22 sets, daily range): BP systolic 112–178; BP diastolic 44–91
--- NOTE | 2019-07-26 00:10 | NUR ---
Bed bath given to patient. Patient prepped for sugery tomorrow. States understanding of NPO.
[2019-07-26] MEDS: morphine 4 MG/ML inj SYRINge IV PRN ×2 (00:21→04:49)
[2019-07-26] MEDS: carVEDilol 12.5mg tablet PO SCH ×2 (00:43→13:46)
[2019-07-26] MEDS: lactobacillus rhamnosus 10,000 MMU CELLS/CAPSULE PO SCH ×2 (00:43→08:00)
[2019-07-26] MEDS: SUCROFERRIC OXYHYDROXIDE PO SCH ×3 (00:44→13:00)
[2019-07-26] MEDS: furosemide 40mg tablet PO SCH ×2 (00:44→08:00)
[2019-07-26] MEDS: sevelamer carbonate 800mg tablet PO SCH ×3 (00:44→13:00)
[2019-07-26] MEDS: clindamycin 150mg capsule PO SCH ×3 (00:44→13:46)
--- NOTE | 2019-07-26 00:47 | NUR ---
Tonight patient attempted taking only some of his night medications and was able to hold down some down. Others he puked up or refused to even attempt them. Continue with Zofran and Compazine Q6hr around the clock for nausea/vomiting related to his gastroparesis that he has had for 15years. said this is normal he will have periods of it like this, nothing new.
[2019-07-26] MEDS: proCHLORperazine 10 MG/2 ml inj IV PRN (04:49)
[2019-07-26 05:07] LABS: BASOPHILS # (AUTO) 0.1 X10'3 (0-0.2); EOSINOPHILS # (AUTO) 0.4 X10'3 (0-0.9); EOSINOPHILS % (AUTO) 3.2 % (0-6); HEMATOCRIT 25.7 % (42.0-52.0); HEMOGLOBIN 8.1 g/dl (14.0-17.9); LYMPHOCYTES # (AUTO) 0.6 X10'3 (1.1-4.8); LYMPHOCYTES % (AUTO) 4.7 % (21-51); MEAN CORPUSCULAR HEMOGLOBIN 25.8 PG (27.0-31.0); MEAN CORPUSCULAR HGB CONC 31.4 g/dL (33.0-36.5); MEAN PLATELET VOLUME 9.1 FL (7.4-10.4); MONOCYTES # (AUTO) 1.4 X10'3 (0-0.9); MONOCYTES % (AUTO) 10.8 % (2-12); NEUTROPHILS # (AUTO) 10.4 X10'3 (1.8-7.7); NEUTROPHILS % (AUTO) 80.3 % (42-75); PLATELET COUNT 381 X10'3 (140-440); RED BLOOD COUNT 3.14 X10'6 (4.70-6.10); RED CELL DISTRIBUTION WIDTH 19.5 % (11.5-14.5)
[2019-07-26 05:46] LABS: ALANINE AMINOTRANSFERASE 67 U/L (12-78); ALBUMIN 1.1 G/DL (3.4-5.0); ALBUMIN/GLOBULIN RATIO 0.2 (1.1-1.5); ALKALINE PHOSPHATASE 64 IU/L (46-116); ANION GAP 14 (8-16); ASPARTATE AMINO TRANSFERASE 69 U/L (10-37); BILIRUBIN,TOTAL 1.1 MG/DL (0.1-1.0); BLOOD UREA NITROGEN 53 MG/DL (7-18); BUN/CREATININE RATIO 4.8 (5.4-32.0); CHLORIDE 99 MMOL/L (99-107); CREATININE 11.15 MG/DL (0.60-1.10); GLUCOSE 330 MG/DL (70-104); MAGNESIUM 1.8 MG/DL (1.5-2.4); PHOSPHORUS 8.8 MG/DL (2.3-4.5); POTASSIUM 3.2 MMOL/L (3.5-5.1); SODIUM 141 MMOL/L (135-145); TOTAL CARBON DIOXIDE 28.5 MMOL/L (24-32); TOTAL PROTEIN 6.7 G/DL (6.4-8.2); eGFR 5 ML/MIN
[2019-07-26 06:23] LABS: PARTIAL THROMBOPLASTIN TIME 34 SECONDS (22-32)
--- NOTE | 2019-07-26 07:05 | NUR ---
Patient in room [facility] 352. I have received report from Meeta DEVINE and had the opportunity to ask questions and assume patient care.
[2019-07-26 07:11] LABS: HYPOCHROMASIA 1+; PLATELET ESTIMATE NORMAL; POLYCHROMASIA 1+
[2019-07-26 07:12] LABS: ANISOCYTOSIS 2+; ROULEAUX 1+
--- NOTE | 2019-07-26 07:21 | NUR ---
called Dr Jasso to inform about pt's low K 3.2, Ca 6.0L, Phos 8.8H, and if he requires any meds been given before surgery. Dr jasso said to HOLD all meds until after surgery and do not replace Electrolytes. Dr Jasso ask to wait for DR Perez to put orders in for phos & calcium replacement.
[2019-07-26] MEDS: folic acid 1mg tablet PO SCH (08:00)
[2019-07-26] MEDS: atorvastatin 20mg tablet PO SCH (08:00)
[2019-07-26] MEDS: heparin, porcine 5000 units/ml vial SQ SCH (08:00)
[2019-07-26] MEDS: metolazone 2.5mg tablet PO SCH (08:00)
[2019-07-26] MEDS: pantoprazole 40mg Tablet.DR PO SCH (08:00)
[2019-07-26] MEDS: NUT.TX.IMP.RENAL FXN,LAC-REDUC (Nepro) 237 ML VANILLA PO SCH ×2 (08:00→13:00)
[2019-07-26] MEDS: docusate sod 100mg capsule PO SCH (08:00)
[2019-07-26] MEDS: folic acid 0.4mg tablet PO SCH (08:00)
[2019-07-26] MEDS: lisinopril 20mg tablet PO SCH (08:00)
[2019-07-26] MEDS: diltiazem CD 120mg capsule (once-daily) PO SCH (08:00)
--- NOTE | 2019-07-26 09:15 | NUR ---
pt going to surgery with Dr. Jeff, I & D and 2nd left toe amputation.
[2019-07-26] MEDS ORDERED: meperidine/PF 25mg/ml syringe IV PRN ×3 (09:30)
[2019-07-26] MEDS ORDERED: ondansetron/PF 4mg/2ml inj IV PRN (09:30)
[2019-07-26] MEDS ORDERED: proCHLORperazine 10 MG/2 ml inj IV PRN (09:30)
[2019-07-26] MEDS ORDERED: ringers solution, lacted 1,000 ML IV SCH (09:30)
[2019-07-26] MEDS ORDERED: morphine 4 MG/ML inj SYRINge IV PRN ×2 (09:30)
[2019-07-26] MEDS ORDERED: sevoflurane 250ml liquid IH ONE (09:48)
[2019-07-26] MEDS ORDERED: propofol inj 20 ML IV ONE (09:56)
[2019-07-26] MEDS ORDERED: fentaNYL/PF 50MCG/1 ML 2ML syringe ONE (09:56)
[2019-07-26] MEDS ORDERED: povidone-iodine 10% topical ointment 28.4gm TP ONE (10:53)
--- NOTE | 2019-07-26 11:22 | NUR ---
Received from OR via BED, accompanied by Anesthesiologist DR ARIZMENDI and report given by Anesthesiologist. PT VERY DROWSY, NO S/S OF DISTRESS/DISCOMFORT, PT W/BRADYPNEA, SHALLOW BREATHING, SAO2 100%, WILL BREATHE W/STIMULUS, DR ARIZMENDI CALLED AND CAME IN TO ASSESS PT, PT MORE RESPONSIVE AND BREATHING RATE INCREASED. Addendum: 07/26/19 at 1220 by Ene Bailey RN Amended: Links added.
[2019-07-26] MEDS: metoclopramide 10mg tablet PO SCH ×2 (13:00→13:47)
[2019-07-26] MEDS: hydrALAZINE 25 MG tablet PO SCH ×3 (13:00→18:00)
[2019-07-26] MEDS: potassium Cl 20 mEq SR tablet PO SCH ×2 (13:00→13:47)
--- NOTE | 2019-07-26 13:12 | NUR ---
Report called to receiving nurse. Transferred via BED, NO Belongings, BLL, CALL LIGHT GIVEN TO PT, SIDE RAILS UP X 2, AT BEDSIDE, RECEIVING RN NOTIFIED OF PTS ARRIVAL. Special Issues communicated to receiving nurse. YES. Addendum: 07/26/19 at 1323 by Ene Bailey RN Amended: Links added.
--- NOTE | 2019-07-26 13:35 | NUR ---
Pt back from surgery, A & O, a bit sleepy, pt's and parents by his side. Vitals stable and pedal/popliteal pulses palpable. Will wait until pt is more awake to give meds. Pt nauseated and only wants meds for HTN. agrees. He is too nauseated.
[2019-07-26] MEDS: ondansetron/PF 4mg/2ml inj IV PRN (15:39)
--- NOTE | 2019-07-26 18:45 | NUR ---
Pt DC to home with . Pt and verbalized understanding of all discharge orders. Pt understands to follow up with PCP as well as Dr. Jeff in 10 days. Pt's packed and carried out all personal belongings as well as Pt's home meds stored in pharmacy. Pt wheeled out and picked up at front by to drive him home. Pt A & O, in no apparent distress. Pt wanted to go home so he did not have to do his peritoneal dialysis here. He verbalized that he only does 1/2 of the dialysis and that's the way he wants to do it. Messaged noted to and Dialysis nurse.
== END 2019-07-26 19:26 | disposition home health service (06) | DRG 853 ==
LOC: ER 14:09 → ED HOLD 17:50 → EDBEDREQ 17:52 → SUR 3N 20:15
PROVIDERS: ATTEND Internal Medicine Critical Care Medicine
PROC: 3E1M39Z Irrigation of Peritoneal Cavity using Dialysate, Percutaneous Approach (ICD-10-PCS; 2019-07-22)
PROC: 3E1M39Z Irrigation of Peritoneal Cavity using Dialysate, Percutaneous Approach (ICD-10-PCS; 2019-07-23)
PROC: 3E1M39Z Irrigation of Peritoneal Cavity using Dialysate, Percutaneous Approach (ICD-10-PCS; principal; 2019-07-24)
PROC: 3E1M39Z Irrigation of Peritoneal Cavity using Dialysate, Percutaneous Approach (ICD-10-PCS; 2019-07-25)
PROC: 0Y6R0Z0 Detachment at Right 2nd Toe, Complete, Open Approach (ICD-10-PCS; 2019-07-26)
PROC: 0JBR0ZZ Excision of Left Foot Subcutaneous Tissue and Fascia, Open Approach (ICD-10-PCS; 2019-07-26)
PROC: 0JBQ0ZZ Excision of Right Foot Subcutaneous Tissue and Fascia, Open Approach (ICD-10-PCS; 2019-07-26)
DX: A41.9 Sepsis, unspecified organism (principal); N18.6 End stage renal disease; I50.30 Unspecified diastolic (congestive) heart failure; I13.2 Hypertensive heart and chronic kidney disease with heart failure and with stage 5 chronic kidney disease, or end stage renal disease; Z68.41 Body mass index [BMI] 40.0-44.9, adult; M86.171 Other acute osteomyelitis, right ankle and foot; N17.9 Acute kidney failure, unspecified; E11.52 Type 2 diabetes mellitus with diabetic peripheral angiopathy with gangrene; E11.69 Type 2 diabetes mellitus with other specified complication; E66.01 Morbid (severe) obesity due to excess calories; L97.519 Non-pressure chronic ulcer of other part of right foot with unspecified severity; E11.43 Type 2 diabetes mellitus with diabetic autonomic (poly)neuropathy; E87.6 Hypokalemia; K31.84 Gastroparesis; A49.01 Methicillin susceptible Staphylococcus aureus infection, unspecified site; E11.621 Type 2 diabetes mellitus with foot ulcer; E11.21 Type 2 diabetes mellitus with diabetic nephropathy; L97.529 Non-pressure chronic ulcer of other part of left foot with unspecified severity; E11.22 Type 2 diabetes mellitus with diabetic chronic kidney disease; Z99.2 Dependence on renal dialysis; Z91.15 Patient's noncompliance with renal dialysis; Z88.2 Allergy status to sulfonamides; Z90.49 Acquired absence of other specified parts of digestive tract; Z79.4 Long term (current) use of insulin; Z79.899 Other long term (current) drug therapy
CPT/HCPCS: 96374; 99285; Z7506; Z7508; 36415; 71045; 73700; 80053; 82948; 83036; 83605; 83735; 84100; 84132; 84145; 84443; 84550; 85025; 85610; 85730; 87040; 87081; 90935; 93005; 93971; 97162; 97530; A4618; A6196; A6222; A6266; A6446; A6449; A7000; E1594; G0378; J0780; J1644; J1815; J2270; J2405; J2704; J2997; J3010; J3370; J7050; J8597; P9047

== ENCOUNTER 2019-07-29 08:15 | Outpatient (CLI) | payer BC ==
[~2019-07-29 08:15] MED LIST changes: -CLE150C PO; +CLIN300C19 PO; +FOLI0.4T14 PO; -FOLI1CAP PO; -FOLI1TAB16 PO; +GABA-532 PO; -GABA600T13 PO; +NEPHC PO; +PANT-47 PO; +SEVE800T7 PO; -SEVE800T8 PO; +SUCR500T PO; +ZAR5T PO
[2019-07-29] MEDS ORDERED: LIDOcaine 2% 5ml jelly ONE (09:35)
== END 2019-07-29 10:54 | disposition home or self-care (01) ==
LOC: WOUND CARE 08:15
PROVIDERS: ATTEND Surgery
DX: T81.89XA Other complications of procedures, not elsewhere classified, initial encounter (principal); E11.621 Type 2 diabetes mellitus with foot ulcer; L97.512 Non-pressure chronic ulcer of other part of right foot with fat layer exposed; L97.522 Non-pressure chronic ulcer of other part of left foot with fat layer exposed; E11.43 Type 2 diabetes mellitus with diabetic autonomic (poly)neuropathy; E11.10 Type 2 diabetes mellitus with ketoacidosis without coma; E11.65 Type 2 diabetes mellitus with hyperglycemia; E11.21 Type 2 diabetes mellitus with diabetic nephropathy; E11.52 Type 2 diabetes mellitus with diabetic peripheral angiopathy with gangrene; E11.69 Type 2 diabetes mellitus with other specified complication; M86.8X7 Other osteomyelitis, ankle and foot; I13.2 Hypertensive heart and chronic kidney disease with heart failure and with stage 5 chronic kidney disease, or end stage renal disease; E11.22 Type 2 diabetes mellitus with diabetic chronic kidney disease; I50.30 Unspecified diastolic (congestive) heart failure; N18.6 End stage renal disease; E78.5 Hyperlipidemia, unspecified; E66.01 Morbid (severe) obesity due to excess calories; F12.90 Cannabis use, unspecified, uncomplicated; F41.1 Generalized anxiety disorder; Z79.4 Long term (current) use of insulin; Z90.49 Acquired absence of other specified parts of digestive tract; Z99.2 Dependence on renal dialysis; Z87.891 Personal history of nicotine dependence; Z79.899 Other long term (current) drug therapy; Z86.14 Personal history of Methicillin resistant Staphylococcus aureus infection; Z79.2 Long term (current) use of antibiotics; Z68.41 Body mass index [BMI] 40.0-44.9, adult; Y92.89 Other specified places as the place of occurrence of the external cause; Y83.8 Other surgical procedures as the cause of abnormal reaction of the patient, or of later complication, without mention of misadventure at the time of the procedure
CPT/HCPCS: 36416; 82948; A6266; G0463; A4663; A6021; A6154; A6446

== ENCOUNTER 2019-08-02 23:37 | Emergency (ER) | payer BC ==
[~2019-08-02] VITALS: Ht 182.9 cm; Wt 127.3 kg
[2019-08-02 23:38] VITALS: BP 189/79
[2019-08-03 00:31] LABS: BASOPHILS # (AUTO) 0.1 X10'3 (0-0.2); BASOPHILS % (AUTO) 0.8 % (0-1); EOSINOPHILS # (AUTO) 0.2 X10'3 (0-0.9); EOSINOPHILS % (AUTO) 1.5 % (0-6); HEMOGLOBIN 9.3 g/dl (14.0-17.9); LYMPHOCYTES # (AUTO) 1.1 X10'3 (1.1-4.8); LYMPHOCYTES % (AUTO) 6.4 % (21-51); MEAN CORPUSCULAR HEMOGLOBIN 25.1 PG (27.0-31.0); MEAN CORPUSCULAR VOLUME 78.5 FL (78-98); MEAN PLATELET VOLUME 9.3 FL (7.4-10.4); MONOCYTES # (AUTO) 1.5 X10'3 (0-0.9); MONOCYTES % (AUTO) 8.8 % (2-12); NEUTROPHILS # (AUTO) 13.7 X10'3 (1.8-7.7); NEUTROPHILS % (AUTO) 82.5 % (42-75); PLATELET COUNT 406 X10'3 (140-440); RED BLOOD COUNT 3.69 X10'6 (4.70-6.10); RED CELL DISTRIBUTION WIDTH 18.9 % (11.5-14.5); WHITE BLOOD COUNT 16.6 X10'3 (4.5-11.0)
[2019-08-03 00:38] LABS: PARTIAL THROMBOPLASTIN TIME 32 SECONDS (22-32)
[2019-08-03 00:41] LABS: ALANINE AMINOTRANSFERASE 16 U/L (12-78); ALBUMIN 0.9 G/DL (3.4-5.0); ALBUMIN/GLOBULIN RATIO 0.1 (1.1-1.5); ALKALINE PHOSPHATASE 78 IU/L (46-116); ANION GAP 12 (8-16); ASPARTATE AMINO TRANSFERASE 19 U/L (10-37); BILIRUBIN,TOTAL 1.4 MG/DL (0.1-1.0); BLOOD UREA NITROGEN 66 MG/DL (7-18); BUN/CREATININE RATIO 5.1 (5.4-32.0); CHLORIDE 97 MMOL/L (99-107); CREATININE 13.02 MG/DL (0.60-1.10); GLUCOSE 140 MG/DL (70-104); SODIUM 141 MMOL/L (135-145); TOTAL CARBON DIOXIDE 31.9 MMOL/L (24-32); TOTAL PROTEIN 7.8 G/DL (6.4-8.2); eGFR 4 ML/MIN
[2019-08-03 00:46] LABS: POTASSIUM 2.7 MMOL/L (3.5-5.1)
[2019-08-03] MEDS ORDERED: calcium carbonate 500mg tablet PO SCH (00:55)
[2019-08-03] MEDS ORDERED: potassium Cl 20 mEq SR tablet PO ONE (00:55)
[2019-08-03 02:57] LABS: ANISOCYTOSIS 2+; MICROCYTOSIS 1+; PLATELET ESTIMATE NORMAL
== END 2019-08-03 01:09 | disposition home or self-care (01) ==
LOC: ER 23:38
DX: I12.0 Hypertensive chronic kidney disease with stage 5 chronic kidney disease or end stage renal disease (principal); E11.22 Type 2 diabetes mellitus with diabetic chronic kidney disease; N18.6 End stage renal disease; E83.51 Hypocalcemia; E87.6 Hypokalemia; Z99.2 Dependence on renal dialysis; Z86.2 Personal history of diseases of the blood and blood-forming organs and certain disorders involving the immune mechanism; Z88.2 Allergy status to sulfonamides; Z90.49 Acquired absence of other specified parts of digestive tract; Z79.899 Other long term (current) drug therapy
CPT/HCPCS: 36415; 71045; 80053; 83735; 85025; 85610; 85730; 86885; 86900; 86901; 86920; 99284

== ENCOUNTER 2019-08-05 10:59 | Day surgery (SDC) | payer BC ==
[2019-08-05] MEDS ORDERED: LIDOcaine 2% 5ml jelly ONE (11:35)
== END 2019-08-05 12:42 | disposition home or self-care (01) ==
LOC: WOUND CARE 10:59
PROVIDERS: ATTEND Surgery
DX: T81.89XD Other complications of procedures, not elsewhere classified, subsequent encounter (principal); E11.621 Type 2 diabetes mellitus with foot ulcer; L97.512 Non-pressure chronic ulcer of other part of right foot with fat layer exposed; L97.522 Non-pressure chronic ulcer of other part of left foot with fat layer exposed; E11.43 Type 2 diabetes mellitus with diabetic autonomic (poly)neuropathy; E11.10 Type 2 diabetes mellitus with ketoacidosis without coma; E11.65 Type 2 diabetes mellitus with hyperglycemia; E11.21 Type 2 diabetes mellitus with diabetic nephropathy; E11.52 Type 2 diabetes mellitus with diabetic peripheral angiopathy with gangrene; E11.69 Type 2 diabetes mellitus with other specified complication; M86.8X7 Other osteomyelitis, ankle and foot; I13.2 Hypertensive heart and chronic kidney disease with heart failure and with stage 5 chronic kidney disease, or end stage renal disease; E11.22 Type 2 diabetes mellitus with diabetic chronic kidney disease; I50.30 Unspecified diastolic (congestive) heart failure; N18.6 End stage renal disease; E78.5 Hyperlipidemia, unspecified; E66.01 Morbid (severe) obesity due to excess calories; F12.90 Cannabis use, unspecified, uncomplicated; F41.1 Generalized anxiety disorder; Z79.4 Long term (current) use of insulin; Z90.49 Acquired absence of other specified parts of digestive tract; Z99.2 Dependence on renal dialysis; Z87.891 Personal history of nicotine dependence; Z79.899 Other long term (current) drug therapy; Z86.14 Personal history of Methicillin resistant Staphylococcus aureus infection; Z79.2 Long term (current) use of antibiotics; Z68.41 Body mass index [BMI] 40.0-44.9, adult; Y83.8 Other surgical procedures as the cause of abnormal reaction of the patient, or of later complication, without mention of misadventure at the time of the procedure
CPT/HCPCS: 36416; 82948; 97597; 97598

== ENCOUNTER 2019-08-12 08:25 | Outpatient (CLI) | payer BC | END 2019-08-12 10:51 | disposition home or self-care (01) | LOC: WOUND CARE 08:25 → EDSTATUS 08:30 → WOUND CARE 10:51 | PROVIDERS: ATTEND Surgery | DX: T81.89XD Other complications of procedures, not elsewhere classified, subsequent encounter (principal); E11.621 Type 2 diabetes mellitus with foot ulcer; L97.512 Non-pressure chronic ulcer of other part of right foot with fat layer exposed; L97.522 Non-pressure chronic ulcer of other part of left foot with fat layer exposed; E11.43 Type 2 diabetes mellitus with diabetic autonomic (poly)neuropathy; E11.10 Type 2 diabetes mellitus with ketoacidosis without coma; E11.65 Type 2 diabetes mellitus with hyperglycemia; E11.21 Type 2 diabetes mellitus with diabetic nephropathy; E11.52 Type 2 diabetes mellitus with diabetic peripheral angiopathy with gangrene; E11.69 Type 2 diabetes mellitus with other specified complication; M86.8X7 Other osteomyelitis, ankle and foot; I13.2 Hypertensive heart and chronic kidney disease with heart failure and with stage 5 chronic kidney disease, or end stage renal disease; E11.22 Type 2 diabetes mellitus with diabetic chronic kidney disease; I50.30 Unspecified diastolic (congestive) heart failure; N18.6 End stage renal disease; E78.5 Hyperlipidemia, unspecified; E66.01 Morbid (severe) obesity due to excess calories; F12.90 Cannabis use, unspecified, uncomplicated; F41.1 Generalized anxiety disorder; Z79.4 Long term (current) use of insulin; Z90.49 Acquired absence of other specified parts of digestive tract; Z99.2 Dependence on renal dialysis; Z87.891 Personal history of nicotine dependence; Z79.899 Other long term (current) drug therapy; Z86.14 Personal history of Methicillin resistant Staphylococcus aureus infection; Z79.2 Long term (current) use of antibiotics; Z68.41 Body mass index [BMI] 40.0-44.9, adult; Y83.8 Other surgical procedures as the cause of abnormal reaction of the patient, or of later complication, without mention of misadventure at the time of the procedure | CPT/HCPCS: 36416; 82948; G0463 ==

== ENCOUNTER 2019-08-14 05:02 | Emergency (ER) | payer BC ==
[~2019-08-14] VITALS: Ht 182.9 cm; Wt 125.0 kg
[2019-08-14 05:36] LABS: BASOPHILS # (AUTO) 0.2 X10'3 (0-0.2); BASOPHILS % (AUTO) 1.2 % (0-1); EOSINOPHILS # (AUTO) 0.3 X10'3 (0-0.9); EOSINOPHILS % (AUTO) 2.2 % (0-6); HEMATOCRIT 25.3 % (42.0-52.0); LYMPHOCYTES # (AUTO) 1.3 X10'3 (1.1-4.8); LYMPHOCYTES % (AUTO) 8.4 % (21-51); MEAN CORPUSCULAR HEMOGLOBIN 24.5 PG (27.0-31.0); MEAN CORPUSCULAR HGB CONC 31.6 g/dL (33.0-36.5); MEAN CORPUSCULAR VOLUME 77.4 FL (78-98); MEAN PLATELET VOLUME 9.2 FL (7.4-10.4); MONOCYTES # (AUTO) 1.1 X10'3 (0-0.9); MONOCYTES % (AUTO) 6.9 % (2-12); NEUTROPHILS # (AUTO) 12.5 X10'3 (1.8-7.7); NEUTROPHILS % (AUTO) 81.3 % (42-75); PLATELET COUNT 428 X10'3 (140-440); RED BLOOD COUNT 3.27 X10'6 (4.70-6.10); RED CELL DISTRIBUTION WIDTH 18.8 % (11.5-14.5); WHITE BLOOD COUNT 15.4 X10'3 (4.5-11.0)
--- NOTE | 2019-08-14 05:37 | NUR ---
NOTIFIED DR BRICE OF NEW CURRENT BLOOD PRESSURE: RECORDED AT 168 /94 PATINET LYING DOWN ON HIS RIGHT SIDE C/O NAUSEA
[2019-08-14 05:42] LABS: ALANINE AMINOTRANSFERASE 9 U/L (12-78); ALBUMIN 0.9 G/DL (3.4-5.0); ALBUMIN/GLOBULIN RATIO 0.1 (1.1-1.5); ALKALINE PHOSPHATASE 76 IU/L (46-116); ANION GAP 13 (8-16); ASPARTATE AMINO TRANSFERASE 21 U/L (10-37); BILIRUBIN,TOTAL 0.8 MG/DL (0.1-1.0); BLOOD UREA NITROGEN 60 MG/DL (7-18); BUN/CREATININE RATIO 5.4 (5.4-32.0); CALCIUM 6.5 MG/DL (8.5-10.1); CHLORIDE 99 MMOL/L (99-107); GLUCOSE 188 MG/DL (70-104); POTASSIUM 3.6 MMOL/L (3.5-5.1); SODIUM 137 MMOL/L (135-145); TOTAL CARBON DIOXIDE 24.9 MMOL/L (24-32); TOTAL PROTEIN 8.1 G/DL (6.4-8.2); eGFR 5 ML/MIN
[2019-08-14 05:45] LABS: TROPONIN I 0.13 NG/ML (0.0-0.05)
[2019-08-14 05:56] LABS: PARTIAL THROMBOPLASTIN TIME 31 SECONDS (22-32)
[2019-08-14] MEDS ORDERED: ondansetron/PF 4mg/2ml inj IV ONE (06:05)
[2019-08-14] MEDS ORDERED: aspirin 81mg tab.chew PO ONE (06:20)
[2019-08-14] MEDS: nitroGLYCERIN 0.4mg SUBLingual tab SL PRN ×3 (06:25→06:39)
[2019-08-14] MEDS ORDERED: heparin sodium, porcine/PF 100unit/ml 5ML syringe IV ONE (06:45)
[2019-08-14 06:55] LABS: LIPASE 147 U/L (73-393); MAGNESIUM 1.7 MG/DL (1.5-2.4); PHOSPHORUS 8.7 MG/DL (2.3-4.5)
[2019-08-14] MEDS ORDERED: POTA10TA10 PO (07:01)
[2019-08-14] MEDS ORDERED: INSU100C4 SQ (07:01)
[2019-08-14] MEDS ORDERED: LANTUS SQ (07:01)
--- NOTE | 2019-08-14 07:02 | NUR ---
PT PLACED ON BIPAP: RATE 14, IPAP 15, EPAP 5
--- NOTE | 2019-08-14 08:01 | NUR ---
DR HATHAWAY AT BEDSIDE, ADVISED HE SPOKE WITH DR CARIAS, PT IS BEING DISCHARGED AMA
[2019-08-14 08:02] LABS: ANISOCYTOSIS 2+; MICROCYTOSIS 1+; PLATELET ESTIMATE NORMAL
[2019-08-14] MEDS ORDERED: nitroGLYCERIN 1gm ointment UD TP ONE (08:05)
[2019-08-14 08:30] VITALS: BP 128/93
== END 2019-08-14 08:36 | disposition left against medical advice (07) ==
LOC: ER 05:02
DX: R06.02 Shortness of breath (principal); R11.2 Nausea with vomiting, unspecified; I12.9 Hypertensive chronic kidney disease with stage 1 through stage 4 chronic kidney disease, or unspecified chronic kidney disease; E11.22 Type 2 diabetes mellitus with diabetic chronic kidney disease; N18.9 Chronic kidney disease, unspecified; Z99.2 Dependence on renal dialysis; Z90.49 Acquired absence of other specified parts of digestive tract; Z98.890 Other specified postprocedural states; Z88.2 Allergy status to sulfonamides; Z79.899 Other long term (current) drug therapy
CPT/HCPCS: 36415; 71045; 80053; 83605; 83690; 83735; 83880; 84100; 84484; 85025; 85610; 85730; 87040; 93005; 94660; 96374; 96375; 99285; J1642; J2405; 94760

== ENCOUNTER 2019-08-19 10:46 | Outpatient (CLI) | payer BC ==
[~2019-08-19 10:46] MED LIST changes: -CLIN300C19 PO; +INSU100C4 SQ; +LANTUS SQ; +POTA10TA10 PO; -SUCR500T PO
== END 2019-08-19 13:08 | disposition home or self-care (01) ==
LOC: WOUND CARE 10:46 → EDSTATUS 11:00 → WOUND CARE 13:08
PROVIDERS: ATTEND Surgery
DX: T81.89XD Other complications of procedures, not elsewhere classified, subsequent encounter (principal); E11.621 Type 2 diabetes mellitus with foot ulcer; L97.512 Non-pressure chronic ulcer of other part of right foot with fat layer exposed; L97.522 Non-pressure chronic ulcer of other part of left foot with fat layer exposed; E11.43 Type 2 diabetes mellitus with diabetic autonomic (poly)neuropathy; E11.10 Type 2 diabetes mellitus with ketoacidosis without coma; E11.65 Type 2 diabetes mellitus with hyperglycemia; E11.21 Type 2 diabetes mellitus with diabetic nephropathy; E11.52 Type 2 diabetes mellitus with diabetic peripheral angiopathy with gangrene; E11.69 Type 2 diabetes mellitus with other specified complication; M86.8X7 Other osteomyelitis, ankle and foot; I13.2 Hypertensive heart and chronic kidney disease with heart failure and with stage 5 chronic kidney disease, or end stage renal disease; E11.22 Type 2 diabetes mellitus with diabetic chronic kidney disease; I50.30 Unspecified diastolic (congestive) heart failure; N18.6 End stage renal disease; E78.5 Hyperlipidemia, unspecified; E66.01 Morbid (severe) obesity due to excess calories; F12.90 Cannabis use, unspecified, uncomplicated; F41.1 Generalized anxiety disorder; Z79.4 Long term (current) use of insulin; Z90.49 Acquired absence of other specified parts of digestive tract; Z99.2 Dependence on renal dialysis; Z87.891 Personal history of nicotine dependence; Z79.899 Other long term (current) drug therapy; Z86.14 Personal history of Methicillin resistant Staphylococcus aureus infection; Z79.2 Long term (current) use of antibiotics; Z68.41 Body mass index [BMI] 40.0-44.9, adult; Y83.8 Other surgical procedures as the cause of abnormal reaction of the patient, or of later complication, without mention of misadventure at the time of the procedure
CPT/HCPCS: 36416; 82948; G0463

== ENCOUNTER 2019-08-26 11:05 | Outpatient (CLI) | payer BC | END 2019-08-26 12:56 | disposition home or self-care (01) | LOC: WOUND CARE 11:05 | PROVIDERS: ATTEND Surgery | DX: T81.89XD Other complications of procedures, not elsewhere classified, subsequent encounter (principal); E11.621 Type 2 diabetes mellitus with foot ulcer; L97.512 Non-pressure chronic ulcer of other part of right foot with fat layer exposed; L97.522 Non-pressure chronic ulcer of other part of left foot with fat layer exposed; E11.43 Type 2 diabetes mellitus with diabetic autonomic (poly)neuropathy; E11.10 Type 2 diabetes mellitus with ketoacidosis without coma; E11.65 Type 2 diabetes mellitus with hyperglycemia; E11.21 Type 2 diabetes mellitus with diabetic nephropathy; E11.52 Type 2 diabetes mellitus with diabetic peripheral angiopathy with gangrene; E11.69 Type 2 diabetes mellitus with other specified complication; M86.8X7 Other osteomyelitis, ankle and foot; I13.2 Hypertensive heart and chronic kidney disease with heart failure and with stage 5 chronic kidney disease, or end stage renal disease; E11.22 Type 2 diabetes mellitus with diabetic chronic kidney disease; I50.30 Unspecified diastolic (congestive) heart failure; N18.6 End stage renal disease; E78.5 Hyperlipidemia, unspecified; E66.01 Morbid (severe) obesity due to excess calories; F12.90 Cannabis use, unspecified, uncomplicated; F41.1 Generalized anxiety disorder; Z79.4 Long term (current) use of insulin; Z90.49 Acquired absence of other specified parts of digestive tract; Z99.2 Dependence on renal dialysis; Z87.891 Personal history of nicotine dependence; Z79.899 Other long term (current) drug therapy; Z86.14 Personal history of Methicillin resistant Staphylococcus aureus infection; Z79.2 Long term (current) use of antibiotics; Z68.41 Body mass index [BMI] 40.0-44.9, adult; Y83.8 Other surgical procedures as the cause of abnormal reaction of the patient, or of later complication, without mention of misadventure at the time of the procedure | CPT/HCPCS: G0463 ==

== ENCOUNTER 2019-09-02 08:05 | Outpatient (CLI) | payer BC | END 2019-09-02 10:21 | disposition home or self-care (01) | LOC: WOUND CARE 08:05 → EDSTATUS 08:30 → WOUND CARE 10:21 | PROVIDERS: ATTEND Surgery | DX: T81.89XD Other complications of procedures, not elsewhere classified, subsequent encounter (principal); E11.621 Type 2 diabetes mellitus with foot ulcer; L97.512 Non-pressure chronic ulcer of other part of right foot with fat layer exposed; L97.522 Non-pressure chronic ulcer of other part of left foot with fat layer exposed; E11.43 Type 2 diabetes mellitus with diabetic autonomic (poly)neuropathy; E11.10 Type 2 diabetes mellitus with ketoacidosis without coma; E11.65 Type 2 diabetes mellitus with hyperglycemia; E11.21 Type 2 diabetes mellitus with diabetic nephropathy; E11.52 Type 2 diabetes mellitus with diabetic peripheral angiopathy with gangrene; E11.69 Type 2 diabetes mellitus with other specified complication; M86.8X7 Other osteomyelitis, ankle and foot; I13.2 Hypertensive heart and chronic kidney disease with heart failure and with stage 5 chronic kidney disease, or end stage renal disease; E11.22 Type 2 diabetes mellitus with diabetic chronic kidney disease; I50.30 Unspecified diastolic (congestive) heart failure; N18.6 End stage renal disease; E78.5 Hyperlipidemia, unspecified; E66.01 Morbid (severe) obesity due to excess calories; F12.90 Cannabis use, unspecified, uncomplicated; F41.1 Generalized anxiety disorder; Z79.4 Long term (current) use of insulin; Z90.49 Acquired absence of other specified parts of digestive tract; Z99.2 Dependence on renal dialysis; Z87.891 Personal history of nicotine dependence; Z79.899 Other long term (current) drug therapy; Z86.14 Personal history of Methicillin resistant Staphylococcus aureus infection; Z79.2 Long term (current) use of antibiotics; Z68.41 Body mass index [BMI] 40.0-44.9, adult; Y83.8 Other surgical procedures as the cause of abnormal reaction of the patient, or of later complication, without mention of misadventure at the time of the procedure | CPT/HCPCS: 11042; 82948; A6266; A4649; A4663; A6154; A6446 ==

== ENCOUNTER 2019-09-04 23:18 | Inpatient (IN) | payer BC ==
[~2019-09-04] VITALS: Ht 182.9 cm; Wt 131.6 kg
[2019-09-04] MEDS ORDERED: vancomycin/NS 1 GM ADD-VANTAGE 250 ML IV ONE (23:40)
[2019-09-04] MEDS ORDERED: piperacillin/tazo 3.375gm/50ml 50 ML IV ONE (23:40)
[2019-09-04] MEDS ORDERED: normal saline 1000ml 1,000 ML IV ONE (23:40)
[2019-09-05] VITALS (9 sets, daily range): BP systolic 107–179; BP diastolic 60–80
[2019-09-05] MEDS ORDERED: HYDROcodone/acetaminophen 5mg/325mg tablet PO PRN (00:05)
[2019-09-05] MEDS ORDERED: acetaminophen 325mg tablet PO PRN ×2 (00:05)
--- NOTE | 2019-09-05 00:06 | NUR ---
piv placed, labs drawn, , Catrina, at bedside. Pt reports thirst and his feet are starting to get painful. reports ususally not alot of pain to feet. Pt get peritonieal dialysis nightly, has not had today. Has not had any of his meds today. Given warm blankets and ice chips.
[2019-09-05] MEDS ORDERED: metolazone 2.5mg tablet PO PRN (00:10)
[2019-09-05 00:16] LABS: BASOPHILS # (AUTO) 0.1 X10'3 (0-0.2); EOSINOPHILS # (AUTO) 0.3 X10'3 (0-0.9); EOSINOPHILS % (AUTO) 2.4 % (0-6); HEMATOCRIT 26.2 % (42.0-52.0); HEMOGLOBIN 8.2 g/dl (14.0-17.9); LYMPHOCYTES # (AUTO) 1.1 X10'3 (1.1-4.8); LYMPHOCYTES % (AUTO) 8.4 % (21-51); MEAN CORPUSCULAR HEMOGLOBIN 26.8 PG (27.0-31.0); MEAN CORPUSCULAR HGB CONC 31.2 g/dL (33.0-36.5); MEAN CORPUSCULAR VOLUME 85.9 FL (78-98); MEAN PLATELET VOLUME 9.6 FL (7.4-10.4); MONOCYTES # (AUTO) 0.9 X10'3 (0-0.9); NEUTROPHILS # (AUTO) 10.6 X10'3 (1.8-7.7); NEUTROPHILS % (AUTO) 81.2 % (42-75); PLATELET COUNT 355 X10'3 (140-440); RED BLOOD COUNT 3.05 X10'6 (4.70-6.10); RED CELL DISTRIBUTION WIDTH 25.2 % (11.5-14.5); WHITE BLOOD COUNT 13.1 X10'3 (4.5-11.0)
[2019-09-05 00:29] LABS: ALANINE AMINOTRANSFERASE 32 U/L (12-78); ALBUMIN 1.4 G/DL (3.4-5.0); ALBUMIN/GLOBULIN RATIO 0.2 (1.1-1.5); ALKALINE PHOSPHATASE 184 IU/L (46-116); ANION GAP 15 (8-16); ASPARTATE AMINO TRANSFERASE 39 U/L (10-37); BILIRUBIN,TOTAL 0.7 MG/DL (0.1-1.0); BLOOD UREA NITROGEN 84 MG/DL (7-18); BUN/CREATININE RATIO 7.7 (5.4-32.0); CALCIUM 6.3 MG/DL (8.5-10.1); CHLORIDE 102 MMOL/L (99-107); CREATININE 10.85 MG/DL (0.60-1.10); GLUCOSE 206 MG/DL (70-104); MAGNESIUM 1.6 MG/DL (1.5-2.4); POTASSIUM 3.8 MMOL/L (3.5-5.1); SODIUM 138 MMOL/L (135-145); TOTAL CARBON DIOXIDE 20.7 MMOL/L (24-32); TOTAL PROTEIN 7.4 G/DL (6.4-8.2); eGFR 5 ML/MIN
[2019-09-05] MEDS: ondansetron/PF 4mg/2ml inj IV PRN (01:00)
[2019-09-05] MEDS: morphine 2 MG/ML inj. syringe IV PRN ×4 (01:01→19:23)
--- NOTE | 2019-09-05 01:16 | NUR ---
VERBAL RECEIVED FROM Gallo GARCÍA FOR CPAP. HE DOSE NOT ANTICIPATE PT GETTING HIS PD TONIGHT, WILL LIKELY HAPPEN IN AM.
--- NOTE | 2019-09-05 01:20 | NUR ---
Received report from Marleni DEVINE from the ER. Patient arrived on the unit at 0220 on gurney, saline locked, room air, vss, alert and oriented. No signs of distress will continue to monitor
[2019-09-05] MEDS: temazepam 15mg capsule PO PRN ×2 (03:27→20:59)
--- NOTE | 2019-09-05 07:11 | NUR ---
Problems reprioritized. Patient report given, questions answered & plan of care reviewed with Gissell DEVINE.
[2019-09-05] MEDS: furosemide 40mg tablet PO SCH ×3 (07:29→20:54)
[2019-09-05] MEDS: diltiazem CD 120mg capsule (once-daily) PO SCH (07:29)
[2019-09-05] MEDS: atorvastatin 20mg tablet PO SCH (07:30)
[2019-09-05] MEDS: hydrALAZINE 25 MG tablet PO SCH ×3 (07:30→18:00)
[2019-09-05] MEDS: lisinopril 20mg tablet PO SCH (07:31)
[2019-09-05] MEDS: metoclopramide 10mg tablet PO SCH ×3 (07:31→20:54)
[2019-09-05] MEDS: carVEDilol 12.5mg tablet PO SCH ×2 (07:31→19:24)
[2019-09-05] MEDS: folic acid 1mg tablet PO SCH (07:32)
[2019-09-05] MEDS ORDERED: vancomycin/NS 1 GM ADD-VANTAGE 250 ML IV PRN (07:35)
[2019-09-05] MEDS ORDERED: piperacillin/tazo 3.375gm/50ml 50 ML IV SCH (08:00)
[2019-09-05] MEDS: sevelamer carbonate 800mg tablet PO SCH ×3 (08:00→19:24)
[2019-09-05] MEDS ORDERED: morphine 2 MG/ML inj. syringe IV PRN (08:20)
[2019-09-05] MEDS ORDERED: fentaNYL/PF 50MCG/1 ML 2ML syringe IV PRN ×2 (08:20)
[2019-09-05] MEDS ORDERED: morphine 4 MG/ML inj SYRINge IV PRN (08:20)
[2019-09-05] MEDS ORDERED: labetalol 20mg/4ml (5mg/ml) syringe IV PRN (08:20)
[2019-09-05] MEDS ORDERED: enalaprilat dihydrate 2.5mg/2ml vial IV PRN (08:20)
[2019-09-05] MEDS ORDERED: ringers solution, lacted 1,000 ML IV SCH (08:20)
[2019-09-05] MEDS ORDERED: ondansetron/PF 4mg/2ml inj IV PRN (08:20)
[2019-09-05] MEDS ORDERED: povidone-iodine 10% topical ointment 28.4gm TP ONE (08:27)
--- NOTE | 2019-09-05 08:40 | NUR ---
Pt out to surgery.
[2019-09-05] MEDS ORDERED: etomidate 2mg/ml inj. ONE (09:12)
[2019-09-05] MEDS ORDERED: fentaNYL/PF 50MCG/1 ML 2ML syringe ONE (09:12)
[2019-09-05] MEDS ORDERED: sevoflurane 250ml liquid IH ONE (09:14)
[2019-09-05] MEDS ORDERED: ePHEDrine 50MG/ML INJ. ONE (09:56)
--- NOTE | 2019-09-05 11:14 | NUR ---
Received from OR via surgical bed, accompanied by Anesthesiologist SANTINO and report given by Anesthesiolgist. Pt responsive to questions but sleepy. Mask to 10L and sats 100%, both feet wrapped with gauze and pardeep wraps, IVF to 18G on right AC running at TKO rate per MD because patient is a dialysis patient. Blood sugar checked, 134.
--- NOTE | 2019-09-05 11:50 | NUR ---
Report called to SYBIL Glass
--- NOTE | 2019-09-05 12:24 | NUR ---
Report called to receiving nurse. Transferred via surgical bed, at bedside parents waiting in room 351. Belongings remain in patient's room. Special Issues communicated to receiving nurse SYBIL Glass. Dressings to feet remain present, CDI. BLL, call light within reach. Post op VS stable, patient complains of hunger, says pain tolerable at 5/10.
--- NOTE | 2019-09-05 12:32 | NUR ---
Received report from Mari DEVINE from recovery room. Pt back to surgical floor in stable conditions. will monitor per protocol.
[2019-09-05] MEDS ORDERED: glucagon, human recombinant 1mg kit SUBCUT PRN (15:35)
[2019-09-05] MEDS ORDERED: dextrose 50%-water 50ml dispensing syringe IV PRN ×2 (15:35)
[2019-09-05] MEDS ORDERED: insulin Lispro (HumaLOG) vial - multi-dose SQ SCH (15:35)
[2019-09-05] MEDS ORDERED: dextrose ORAL solution 15 GM/59 ML bottle PO PRN ×2 (15:35)
[2019-09-05] MEDS ORDERED: MESSAGE TO PHARMACY PO ONE (15:35)
--- NOTE | 2019-09-05 18:25 | NUR ---
ASK PT ABOUT HIS HOME MEDS, PT WAS UPSET AND DID NOT WANT TO ANSWER ABOUT HIS MEDS. PT STARTED TO SHOUDT THAT HE DOESN'T REMEMBER AND THIS IS NOT A GOOD TIME, I CANT ANSWER!" TWO VISITORS THEN WALKED IN, I APOLOGIZED TO PT. AND EXCUSED MYSELF.
--- NOTE | 2019-09-05 18:59 | NUR ---
Problems reprioritized. Patient report given, questions answered & plan of care reviewed with SYBIL Padilla. Patient esting dinner with visitor at bedside. Dressing to bilateeral feet clean and dry.
[2019-09-05] MEDS: lactobacillus rhamnosus 10,000 MMU CELLS/CAPSULE PO SCH (19:24)
[2019-09-05] MEDS: piperacillin/tazo 3.375gm/50ml 50 ML IV SCH (19:24)
--- NOTE | 2019-09-05 19:37 | NUR ---
Patient in room [facility] 351. I have received report from Mireya DEVINE and had the opportunity to ask questions and assume patient care.
[2019-09-05] MEDS: gabapentin 300mg capsule PO SCH (20:54)
[2019-09-05] MEDS ORDERED: temazepam 15mg capsule PO PRN (21:00)
[2019-09-05] MEDS: insulin glargine (Lantus) pen - multi-dose SQ SCH (21:00)
[2019-09-05] MEDS: HYDROcodone/acetaminophen 10/325mg tab PO PRN (22:46)
[2019-09-05] MEDS ORDERED: HYDROmorphone inj. 0.5 MG/0.5 ML DISP.SYRIN IV PRN (23:45)
[2019-09-05] MEDS: HYDROmorphone 1 mg/ml syringe IV PRN (23:53)
[2019-09-06] VITALS: BP 108/57
[2019-09-06] MEDS: VANCOMYCIN LEVEL IV SCH (03:00)
[2019-09-06 03:37] LABS: BASOPHILS # (AUTO) 0.1 X10'3 (0-0.2); EOSINOPHILS # (AUTO) 0.4 X10'3 (0-0.9); HEMATOCRIT 24.1 % (42.0-52.0); HEMOGLOBIN 7.4 g/dl (14.0-17.9); LYMPHOCYTES # (AUTO) 1.3 X10'3 (1.1-4.8); LYMPHOCYTES % (AUTO) 10.7 % (21-51); MEAN CORPUSCULAR HEMOGLOBIN 26.4 PG (27.0-31.0); MEAN CORPUSCULAR HGB CONC 30.9 g/dL (33.0-36.5); MEAN CORPUSCULAR VOLUME 85.6 FL (78-98); MEAN PLATELET VOLUME 9.7 FL (7.4-10.4); MONOCYTES # (AUTO) 1.1 X10'3 (0-0.9); MONOCYTES % (AUTO) 8.6 % (2-12); NEUTROPHILS # (AUTO) 9.6 X10'3 (1.8-7.7); NEUTROPHILS % (AUTO) 76.7 % (42-75); PLATELET COUNT 327 X10'3 (140-440); RED BLOOD COUNT 2.81 X10'6 (4.70-6.10); RED CELL DISTRIBUTION WIDTH 24.7 % (11.5-14.5); WHITE BLOOD COUNT 12.5 X10'3 (4.5-11.0)
[2019-09-06 03:52] LABS: ALANINE AMINOTRANSFERASE 25 U/L (12-78); ALBUMIN 1.3 G/DL (3.4-5.0); ALBUMIN/GLOBULIN RATIO 0.2 (1.1-1.5); ALKALINE PHOSPHATASE 134 IU/L (46-116); ANION GAP 15 (8-16); ASPARTATE AMINO TRANSFERASE 23 U/L (10-37); BILIRUBIN,TOTAL 0.6 MG/DL (0.1-1.0); BLOOD UREA NITROGEN 89 MG/DL (7-18); BUN/CREATININE RATIO 8.1 (5.4-32.0); CALCIUM 6.4 MG/DL (8.5-10.1); CHLORIDE 101 MMOL/L (99-107); CREATININE 10.94 MG/DL (0.60-1.10); GLUCOSE 105 MG/DL (70-104); MAGNESIUM 1.6 MG/DL (1.5-2.4); PHOSPHORUS 9.4 MG/DL (2.3-4.5); POTASSIUM 4.3 MMOL/L (3.5-5.1); SODIUM 138 MMOL/L (135-145); TOTAL CARBON DIOXIDE 22.5 MMOL/L (24-32); TOTAL PROTEIN 6.7 G/DL (6.4-8.2); VANCOMYCIN,RANDOM 8.6 UG/ML; eGFR 5 ML/MIN
[2019-09-06] MEDS: HYDROmorphone 1 mg/ml syringe IV PRN ×5 (04:52→21:50)
[2019-09-06 04:56] LABS: ANISOCYTOSIS 3+; PLATELET ESTIMATE NORMAL
[2019-09-06 04:57] LABS: HYPOCHROMASIA 1+; STOMATOCYTES 1+
--- NOTE | 2019-09-06 05:03 | NUR ---
wrong patient entry on 2 RN skin check. Addendum: 09/06/19 at 0504 by Valerie Briceno RN Amended: Links added.
--- NOTE | 2019-09-06 06:33 | NUR ---
Patient in room [facility] 351. I have received report from SYBIL Padilla and had the opportunity to ask questions and assume patient care.
[2019-09-06 07:00] VITALS: BP 108/40
[2019-09-06] MEDS ORDERED: vancomycin/NS 1 GM ADD-VANTAGE 250 ML IV ONE (07:00)
[2019-09-06] MEDS: furosemide 40mg tablet PO SCH ×4 (08:00→21:50)
[2019-09-06] MEDS: hydrALAZINE 25 MG tablet PO SCH ×3 (08:00→17:33)
[2019-09-06] MEDS: diltiazem CD 120mg capsule (once-daily) PO SCH (08:00)
[2019-09-06] MEDS: lisinopril 20mg tablet PO SCH (08:00)
[2019-09-06] MEDS: carVEDilol 12.5mg tablet PO SCH ×2 (08:27→20:00)
[2019-09-06] MEDS: atorvastatin 20mg tablet PO SCH (08:28)
[2019-09-06] MEDS: folic acid 1mg tablet PO SCH (08:28)
[2019-09-06] MEDS: metoclopramide 10mg tablet PO SCH ×3 (08:28→21:50)
[2019-09-06] MEDS: lactobacillus rhamnosus 10,000 MMU CELLS/CAPSULE PO SCH ×2 (08:28→21:51)
[2019-09-06] MEDS: sevelamer carbonate 800mg tablet PO SCH ×3 (08:28→18:22)
[2019-09-06] MEDS: piperacillin/tazo 3.375gm/50ml 50 ML IV SCH ×2 (11:06→21:49)
[2019-09-06] MEDS: HYDROcodone/acetaminophen 10/325mg tab PO PRN (11:11)
--- NOTE | 2019-09-06 18:35 | NUR ---
Problems reprioritized. Patient report given, questions answered & plan of care reviewed with SYBIL Padilla.
[2019-09-06 20:00] VITALS: BP 108/86
[2019-09-06] MEDS: insulin glargine (Lantus) pen - multi-dose SQ SCH (21:00)
[2019-09-06] MEDS: gabapentin 300mg capsule PO SCH (21:50)
[2019-09-06] MEDS: ondansetron/PF 4mg/2ml inj IV PRN (21:59)
[2019-09-07] VITALS (7 sets, daily range): BP systolic 91–137; BP diastolic 41–61
[2019-09-07] MEDS: HYDROmorphone 1 mg/ml syringe IV PRN ×4 (02:37→22:04)
[2019-09-07] MEDS: VANCOMYCIN LEVEL IV SCH (03:00)
[2019-09-07 03:45] LABS: BASOPHILS # (AUTO) 0.3 X10'3 (0-0.2); BASOPHILS % (AUTO) 1.7 % (0-1); EOSINOPHILS # (AUTO) 0.3 X10'3 (0-0.9); EOSINOPHILS % (AUTO) 1.7 % (0-6); HEMATOCRIT 23.1 % (42.0-52.0); HEMOGLOBIN 7.1 g/dl (14.0-17.9); LYMPHOCYTES # (AUTO) 1.3 X10'3 (1.1-4.8); LYMPHOCYTES % (AUTO) 8.7 % (21-51); MEAN CORPUSCULAR HEMOGLOBIN 26.4 PG (27.0-31.0); MEAN CORPUSCULAR HGB CONC 30.6 g/dL (33.0-36.5); MEAN CORPUSCULAR VOLUME 86.1 FL (78-98); MONOCYTES # (AUTO) 1.3 X10'3 (0-0.9); MONOCYTES % (AUTO) 8.4 % (2-12); NEUTROPHILS # (AUTO) 12.3 X10'3 (1.8-7.7); NEUTROPHILS % (AUTO) 79.5 % (42-75); PLATELET COUNT 357 X10'3 (140-440); RED BLOOD COUNT 2.68 X10'6 (4.70-6.10); RED CELL DISTRIBUTION WIDTH 24.6 % (11.5-14.5); WHITE BLOOD COUNT 15.5 X10'3 (4.5-11.0)
[2019-09-07 03:53] LABS: ALANINE AMINOTRANSFERASE 20 U/L (12-78); ALBUMIN 1.4 G/DL (3.4-5.0); ALBUMIN/GLOBULIN RATIO 0.2 (1.1-1.5); ALKALINE PHOSPHATASE 132 IU/L (46-116); ANION GAP 15 (8-16); ASPARTATE AMINO TRANSFERASE 19 U/L (10-37); BILIRUBIN,TOTAL 0.6 MG/DL (0.1-1.0); BLOOD UREA NITROGEN 93 MG/DL (7-18); BUN/CREATININE RATIO 7.8 (5.4-32.0); CALCIUM 6.8 MG/DL (8.5-10.1); CHLORIDE 100 MMOL/L (99-107); CREATININE 11.89 MG/DL (0.60-1.10); GLUCOSE 126 MG/DL (70-104); MAGNESIUM 1.6 MG/DL (1.5-2.4); PHOSPHORUS 12.5 MG/DL (2.3-4.5); POTASSIUM 4.3 MMOL/L (3.5-5.1); SODIUM 138 MMOL/L (135-145); TOTAL CARBON DIOXIDE 23.4 MMOL/L (24-32); TOTAL PROTEIN 7.2 G/DL (6.4-8.2); VANCOMYCIN,RANDOM 14.3 UG/ML; eGFR 5 ML/MIN
[2019-09-07] MEDS: HYDROcodone/acetaminophen 10/325mg tab PO PRN (05:50)
[2019-09-07 06:42] LABS: ANISOCYTOSIS 3+; HYPOCHROMASIA 1+; LARGE PLATELETS MODERATE; MICROCYTOSIS 1+; PLATELET ESTIMATE NORMAL; POLYCHROMASIA 1+
[2019-09-07] MEDS ORDERED: vancomycin/NS 1 GM ADD-VANTAGE 250 ML IV ONE (07:35)
[2019-09-07] MEDS: carVEDilol 12.5mg tablet PO SCH ×2 (08:00→19:59)
[2019-09-07] MEDS: lisinopril 20mg tablet PO SCH (08:00)
[2019-09-07] MEDS: diltiazem CD 120mg capsule (once-daily) PO SCH (09:01)
[2019-09-07] MEDS: hydrALAZINE 25 MG tablet PO SCH ×3 (09:01→18:00)
[2019-09-07] MEDS: furosemide 40mg tablet PO SCH ×3 (09:02→22:04)
[2019-09-07] MEDS: lactobacillus rhamnosus 10,000 MMU CELLS/CAPSULE PO SCH ×2 (09:02→19:59)
[2019-09-07] MEDS: folic acid 1mg tablet PO SCH (09:02)
[2019-09-07] MEDS: metoclopramide 10mg tablet PO SCH ×3 (09:02→22:04)
[2019-09-07] MEDS: sevelamer carbonate 800mg tablet PO SCH ×3 (09:03→18:14)
[2019-09-07] MEDS: atorvastatin 20mg tablet PO SCH (09:03)
[2019-09-07] MEDS: piperacillin/tazo 3.375gm/50ml 50 ML IV SCH ×2 (11:25→20:00)
--- NOTE | 2019-09-07 13:34 | NUR ---
Patient concerned about dialysis running slowly. no alarms are going off. Called on-call poultry service technician she said that her or another RN can come take a look as soon as possible.
[2019-09-07] MEDS ORDERED: lactulose 20gm/30ml cup PO PRN (15:50)
[2019-09-07] MEDS ORDERED: lactulose 20gm/30ml cup PO ONE (16:20)
--- NOTE | 2019-09-07 18:12 | NUR ---
Problems reprioritized. Patient report given, questions answered & plan of care reviewed with SYBIL Padilla.
[2019-09-07] MEDS: insulin glargine (Lantus) pen - multi-dose SQ SCH (21:00)
[2019-09-07] MEDS: gabapentin 300mg capsule PO SCH (22:04)
[2019-09-08] VITALS (15 sets, daily range): BP systolic 82–133; BP diastolic 37–57
[2019-09-08] MEDS: VANCOMYCIN LEVEL IV SCH (03:00)
[2019-09-08] MEDS: HYDROmorphone 1 mg/ml syringe IV PRN ×3 (03:28→22:35)
[2019-09-08] MEDS: HYDROcodone/acetaminophen 10/325mg tab PO PRN (05:39)
--- NOTE | 2019-09-08 06:38 | NUR ---
Problems reprioritized. Patient report given, questions answered & plan of care reviewed with NICK DEVINE.
[2019-09-08] MEDS: ondansetron/PF 4mg/2ml inj IV PRN (07:11)
[2019-09-08] MEDS: metoclopramide 10mg tablet PO SCH ×3 (08:00→20:15)
[2019-09-08] MEDS: folic acid 1mg tablet PO SCH (08:00)
[2019-09-08] MEDS: diltiazem CD 120mg capsule (once-daily) PO SCH (08:00)
[2019-09-08] MEDS: hydrALAZINE 25 MG tablet PO SCH (08:00)
[2019-09-08] MEDS: furosemide 40mg tablet PO SCH (08:00)
[2019-09-08] MEDS: sevelamer carbonate 800mg tablet PO SCH ×3 (08:00→17:37)
[2019-09-08] MEDS: lisinopril 20mg tablet PO SCH (08:00)
[2019-09-08] MEDS: carVEDilol 12.5mg tablet PO SCH (08:00)
[2019-09-08] MEDS: lactobacillus rhamnosus 10,000 MMU CELLS/CAPSULE PO SCH ×2 (08:00→20:15)
[2019-09-08] MEDS: atorvastatin 20mg tablet PO SCH (08:00)
[2019-09-08 08:27] LABS: BASOPHILS # (AUTO) 0.1 X10'3 (0-0.2); EOSINOPHILS # (AUTO) 0.2 X10'3 (0-0.9); EOSINOPHILS % (AUTO) 1.2 % (0-6); LYMPHOCYTES % (AUTO) 7.5 % (21-51); MEAN CORPUSCULAR HEMOGLOBIN 27.2 PG (27.0-31.0); MEAN CORPUSCULAR HGB CONC 31.5 g/dL (33.0-36.5); MEAN CORPUSCULAR VOLUME 86.3 FL (78-98); MEAN PLATELET VOLUME 9.1 FL (7.4-10.4); MONOCYTES # (AUTO) 1.2 X10'3 (0-0.9); MONOCYTES % (AUTO) 9.1 % (2-12); NEUTROPHILS # (AUTO) 10.5 X10'3 (1.8-7.7); NEUTROPHILS % (AUTO) 81.2 % (42-75); PLATELET COUNT 307 X10'3 (140-440); RED BLOOD COUNT 2.35 X10'6 (4.70-6.10); RED CELL DISTRIBUTION WIDTH 24.7 % (11.5-14.5); WHITE BLOOD COUNT 12.9 X10'3 (4.5-11.0)
[2019-09-08 08:30] LABS: HEMATOCRIT 20.3 % (42.0-52.0); HEMOGLOBIN 6.4 g/dl (14.0-17.9)
[2019-09-08 08:52] LABS: ALANINE AMINOTRANSFERASE 15 U/L (12-78); ALBUMIN 1.2 G/DL (3.4-5.0); ALBUMIN/GLOBULIN RATIO 0.2 (1.1-1.5); ALKALINE PHOSPHATASE 173 IU/L (46-116); ANION GAP 16 (8-16); ASPARTATE AMINO TRANSFERASE 14 U/L (10-37); BILIRUBIN,TOTAL 0.6 MG/DL (0.1-1.0); BLOOD UREA NITROGEN 98 MG/DL (7-18); CHLORIDE 100 MMOL/L (99-107); CREATININE 12.27 MG/DL (0.60-1.10); GLUCOSE 96 MG/DL (70-104); MAGNESIUM 1.6 MG/DL (1.5-2.4); PHOSPHORUS 11.4 MG/DL (2.3-4.5); POTASSIUM 4.5 MMOL/L (3.5-5.1); SODIUM 138 MMOL/L (135-145); TOTAL CARBON DIOXIDE 21.7 MMOL/L (24-32); TOTAL PROTEIN 6.5 G/DL (6.4-8.2); VANCOMYCIN,RANDOM 21.2 UG/ML; eGFR 5 ML/MIN
[2019-09-08 09:07] LABS: PLATELET ESTIMATE NORMAL
[2019-09-08 09:08] LABS: ANISOCYTOSIS 3+; HYPOCHROMASIA 1+; MICROCYTOSIS 1+; POIKILOCYTOSIS FEW; POLYCHROMASIA FEW
[2019-09-08] MEDS: piperacillin/tazo 3.375gm/50ml 50 ML IV SCH ×2 (09:39→21:06)
[2019-09-08] MEDS ORDERED: calcium chloride 100 MG/1 ML inj IV ONE (09:45)
[2019-09-08] MEDS ORDERED: proCHLORperazine 10 MG/2 ml inj IV PRN (09:50)
--- NOTE | 2019-09-08 10:10 | NUR ---
Calcium Chloride pushed IV by Sienna Gates
[2019-09-08] MEDS ORDERED: normal saline 500ml IV soln 500 ML IV ONE (11:15)
[2019-09-08 13:01] LABS: FERRITIN 569 NG/ML (26-388)
[2019-09-08 13:20] LABS: % IRON SATURATION 10 % (11-46); IRON 14 UG/DL (53-167); TOTAL IRON BINDING CAPACITY 147 UG/DL (259-388)
--- NOTE | 2019-09-08 15:50 | NUR ---
Patient tolerated 1 unit of PRBC. VSS, lungs are clear. going to pickle maker 2nd unit.
[2019-09-08 16:55] LABS: OCCULT BLOOD STOOL NEGATIVE (Neg)
--- NOTE | 2019-09-08 17:08 | NUR ---
Student documentation: I have reviewed and agree with all interventions, assessments performed and documented by SN Dheeraj. Student Medication Administration: For this medication-pass time frame, all medication were reviewed, dispensed, administered and documented per hospital policy by SN Dheeraj.
--- NOTE | 2019-09-08 18:38 | NUR ---
Patient in room [facility] 351. I have received report from Susan DEVINE and had the opportunity to ask questions and assume patient care.
--- NOTE | 2019-09-08 18:48 | NUR ---
Problems reprioritized. Patient report given, questions answered & plan of care reviewed with SYBIL ATKINSON.
--- NOTE | 2019-09-08 19:04 | NUR ---
Patient did not eat dinner provided by hospital, but was eating some take out that family had brought in. Addendum: 09/09/19 at 0105 by Lisa Silva RN Amended: Links added.
[2019-09-08] MEDS: gabapentin 300mg capsule PO SCH (20:15)
[2019-09-08] MEDS ORDERED: sevelamer carbonate 800mg tablet PO ONE (20:25)
[2019-09-08] MEDS: insulin glargine (Lantus) pen - multi-dose SQ SCH (22:42)
[2019-09-09] VITALS: BP 113/57
[2019-09-09] MEDS: VANCOMYCIN LEVEL IV SCH (03:00)
[2019-09-09 05:28] LABS: PARTIAL THROMBOPLASTIN TIME 32 SECONDS (22-32)
[2019-09-09 05:30] LABS: BASOPHILS # (AUTO) 0.1 X10'3 (0-0.2); BASOPHILS % (AUTO) 0.8 % (0-1); EOSINOPHILS # (AUTO) 0.2 X10'3 (0-0.9); EOSINOPHILS % (AUTO) 1.2 % (0-6); HEMATOCRIT 23.2 % (42.0-52.0); HEMOGLOBIN 7.4 g/dl (14.0-17.9); LYMPHOCYTES # (AUTO) 1.4 X10'3 (1.1-4.8); LYMPHOCYTES % (AUTO) 9.8 % (21-51); MEAN CORPUSCULAR HEMOGLOBIN 27.1 PG (27.0-31.0); MEAN CORPUSCULAR HGB CONC 31.8 g/dL (33.0-36.5); MEAN CORPUSCULAR VOLUME 85.1 FL (78-98); MEAN PLATELET VOLUME 9.8 FL (7.4-10.4); MONOCYTES # (AUTO) 1.3 X10'3 (0-0.9); MONOCYTES % (AUTO) 9.4 % (2-12); NEUTROPHILS # (AUTO) 11.2 X10'3 (1.8-7.7); NEUTROPHILS % (AUTO) 78.8 % (42-75); PLATELET COUNT 279 X10'3 (140-440); RED BLOOD COUNT 2.72 X10'6 (4.70-6.10); RED CELL DISTRIBUTION WIDTH 22.4 % (11.5-14.5); WHITE BLOOD COUNT 14.2 X10'3 (4.5-11.0)
[2019-09-09 05:46] LABS: ALANINE AMINOTRANSFERASE 14 U/L (12-78); ALBUMIN 1.2 G/DL (3.4-5.0); ALBUMIN/GLOBULIN RATIO 0.2 (1.1-1.5); ALKALINE PHOSPHATASE 185 IU/L (46-116); ANION GAP 17 (8-16); ASPARTATE AMINO TRANSFERASE 17 U/L (10-37); BILIRUBIN,TOTAL 0.6 MG/DL (0.1-1.0); BLOOD UREA NITROGEN 102 MG/DL (7-18); BUN/CREATININE RATIO 8.2 (5.4-32.0); CALCIUM 6.1 MG/DL (8.5-10.1); CHLORIDE 100 MMOL/L (99-107); CREATININE 12.47 MG/DL (0.60-1.10); GLUCOSE 149 MG/DL (70-104); MAGNESIUM 1.7 MG/DL (1.5-2.4); POTASSIUM 4.4 MMOL/L (3.5-5.1); SODIUM 138 MMOL/L (135-145); TOTAL CARBON DIOXIDE 21.2 MMOL/L (24-32); TOTAL PROTEIN 6.4 G/DL (6.4-8.2); VANCOMYCIN,RANDOM 18.9 UG/ML; eGFR 4 ML/MIN
[2019-09-09 05:48] LABS: PHOSPHORUS 11.2 MG/DL (2.3-4.5)
--- NOTE | 2019-09-09 06:53 | NUR ---
Patient in room [facility] 351. I have received report from SYBIL ATKINSON and had the opportunity to ask questions and assume patient care.
--- NOTE | 2019-09-09 06:57 | NUR ---
Problems reprioritized. Patient report given, questions answered & plan of care reviewed with Tam DEVINE.
[2019-09-09 07:00] VITALS: BP 126/47
[2019-09-09] MEDS: lisinopril 20mg tablet PO SCH (08:00)
[2019-09-09] MEDS: HYDROmorphone 1 mg/ml syringe IV PRN ×3 (08:35→22:40)
[2019-09-09] MEDS: sevelamer carbonate 800mg tablet PO SCH ×3 (08:36→17:33)
[2019-09-09] MEDS: piperacillin/tazo 3.375gm/50ml 50 ML IV SCH ×2 (08:36→20:52)
[2019-09-09] MEDS: lactobacillus rhamnosus 10,000 MMU CELLS/CAPSULE PO SCH ×2 (08:36→20:52)
[2019-09-09] MEDS: atorvastatin 20mg tablet PO SCH (08:36)
[2019-09-09] MEDS: folic acid 1mg tablet PO SCH (08:37)
[2019-09-09] MEDS: metoclopramide 10mg tablet PO SCH ×3 (08:37→20:53)
[2019-09-09 09:48] LABS: ANISOCYTOSIS 3+; HYPOCHROMASIA 1+; MICROCYTOSIS 1+; PLATELET ESTIMATE NORMAL; POLYCHROMASIA 1+
[2019-09-09 11:00] VITALS: BP 114/62
--- NOTE | 2019-09-09 11:00 | NUR ---
Dr. Jeff in to see patient and removed dressings to bilateral transmetatarsal amputation wounds. Dr. Jeff ordered to have cleanse with NS and pat dry. Place xeroform on wound, wrap with kerlix and reinforce with JAE wrap. Dressing changed completed and patient tolerated dressing change well.
[2019-09-09] MEDS: hydrALAZINE 25 MG tablet PO SCH ×2 (13:00→17:33)
[2019-09-09] MEDS: furosemide 40mg tablet PO SCH ×2 (13:11→20:53)
[2019-09-09] MEDS: iron sucrose complex injection 200 MG in normal saline 100ml IV soln 100 ML IV SCH (13:11)
[2019-09-09] MEDS ORDERED: tPA-cathflo 2 MG/2 ml IV flush ICATH ONE ×2 (13:35)
--- NOTE | 2019-09-09 18:11 | NUR ---
Problems reprioritized. Patient report given, questions answered & plan of care reviewed with SYBIL Gonzalez.
--- NOTE | 2019-09-09 18:17 | NUR ---
Patient in room [facility] 351. I have received report from Tam DEVINE and had the opportunity to ask questions and assume patient care.
[2019-09-09 19:00] VITALS: BP 123/68
--- NOTE | 2019-09-09 19:58 | NUR ---
Patient has been unhappy and complaining since change of shift wanting to go home. Informed pt. that I would call the on-call motel keeper on his behalf. talked to dialysis nurse and stated she would call MD and let me know if he agrees to D/C home tonight. Addendum: 09/09/19 at 2008 by Lisa Silva RN When I went back to relay this information,patient stated "fine, I will stay tonight if thats what he wants". Called back motel keeper to let her know that he had now agreed to stay, with the understanding that he will d/c home in the AM.
--- NOTE | 2019-09-09 20:09 | NUR ---
Dialysis nurse still here and offered again to put him on PD tonight as he is staying. Patient adamantly refused and now upset again stating that MD lied to him. Patient is very difficult,passive/aggressive.
[2019-09-09] MEDS: carVEDilol 12.5mg tablet PO SCH (20:52)
[2019-09-09] MEDS: gabapentin 300mg capsule PO SCH (20:53)
[2019-09-09 20:55] VITALS: BP 125/69
[2019-09-09] MEDS: insulin glargine (Lantus) pen - multi-dose SQ SCH (21:00)
--- NOTE | 2019-09-09 21:00 | NUR ---
Patient declined having his accu check done. Addendum: 09/09/19 at 2325 by Lisa Silva RN Amended: Links added.
[2019-09-10] VITALS: BP 132/69
[2019-09-10] MEDS: VANCOMYCIN LEVEL IV SCH (00:37)
[2019-09-10 05:25] LABS: BASOPHILS # (AUTO) 0.1 X10'3 (0-0.2); EOSINOPHILS # (AUTO) 0.4 X10'3 (0-0.9); EOSINOPHILS % (AUTO) 3.1 % (0-6); HEMATOCRIT 24.9 % (42.0-52.0); HEMOGLOBIN 7.9 g/dl (14.0-17.9); LYMPHOCYTES # (AUTO) 1.2 X10'3 (1.1-4.8); LYMPHOCYTES % (AUTO) 10.5 % (21-51); MEAN CORPUSCULAR HEMOGLOBIN 27.3 PG (27.0-31.0); MEAN CORPUSCULAR HGB CONC 31.8 g/dL (33.0-36.5); MEAN CORPUSCULAR VOLUME 85.7 FL (78-98); MEAN PLATELET VOLUME 9.8 FL (7.4-10.4); MONOCYTES % (AUTO) 8.7 % (2-12); NEUTROPHILS # (AUTO) 9.1 X10'3 (1.8-7.7); NEUTROPHILS % (AUTO) 76.7 % (42-75); PLATELET COUNT 264 X10'3 (140-440); RED CELL DISTRIBUTION WIDTH 22.3 % (11.5-14.5); WHITE BLOOD COUNT 11.9 X10'3 (4.5-11.0)
--- NOTE | 2019-09-10 05:42 | NUR ---
Patient refused to have peritoneal dialysis done last night. Addendum: 09/10/19 at 0556 by Lisa Silva RN Amended: Links added.
[2019-09-10 05:46] LABS: ALANINE AMINOTRANSFERASE 14 U/L (12-78); ALBUMIN 1.2 G/DL (3.4-5.0); ALBUMIN/GLOBULIN RATIO 0.2 (1.1-1.5); ALKALINE PHOSPHATASE 252 IU/L (46-116); ANION GAP 17 (8-16); ASPARTATE AMINO TRANSFERASE 17 U/L (10-37); BILIRUBIN,TOTAL 0.6 MG/DL (0.1-1.0); BLOOD UREA NITROGEN 109 MG/DL (7-18); BUN/CREATININE RATIO 8.2 (5.4-32.0); CALCIUM 6.2 MG/DL (8.5-10.1); CHLORIDE 101 MMOL/L (99-107); CREATININE 13.36 MG/DL (0.60-1.10); GLUCOSE 146 MG/DL (70-104); MAGNESIUM 1.8 MG/DL (1.5-2.4); POTASSIUM 4.7 MMOL/L (3.5-5.1); SODIUM 139 MMOL/L (135-145); TOTAL CARBON DIOXIDE 20.8 MMOL/L (24-32); TOTAL PROTEIN 6.6 G/DL (6.4-8.2); VANCOMYCIN,RANDOM 18.7 UG/ML; eGFR 4 ML/MIN
[2019-09-10 05:48] LABS: PHOSPHORUS 11.5 MG/DL (2.3-4.5)
[2019-09-10] MEDS ORDERED: LEVO500T89 PO (08:03)
[2019-09-10 08:15] VITALS: BP 147/108
[2019-09-10] MEDS: iron sucrose complex injection 200 MG in normal saline 100ml IV soln 100 ML IV SCH (08:22)
[2019-09-10] MEDS: HYDROcodone/acetaminophen 10/325mg tab PO PRN (08:23)
[2019-09-10] MEDS: atorvastatin 20mg tablet PO SCH (08:23)
[2019-09-10] MEDS: furosemide 40mg tablet PO SCH (08:24)
[2019-09-10] MEDS: folic acid 1mg tablet PO SCH (08:24)
[2019-09-10] MEDS: sevelamer carbonate 800mg tablet PO SCH (08:24)
[2019-09-10] MEDS: metoclopramide 10mg tablet PO SCH (08:24)
[2019-09-10 08:25] VITALS: BP_SYST 147
[2019-09-10] MEDS: hydrALAZINE 25 MG tablet PO SCH (08:25)
[2019-09-10] MEDS: piperacillin/tazo 3.375gm/50ml 50 ML IV SCH (08:25)
[2019-09-10] MEDS: lactobacillus rhamnosus 10,000 MMU CELLS/CAPSULE PO SCH (08:25)
[2019-09-10] MEDS: lisinopril 20mg tablet PO SCH (08:25)
[2019-09-10] MEDS: diltiazem CD 120mg capsule (once-daily) PO SCH (08:25)
[2019-09-10] MEDS: carVEDilol 12.5mg tablet PO SCH (08:25)
--- NOTE | 2019-09-10 08:30 | NUR ---
mild to moderate tremoring noted generally on pt assessment this AM. VS and BG stable. pt stated tremoring started last night. pts states he thinks it's d/t being anxious and wanting to be discharged. Dr. Dinh made aware of tremoring, no intervention needed per MD.
[2019-09-10 09:06] LABS: ANISOCYTOSIS 3+; PLATELET ESTIMATE NORMAL
[2019-09-10 09:07] LABS: HYPOCHROMASIA 1+
[2019-09-10 09:08] LABS: POLYCHROMASIA FEW
--- NOTE | 2019-09-10 11:30 | NUR ---
written Rx from Dr. Jeff given to pt for [place] for discharge.
== END 2019-09-10 11:30 | disposition home health service (06) | DRG 617 ==
LOC: ER 23:19 → ED HOLD 09-05 00:01 → EDBEDREQ 09-05 00:59 → SUR 3N 09-05 01:20
PROVIDERS: ADMIT Internal Medicine Critical Care Medicine; ATTEND Internal Medicine Critical Care Medicine
PROC: 0Y6N0ZB Detachment at Left Foot, Partial 2nd Ray, Open Approach (ICD-10-PCS; 2019-09-05)
PROC: 0Y6N0ZC Detachment at Left Foot, Partial 3rd Ray, Open Approach (ICD-10-PCS; 2019-09-05)
PROC: 0Y6N0ZD Detachment at Left Foot, Partial 4th Ray, Open Approach (ICD-10-PCS; 2019-09-05)
PROC: 0Y6N0ZF Detachment at Left Foot, Partial 5th Ray, Open Approach (ICD-10-PCS; 2019-09-05)
PROC: 0Y6M0Z9 Detachment at Right Foot, Partial 1st Ray, Open Approach (ICD-10-PCS; 2019-09-05)
PROC: 0Y6M0ZB Detachment at Right Foot, Partial 2nd Ray, Open Approach (ICD-10-PCS; 2019-09-05)
PROC: 0Y6M0ZC Detachment at Right Foot, Partial 3rd Ray, Open Approach (ICD-10-PCS; 2019-09-05)
PROC: 0Y6M0ZD Detachment at Right Foot, Partial 4th Ray, Open Approach (ICD-10-PCS; 2019-09-05)
PROC: 0Y6M0ZF Detachment at Right Foot, Partial 5th Ray, Open Approach (ICD-10-PCS; 2019-09-05)
PROC: 0Y6N0Z9 Detachment at Left Foot, Partial 1st Ray, Open Approach (ICD-10-PCS; principal; 2019-09-05 09:14)
PROC: 3E1M39Z Irrigation of Peritoneal Cavity using Dialysate, Percutaneous Approach (ICD-10-PCS; 2019-09-06)
PROC: 3E1M39Z Irrigation of Peritoneal Cavity using Dialysate, Percutaneous Approach (ICD-10-PCS; 2019-09-07)
PROC: 30233N1 Transfusion of Nonautologous Red Blood Cells into Peripheral Vein, Percutaneous Approach (ICD-10-PCS; 2019-09-08)
PROC: 3E1M39Z Irrigation of Peritoneal Cavity using Dialysate, Percutaneous Approach (ICD-10-PCS; 2019-09-08)
PROC: 3E03317 Introduction of Other Thrombolytic into Peripheral Vein, Percutaneous Approach (ICD-10-PCS; 2019-09-09)
DX: E11.69 Type 2 diabetes mellitus with other specified complication (principal); M86.171 Other acute osteomyelitis, right ankle and foot; E11.52 Type 2 diabetes mellitus with diabetic peripheral angiopathy with gangrene; I96 Gangrene, not elsewhere classified; I12.0 Hypertensive chronic kidney disease with stage 5 chronic kidney disease or end stage renal disease; T85.611A Breakdown (mechanical) of intraperitoneal dialysis catheter, initial encounter; D63.1 Anemia in chronic kidney disease; G47.30 Sleep apnea, unspecified; E66.01 Morbid (severe) obesity due to excess calories; I95.9 Hypotension, unspecified; Y83.8 Other surgical procedures as the cause of abnormal reaction of the patient, or of later complication, without mention of misadventure at the time of the procedure; N18.6 End stage renal disease; N25.81 Secondary hyperparathyroidism of renal origin; E11.22 Type 2 diabetes mellitus with diabetic chronic kidney disease; Z99.2 Dependence on renal dialysis; Z68.39 Body mass index [BMI] 39.0-39.9, adult; Z90.49 Acquired absence of other specified parts of digestive tract; Z88.1 Allergy status to other antibiotic agents; Z68.29 Body mass index [BMI] 29.0-29.9, adult; Y92.89 Other specified places as the place of occurrence of the external cause
CPT/HCPCS: 99285; Z7506; Z7508; 36415; 36430; 71045; 74018; 80053; 80202; 82272; 82728; 82948; 83540; 83550; 83735; 84100; 85025; 85610; 85730; 86885; 86900; 86901; 86920; 87081; 93005; 94660; 94760; 97110; 97162; 97530; A4618; A6222; A6446; A6449; A7000; E1594; G0378; J0780; J1170; J1644; J1756; J1815; J2270; J2405; J2543; J2997; J3010; J3370; J3590; J7030; J7040; J7120; J8597; P9016

== ENCOUNTER 2019-09-12 09:04 | Outpatient (CLI) | payer BC ==
[~2019-09-12 09:04] MED LIST changes: -INSU100C4 SQ; -LANTUS SQ; +LEVO500T89 PO
== END 2019-09-12 11:46 | disposition home or self-care (01) ==
LOC: WOUND CARE 09:04 → EDSTATUS 09:30 → WOUND CARE 11:46
PROVIDERS: ATTEND Surgery
DX: T87.89 Other complications of amputation stump (principal); E11.621 Type 2 diabetes mellitus with foot ulcer; L97.512 Non-pressure chronic ulcer of other part of right foot with fat layer exposed; L97.522 Non-pressure chronic ulcer of other part of left foot with fat layer exposed; E11.43 Type 2 diabetes mellitus with diabetic autonomic (poly)neuropathy; E11.10 Type 2 diabetes mellitus with ketoacidosis without coma; E11.65 Type 2 diabetes mellitus with hyperglycemia; E11.21 Type 2 diabetes mellitus with diabetic nephropathy; E11.52 Type 2 diabetes mellitus with diabetic peripheral angiopathy with gangrene; E11.69 Type 2 diabetes mellitus with other specified complication; M86.8X7 Other osteomyelitis, ankle and foot; I13.2 Hypertensive heart and chronic kidney disease with heart failure and with stage 5 chronic kidney disease, or end stage renal disease; E11.22 Type 2 diabetes mellitus with diabetic chronic kidney disease; I50.30 Unspecified diastolic (congestive) heart failure; N18.6 End stage renal disease; E78.5 Hyperlipidemia, unspecified; E66.01 Morbid (severe) obesity due to excess calories; F12.90 Cannabis use, unspecified, uncomplicated; F41.1 Generalized anxiety disorder; Z79.4 Long term (current) use of insulin; Z90.49 Acquired absence of other specified parts of digestive tract; Z99.2 Dependence on renal dialysis; Z87.891 Personal history of nicotine dependence; Z79.899 Other long term (current) drug therapy; Z86.14 Personal history of Methicillin resistant Staphylococcus aureus infection; Z79.2 Long term (current) use of antibiotics; Z68.41 Body mass index [BMI] 40.0-44.9, adult; Y83.5 Amputation of limb(s) as the cause of abnormal reaction of the patient, or of later complication, without mention of misadventure at the time of the procedure
CPT/HCPCS: 36416; 82948; A6223; G0463; L3260; A4663; A6446

== ENCOUNTER 2019-09-19 09:18 | Day surgery (SDC) | payer BC ==
[~2019-09-19 09:18] MED LIST changes: -LEVO500T89 PO
[2019-09-19] MEDS ORDERED: mupirocin 2% ointment 22GM ONE (10:20)
== END 2019-09-19 10:39 | disposition home or self-care (01) ==
LOC: WOUND CARE 09:18
PROVIDERS: ATTEND Surgery
DX: T87.89 Other complications of amputation stump (principal); E11.621 Type 2 diabetes mellitus with foot ulcer; L97.512 Non-pressure chronic ulcer of other part of right foot with fat layer exposed; L97.522 Non-pressure chronic ulcer of other part of left foot with fat layer exposed; E11.43 Type 2 diabetes mellitus with diabetic autonomic (poly)neuropathy; E11.10 Type 2 diabetes mellitus with ketoacidosis without coma; E11.65 Type 2 diabetes mellitus with hyperglycemia; E11.21 Type 2 diabetes mellitus with diabetic nephropathy; E11.52 Type 2 diabetes mellitus with diabetic peripheral angiopathy with gangrene; E11.69 Type 2 diabetes mellitus with other specified complication; M86.8X7 Other osteomyelitis, ankle and foot; I13.2 Hypertensive heart and chronic kidney disease with heart failure and with stage 5 chronic kidney disease, or end stage renal disease; E11.22 Type 2 diabetes mellitus with diabetic chronic kidney disease; I50.30 Unspecified diastolic (congestive) heart failure; N18.6 End stage renal disease; E78.5 Hyperlipidemia, unspecified; E66.01 Morbid (severe) obesity due to excess calories; F12.90 Cannabis use, unspecified, uncomplicated; F41.1 Generalized anxiety disorder; Z79.4 Long term (current) use of insulin; Z90.49 Acquired absence of other specified parts of digestive tract; Z99.2 Dependence on renal dialysis; Z87.891 Personal history of nicotine dependence; Z79.899 Other long term (current) drug therapy; Z86.14 Personal history of Methicillin resistant Staphylococcus aureus infection; Z79.2 Long term (current) use of antibiotics; Z68.41 Body mass index [BMI] 40.0-44.9, adult; Y83.5 Amputation of limb(s) as the cause of abnormal reaction of the patient, or of later complication, without mention of misadventure at the time of the procedure
CPT/HCPCS: 36416; 82948; 97597; 97598

== ENCOUNTER 2019-09-24 09:15 | Outpatient (CLI) | payer BC ==
[2019-09-24] MEDS ORDERED: mupirocin 2% ointment 22GM ONE (10:39)
== END 2019-09-24 11:05 | disposition home or self-care (01) ==
LOC: WOUND CARE 09:15 → EDSTATUS 09:30 → WOUND CARE 11:05
PROVIDERS: ATTEND Surgery
DX: T87.89 Other complications of amputation stump (principal); E11.621 Type 2 diabetes mellitus with foot ulcer; L97.512 Non-pressure chronic ulcer of other part of right foot with fat layer exposed; L97.522 Non-pressure chronic ulcer of other part of left foot with fat layer exposed; E11.43 Type 2 diabetes mellitus with diabetic autonomic (poly)neuropathy; E11.10 Type 2 diabetes mellitus with ketoacidosis without coma; E11.65 Type 2 diabetes mellitus with hyperglycemia; E11.21 Type 2 diabetes mellitus with diabetic nephropathy; E11.52 Type 2 diabetes mellitus with diabetic peripheral angiopathy with gangrene; E11.69 Type 2 diabetes mellitus with other specified complication; M86.8X7 Other osteomyelitis, ankle and foot; I13.2 Hypertensive heart and chronic kidney disease with heart failure and with stage 5 chronic kidney disease, or end stage renal disease; E11.22 Type 2 diabetes mellitus with diabetic chronic kidney disease; I50.30 Unspecified diastolic (congestive) heart failure; N18.6 End stage renal disease; E78.5 Hyperlipidemia, unspecified; E66.01 Morbid (severe) obesity due to excess calories; F12.90 Cannabis use, unspecified, uncomplicated; F41.1 Generalized anxiety disorder; Z79.4 Long term (current) use of insulin; Z90.49 Acquired absence of other specified parts of digestive tract; Z99.2 Dependence on renal dialysis; Z87.891 Personal history of nicotine dependence; Z79.899 Other long term (current) drug therapy; Z86.14 Personal history of Methicillin resistant Staphylococcus aureus infection; Z79.2 Long term (current) use of antibiotics; Z68.41 Body mass index [BMI] 40.0-44.9, adult; Y83.5 Amputation of limb(s) as the cause of abnormal reaction of the patient, or of later complication, without mention of misadventure at the time of the procedure
CPT/HCPCS: 36416; 87070; 87075; 87077; 87102; 87186; G0463

== ENCOUNTER 2019-10-01 10:20 | Outpatient (CLI) | payer BC ==
[2019-10-01 12:28] LABS: BASOPHILS # (AUTO) 0.1 X10'3 (0-0.2); BASOPHILS % (AUTO) 0.8 % (0-1); EOSINOPHILS # (AUTO) 0.2 X10'3 (0-0.9); EOSINOPHILS % (AUTO) 1.1 % (0-6); LYMPHOCYTES # (AUTO) 0.9 X10'3 (1.1-4.8); LYMPHOCYTES % (AUTO) 5.5 % (21-51); MEAN CORPUSCULAR HEMOGLOBIN 26.7 PG (27.0-31.0); MEAN CORPUSCULAR HGB CONC 31.3 g/dL (33.0-36.5); MEAN CORPUSCULAR VOLUME 85.6 FL (78-98); MEAN PLATELET VOLUME 9.6 FL (7.4-10.4); MONOCYTES # (AUTO) 1.8 X10'3 (0-0.9); MONOCYTES % (AUTO) 10.5 % (2-12); NEUTROPHILS # (AUTO) 13.7 X10'3 (1.8-7.7); NEUTROPHILS % (AUTO) 82.1 % (42-75); PRE OP HEMATOCRIT 29.5 % (42.0-52.0); PRE OP PLATELET COUNT 425 X10'3 (140-440); RED BLOOD COUNT 3.45 X10'6 (4.70-6.10); RED CELL DISTRIBUTION WIDTH 19.8 % (11.5-14.5)
[2019-10-01 12:33] LABS: PRE OP HEMOGLOBIN 9.2 g/dL (14.0-17.9)
[2019-10-01 12:40] LABS: ALBUMIN/GLOBULIN RATIO 0.2 (1.1-1.5); ALKALINE PHOSPHATASE 394 IU/L (46-116); BLOOD UREA NITROGEN 70 MG/DL (7-18); BUN/CREATININE RATIO 7.6 (5.4-32.0); CALCIUM 6.1 MG/DL (8.5-10.1); CHLORIDE 101 MMOL/L (99-107); CREATININE 9.24 MG/DL (0.60-1.10); PRE OP ALT 22 U/L (30-65); PRE OP ANION GAP 10 (8-16); PRE OP AST 23 U/L (10-37); PRE OP BILIRUB, TOTAL 0.8 MG/DL (0.0-1.0); PRE OP GLUCOSE 125 MG/DL (70-104); PRE OP POTASSIUM 4.5 MMOL/L (3.4-5.1); PRE OP SODIUM 136 MMOL/L (135-145); TOTAL PROTEIN 6.8 G/DL (6.4-8.2); eGFR 6 ML/MIN
[2019-10-01 12:55] LABS: ANISOCYTOSIS 2+; HYPOCHROMASIA 1+; PLATELET ESTIMATE NORMAL
== END 2019-10-01 12:35 | disposition home or self-care (01) ==
LOC: WOUND CARE 10:20
PROVIDERS: ATTEND Nurse Practitioner Family
DX: T87.89 Other complications of amputation stump (principal); E11.621 Type 2 diabetes mellitus with foot ulcer; L97.512 Non-pressure chronic ulcer of other part of right foot with fat layer exposed; L97.522 Non-pressure chronic ulcer of other part of left foot with fat layer exposed; E11.43 Type 2 diabetes mellitus with diabetic autonomic (poly)neuropathy; E11.10 Type 2 diabetes mellitus with ketoacidosis without coma; E11.65 Type 2 diabetes mellitus with hyperglycemia; E11.21 Type 2 diabetes mellitus with diabetic nephropathy; E11.52 Type 2 diabetes mellitus with diabetic peripheral angiopathy with gangrene; I96 Gangrene, not elsewhere classified; E11.69 Type 2 diabetes mellitus with other specified complication; M86.8X7 Other osteomyelitis, ankle and foot; I13.2 Hypertensive heart and chronic kidney disease with heart failure and with stage 5 chronic kidney disease, or end stage renal disease; E11.22 Type 2 diabetes mellitus with diabetic chronic kidney disease; I50.30 Unspecified diastolic (congestive) heart failure; N18.6 End stage renal disease; E78.5 Hyperlipidemia, unspecified; E66.01 Morbid (severe) obesity due to excess calories; F12.90 Cannabis use, unspecified, uncomplicated; F41.1 Generalized anxiety disorder; Z79.4 Long term (current) use of insulin; Z90.49 Acquired absence of other specified parts of digestive tract; Z99.2 Dependence on renal dialysis; Z68.31 Body mass index [BMI] 31.0-31.9, adult; Z87.891 Personal history of nicotine dependence; Z79.899 Other long term (current) drug therapy; Z86.14 Personal history of Methicillin resistant Staphylococcus aureus infection; Z79.2 Long term (current) use of antibiotics; Z68.41 Body mass index [BMI] 40.0-44.9, adult; Y83.5 Amputation of limb(s) as the cause of abnormal reaction of the patient, or of later complication, without mention of misadventure at the time of the procedure
CPT/HCPCS: 36415; 80053; 82948; 85025; 87070; 87075; 87077; 87102; 87186; G0463

== ENCOUNTER 2019-10-02 06:01 | Inpatient (IN) | payer BC ==
[2019-10-02] VITALS (17 sets, daily range): BP systolic 103–128; BP diastolic 43–76
[~2019-10-02] VITALS: Ht 182.9 cm; Wt 139.6 kg
[~2019-10-02 06:01] MED LIST changes: +LIDOcaine 1% (10mg/ml) 2ml vial ONE; +famotidine 20mg tablet PO ONE; +ringers solution, lacted 1,000 ML IV SCH; +vancomycin 1,500 MG in NS 500ml IV soln IV ONE
[2019-10-02] MEDS ORDERED: ondansetron/PF 4mg/2ml inj ONE (06:33)
[2019-10-02] MEDS ORDERED: sevoflurane 250ml liquid IH ONE (07:58)
[2019-10-02] MEDS ORDERED: fentaNYL/PF 50MCG/1 ML 2ML syringe ONE (08:01)
[2019-10-02] MEDS ORDERED: midazolam 2 mg/2 ml injection ONE (08:02)
[2019-10-02] MEDS ORDERED: ePHEDrine 50MG/ML INJ. ONE (08:04)
[2019-10-02] MEDS ORDERED: propofol inj 20 ML IV ONE (08:04)
[2019-10-02] MEDS ORDERED: morphine 4 MG/ML inj SYRINge IV PRN (08:45)
[2019-10-02] MEDS ORDERED: ondansetron/PF 4mg/2ml inj IV PRN ×2 (08:45→12:50)
[2019-10-02] MEDS ORDERED: proCHLORperazine 10 MG/2 ml inj IV PRN (08:45)
[2019-10-02] MEDS ORDERED: ringers solution, lacted 1,000 ML IV SCH (08:45)
[2019-10-02] MEDS ORDERED: meperidine/PF 25mg/ml syringe IV PRN ×3 (08:45)
[2019-10-02] MEDS ORDERED: morphine 2 MG/ML inj. syringe IV PRN (08:45)
--- NOTE | 2019-10-02 09:25 | NUR ---
Received from OR via , accompanied by Anesthesiologist DR ARIZMENDI and report given by Anesthesiolgist. PT IS SLEEPING AND NOT ROUSING TO VOICE, SKIN WARM AND PINK, VSS, BILAT WOUND VAC PLACEMENT TO DISTAL FEET. PIV RIGHT HAND PATENT WITH NS, NO C/O PAIN.
[2019-10-02] MEDS ORDERED: HYDROcodone/acetaminophen 10/325mg tab PO ONE (10:00)
--- NOTE | 2019-10-02 10:30 | NUR ---
WHEN ATTEMPTING TO GET PT UP FOR DISCHARGE HOME, BOTTOM OF RIGHT FOOT STARTED BLEEDING (NOT PART OF THE SURGICAL SITE). NOTIFIED DR RODRIGUEZ. HAS CONCERNS OF PATIENT BEING DISCHARGED HOME DUE TO SAFETY AND FALL RISK.
--- NOTE | 2019-10-02 11:35 | NUR ---
Report called to receiving nurse. Transferred via [facility] . Special Issues communicated to receiving nurse ANILA DEVINE. PT MEETS DISCHARGE CRITERA. PLAN IS FOR PT TO BE ADMITTED TO SURGICAL FLOOR FOR PT EVAL AND MANAGEMENT, LS DIM, SCROTAL EDEMA, BILAT WOUND VAC PLACEMENT TO DISTAL FEET CD AND SENT TO [facility] CONTINUOUS, AREA ON BOTTOM OF RIGHT FOOT STOPPED BLEEDING, NO FURTHER INSTRUCTIONS FROM SUSSY AMIN GIVEN FOR PAIN, JUAN ICE WATER, NO C/O NAUSEA, IV PLACED IN RIGHT HAND 22G SL.
--- NOTE | 2019-10-02 11:37 | NUR ---
REPORT RECEIVED FROM JAE IN RECOVERY
[2019-10-02] MEDS ORDERED: acetaminophen 325mg tablet PO PRN (12:50)
[2019-10-02] MEDS ORDERED: MESSAGE TO PHARMACY PO ONE (12:50)
[2019-10-02] MEDS ORDERED: insulin Lispro (HumaLOG) vial - multi-dose SQ SCH (12:50)
[2019-10-02] MEDS ORDERED: dextrose 50%-water 50ml dispensing syringe IV PRN ×2 (12:50)
[2019-10-02] MEDS ORDERED: dextrose ORAL solution 15 GM/59 ML bottle PO PRN ×2 (12:50)
[2019-10-02] MEDS ORDERED: glucagon, human recombinant 1mg kit SUBCUT PRN (12:50)
--- NOTE | 2019-10-02 16:30 | NUR ---
BOTTOM OF LEFT FOOT REENFORCED TEGADERM WITH ANOTHER TEGADERM. WOUND CARE CALLED BEFORE NO CALL BACK
--- NOTE | 2019-10-02 17:00 | NUR ---
Patient in room [facility] 352. I have received report from Tia DEVINE and had the opportunity to ask questions and assume patient care.
--- NOTE | 2019-10-02 18:30 | NUR ---
Problems reprioritized. Patient report given, questions answered & plan of care reviewed with SYBIL BERRIOS.
[2019-10-02] MEDS: docusate sod 100mg capsule PO SCH (19:55)
[2019-10-02] MEDS: heparin, porcine 5000 units/ml vial SQ SCH (19:55)
[2019-10-02] MEDS: insulin glargine (Lantus) pen - multi-dose SQ SCH (21:00)
[2019-10-02] MEDS: HYDROcodone/acetaminophen 10/325mg tab PO PRN (21:51)
[2019-10-02] MEDS: CefTRIAXone/D5W-Rocephin 1gm 50 ML IV SCH (21:57)
[2019-10-03] VITALS: BP 132/80
[2019-10-03] MEDS: HYDROmorphone inj. 0.5 MG/0.5 ML DISP.SYRIN IV PRN ×5 (00:24→20:07)
--- NOTE | 2019-10-03 06:40 | NUR ---
Problems reprioritized. Patient report given, questions answered & plan of care reviewed with Kristina DEVINE.
[2019-10-03 06:46] LABS: ALANINE AMINOTRANSFERASE 15 U/L (12-78); ALBUMIN/GLOBULIN RATIO 0.2 (1.1-1.5); ALKALINE PHOSPHATASE 332 IU/L (46-116); ANION GAP 13 (8-16); ASPARTATE AMINO TRANSFERASE 18 U/L (10-37); BILIRUBIN,TOTAL 0.5 MG/DL (0.1-1.0); BLOOD UREA NITROGEN 73 MG/DL (7-18); BUN/CREATININE RATIO 7.4 (5.4-32.0); CALCIUM 6.2 MG/DL (8.5-10.1); CHLORIDE 100 MMOL/L (99-107); CREATININE 9.82 MG/DL (0.60-1.10); GLUCOSE 119 MG/DL (70-104); MAGNESIUM 1.6 MG/DL (1.5-2.4); PHOSPHORUS 9.6 MG/DL (2.3-4.5); POTASSIUM 4.3 MMOL/L (3.5-5.1); SODIUM 137 MMOL/L (135-145); TOTAL CARBON DIOXIDE 24.3 MMOL/L (24-32); TOTAL PROTEIN 6.3 G/DL (6.4-8.2); eGFR 6 ML/MIN
[2019-10-03 06:48] LABS: BASOPHILS # (AUTO) 0.1 X10'3 (0-0.2); BASOPHILS % (AUTO) 0.9 % (0-1); EOSINOPHILS # (AUTO) 0.2 X10'3 (0-0.9); EOSINOPHILS % (AUTO) 1.5 % (0-6); LYMPHOCYTES # (AUTO) 1.2 X10'3 (1.1-4.8); LYMPHOCYTES % (AUTO) 8.8 % (21-51); MEAN CORPUSCULAR HEMOGLOBIN 26.5 PG (27.0-31.0); MEAN CORPUSCULAR HGB CONC 30.9 g/dL (33.0-36.5); MEAN PLATELET VOLUME 9.4 FL (7.4-10.4); MONOCYTES # (AUTO) 1.3 X10'3 (0-0.9); NEUTROPHILS # (AUTO) 11.3 X10'3 (1.8-7.7); NEUTROPHILS % (AUTO) 79.8 % (42-75); PLATELET COUNT 434 X10'3 (140-440); RED BLOOD COUNT 3.03 X10'6 (4.70-6.10); WHITE BLOOD COUNT 14.2 X10'3 (4.5-11.0)
[2019-10-03 07:49] VITALS: BP 162/128
[2019-10-03] MEDS: CefTRIAXone/D5W-Rocephin 1gm 50 ML IV SCH (07:55)
[2019-10-03] MEDS: diltiazem CD 120mg capsule (once-daily) PO SCH (07:56)
[2019-10-03] MEDS: lisinopril 20mg tablet PO SCH (07:57)
[2019-10-03 07:58] VITALS: BP 151/51
[2019-10-03] MEDS: carVEDilol 12.5mg tablet PO SCH ×2 (07:58→20:00)
[2019-10-03] MEDS: furosemide 40mg tablet PO SCH ×3 (07:58→20:41)
[2019-10-03] MEDS: pantoprazole 40mg Tablet.DR PO SCH (07:59)
[2019-10-03] MEDS: docusate sod 100mg capsule PO SCH ×2 (07:59→20:00)
[2019-10-03] MEDS: metoclopramide 10mg tablet PO SCH ×3 (07:59→20:42)
[2019-10-03] MEDS: atorvastatin 20mg tablet PO SCH (08:00)
[2019-10-03] MEDS: folic acid 1mg tablet PO SCH (08:00)
[2019-10-03] MEDS: sevelamer carbonate 800mg tablet PO SCH ×3 (08:01→18:48)
[2019-10-03] MEDS: heparin, porcine 5000 units/ml vial SQ SCH ×2 (08:02→20:48)
[2019-10-03] MEDS: folic acid/vitamin B complex w/vitamin C 0.8mg tablet PO SCH (08:02)
[2019-10-03] MEDS: HYDROcodone/acetaminophen 10/325mg tab PO PRN (08:03)
--- NOTE | 2019-10-03 10:57 | NUR ---
Per bagger meat Trish they would like patient placed on a [employer] wound vac while in the hospital. Wound care is aware patient is being discharged today. Called DME and they don't have any at this time the will be contacting [facility] to get one. Trish RN with wound care aware.
--- NOTE | 2019-10-03 12:15 | NUR ---
Pt. yelling stating "YOU CANT CONTROL MY LIFE!!!" He wants to go pee and "the only way he can pee is if he stands up". Staff unable to stand pt. r/t weight bearing orders. Pt. is yelling at CNAs and Nursing staff. PT. paged to come [place] and work with ptCarlo Banda cell phone called, awaiting response or will call back. Spoke to Arpit and he said it is ok for pt. to go home and that he should have gone home yesterday but that his was refusing to take him home. Called , she is willing to pick pulling machine operator pt. today.
[2019-10-03 13:09] VITALS: BP 111/69
--- NOTE | 2019-10-03 14:38 | NUR ---
Pt with A1c 7.8. Pt s/p bilat TMA several weeks ago and both wounds are infected per H&P. Pt now s/p excision of necrotic tissue with placement of wound VAC. Written protein and DM education with referral to outpatient CDE course and RD contact information left in patient's chart. Pt with hx ESRD on PD, receiving routine phos binder. LBM 09/30, pt receiving routine bowel care. Will continue to follow and monitor need for additional protein. Recommendations: 1) Continue renal CHO controlled diet 2) Monitor need for ONS/additional protein 3) Routine bowel care 4) Wt per rx Addendum: 10/03/19 at [address] Amended: Links added.
--- NOTE | 2019-10-03 16:05 | NUR ---
DIALYSIS Pt refused to be connected to the cycler this morning, stating that he was "going home and would do it tonight". Checked back with patient after he was told that he would not be discharged home today and he refused again. This RN said that she could come back a little later to connect him to cycler and he replied "then you'd be coming back in the middle of the night to unhook me". When he was informed that he would stay connected until around 0800 when the harness and bag inspector usually arrives, he said " no. I've had a big day, I'll do it tomorrow". Patient counseled that PD would help with the massive amount of edema that he has and was questioned as to why he needed to be disconnected in the middle of the night, if he was not getting out of bed. He continues to refuse. Dr. Rahman made aware
--- NOTE | 2019-10-03 18:00 | NUR ---
Patient in room [facility] 352. I have received report from Kristina DEVINE and had the opportunity to ask questions and assume patient care.
--- NOTE | 2019-10-03 18:17 | NUR ---
Patient in room [facility] 352. I have received report from Kristina DEVINE and had the opportunity to ask questions and assume patient care.
--- NOTE | 2019-10-03 18:55 | NUR ---
Gave report to Catrina DEVINE.
[2019-10-03 20:00] VITALS: BP 122/50
[2019-10-03] MEDS: gabapentin 300mg capsule PO SCH (20:41)
[2019-10-03] MEDS: lactobacillus rhamnosus 10,000 MMU CELLS/CAPSULE PO SCH (20:41)
[2019-10-03] MEDS: insulin glargine (Lantus) pen - multi-dose SQ SCH (21:00)
[2019-10-04 00:06] VITALS: BP 96/58
[2019-10-04] MEDS: HYDROmorphone inj. 0.5 MG/0.5 ML DISP.SYRIN IV PRN ×8 (00:35→23:36)
--- NOTE | 2019-10-04 06:17 | NUR ---
Problems reprioritized. Patient report given, questions answered & plan of care reviewed with Libby DEVINE.
[2019-10-04 06:28] LABS: BASOPHILS # (AUTO) 0.1 X10'3 (0-0.2); BASOPHILS % (AUTO) 0.9 % (0-1); EOSINOPHILS # (AUTO) 0.2 X10'3 (0-0.9); EOSINOPHILS % (AUTO) 1.3 % (0-6); HEMATOCRIT 25.6 % (42.0-52.0); HEMOGLOBIN 7.9 g/dl (14.0-17.9); LYMPHOCYTES # (AUTO) 1.4 X10'3 (1.1-4.8); LYMPHOCYTES % (AUTO) 9.4 % (21-51); MEAN CORPUSCULAR HEMOGLOBIN 27.1 PG (27.0-31.0); MEAN CORPUSCULAR VOLUME 87.3 FL (78-98); MEAN PLATELET VOLUME 9.7 FL (7.4-10.4); MONOCYTES # (AUTO) 1.4 X10'3 (0-0.9); MONOCYTES % (AUTO) 9.5 % (2-12); NEUTROPHILS # (AUTO) 11.8 X10'3 (1.8-7.7); NEUTROPHILS % (AUTO) 78.9 % (42-75); PLATELET COUNT 390 X10'3 (140-440); RED BLOOD COUNT 2.93 X10'6 (4.70-6.10); RED CELL DISTRIBUTION WIDTH 20.1 % (11.5-14.5); WHITE BLOOD COUNT 14.9 X10'3 (4.5-11.0)
[2019-10-04 07:05] LABS: ALANINE AMINOTRANSFERASE 9 U/L (12-78); ALBUMIN/GLOBULIN RATIO 0.2 (1.1-1.5); ALKALINE PHOSPHATASE 292 IU/L (46-116); ANION GAP 15 (8-16); ASPARTATE AMINO TRANSFERASE 16 U/L (10-37); BILIRUBIN,TOTAL 0.5 MG/DL (0.1-1.0); BLOOD UREA NITROGEN 76 MG/DL (7-18); BUN/CREATININE RATIO 7.1 (5.4-32.0); CALCIUM 6.3 MG/DL (8.5-10.1); CHLORIDE 99 MMOL/L (99-107); CREATININE 10.66 MG/DL (0.60-1.10); GLUCOSE 119 MG/DL (70-104); MAGNESIUM 1.6 MG/DL (1.5-2.4); POTASSIUM 4.6 MMOL/L (3.5-5.1); SODIUM 137 MMOL/L (135-145); TOTAL CARBON DIOXIDE 23.5 MMOL/L (24-32); TOTAL PROTEIN 6.5 G/DL (6.4-8.2); eGFR 5 ML/MIN
[2019-10-04 07:06] LABS: PHOSPHORUS 10.1 MG/DL (2.3-4.5)
[2019-10-04 07:23] VITALS: BP 124/57
[2019-10-04 07:31] LABS: PLATELET ESTIMATE NORMAL
[2019-10-04 07:32] LABS: ANISOCYTOSIS 3+; HYPOCHROMASIA 1+; LARGE PLATELETS FEW; POLYCHROMASIA 1+; TEAR DROP CELLS 1+
[2019-10-04] MEDS: folic acid 1mg tablet PO SCH (07:42)
[2019-10-04] MEDS: lactobacillus rhamnosus 10,000 MMU CELLS/CAPSULE PO SCH ×2 (07:42→21:23)
[2019-10-04] MEDS: pantoprazole 40mg Tablet.DR PO SCH (07:42)
[2019-10-04] MEDS: metoclopramide 10mg tablet PO SCH ×3 (07:48→21:23)
[2019-10-04] MEDS: atorvastatin 20mg tablet PO SCH (07:48)
[2019-10-04] MEDS: furosemide 40mg tablet PO SCH ×3 (07:48→21:23)
[2019-10-04] MEDS: carVEDilol 12.5mg tablet PO SCH ×2 (07:48→21:23)
[2019-10-04] MEDS: lisinopril 20mg tablet PO SCH (07:49)
[2019-10-04] MEDS: diltiazem CD 120mg capsule (once-daily) PO SCH (07:49)
[2019-10-04] MEDS: heparin, porcine 5000 units/ml vial SQ SCH ×2 (07:51→20:00)
[2019-10-04] MEDS: sevelamer carbonate 800mg tablet PO SCH ×3 (07:55→17:41)
[2019-10-04] MEDS: folic acid/vitamin B complex w/vitamin C 0.8mg tablet PO SCH (07:55)
[2019-10-04] MEDS: CefTRIAXone/D5W-Rocephin 1gm 50 ML IV SCH (07:55)
[2019-10-04] MEDS: docusate sod 100mg capsule PO SCH ×2 (07:56→20:00)
[2019-10-04] MEDS ORDERED: heparin 1,000unit/ml 10ml vial 5,000 UNITS in perit. dialysis 7 & dext 2.5% 6,000 ML IP PRN ×5 (08:42→10:14)
[2019-10-04] MEDS: heparin 1,000unit/ml 10ml vial 5,000 UNITS in perit. dialysis 7 & dext 2.5% 6,000 ML IP SCH ×2 (10:57→19:35)
[2019-10-04 12:00] VITALS: BP 120/58
[2019-10-04 18:00] VITALS: BP 127/83
[2019-10-04] MEDS: insulin glargine (Lantus) pen - multi-dose SQ SCH (21:00)
--- NOTE | 2019-10-04 21:10 | NUR ---
Patient refused insulin stating that he had not required insulin his entire stay and he believed that his high BG was a "one-off thing." Educated on effects high blood sugars can have. Patient verbalized understanding.
[2019-10-04] MEDS: gabapentin 300mg capsule PO SCH (21:23)
[2019-10-05] VITALS: BP 138/75
[2019-10-05] MEDS: HYDROmorphone inj. 0.5 MG/0.5 ML DISP.SYRIN IV PRN ×6 (03:13→21:00)
[2019-10-05] MEDS: heparin 1,000unit/ml 10ml vial 5,000 UNITS in perit. dialysis 7 & dext 2.5% 6,000 ML IP SCH (04:29)
[2019-10-05 05:30] LABS: BASOPHILS # (AUTO) 0.1 X10'3 (0-0.2); BASOPHILS % (AUTO) 0.4 % (0-1); EOSINOPHILS # (AUTO) 0.2 X10'3 (0-0.9); EOSINOPHILS % (AUTO) 1.4 % (0-6); HEMATOCRIT 26.8 % (42.0-52.0); HEMOGLOBIN 8.3 g/dl (14.0-17.9); LYMPHOCYTES # (AUTO) 1.1 X10'3 (1.1-4.8); LYMPHOCYTES % (AUTO) 7.1 % (21-51); MEAN CORPUSCULAR HEMOGLOBIN 26.6 PG (27.0-31.0); MEAN CORPUSCULAR HGB CONC 30.8 g/dL (33.0-36.5); MEAN CORPUSCULAR VOLUME 86.6 FL (78-98); MEAN PLATELET VOLUME 9.7 FL (7.4-10.4); MONOCYTES # (AUTO) 1.6 X10'3 (0-0.9); MONOCYTES % (AUTO) 10.5 % (2-12); NEUTROPHILS # (AUTO) 12.6 X10'3 (1.8-7.7); NEUTROPHILS % (AUTO) 80.6 % (42-75); PLATELET COUNT 360 X10'3 (140-440); WHITE BLOOD COUNT 15.7 X10'3 (4.5-11.0)
[2019-10-05 05:37] LABS: ALANINE AMINOTRANSFERASE 8 U/L (12-78); ALBUMIN 0.9 G/DL (3.4-5.0); ALBUMIN/GLOBULIN RATIO 0.2 (1.1-1.5); ALKALINE PHOSPHATASE 248 IU/L (46-116); ANION GAP 13 (8-16); ASPARTATE AMINO TRANSFERASE 13 U/L (10-37); BILIRUBIN,TOTAL 0.4 MG/DL (0.1-1.0); BLOOD UREA NITROGEN 76 MG/DL (7-18); BUN/CREATININE RATIO 7.3 (5.4-32.0); CALCIUM 6.4 MG/DL (8.5-10.1); CHLORIDE 100 MMOL/L (99-107); CREATININE 10.42 MG/DL (0.60-1.10); GLUCOSE 153 MG/DL (70-104); MAGNESIUM 1.6 MG/DL (1.5-2.4); POTASSIUM 4.7 MMOL/L (3.5-5.1); SODIUM 138 MMOL/L (135-145); TOTAL CARBON DIOXIDE 25.3 MMOL/L (24-32); TOTAL PROTEIN 6.2 G/DL (6.4-8.2); eGFR 5 ML/MIN
[2019-10-05 05:39] LABS: PHOSPHORUS 9.4 MG/DL (2.3-4.5)
[2019-10-05 07:19] LABS: PLATELET ESTIMATE NORMAL
[2019-10-05 07:20] LABS: ANISOCYTOSIS 2+; HYPOCHROMASIA 1+; POLYCHROMASIA 1+; TARGET CELLS FEW; TEAR DROP CELLS FEW
[2019-10-05] MEDS: metoclopramide 10mg tablet PO SCH ×3 (07:32→21:03)
[2019-10-05] MEDS: furosemide 40mg tablet PO SCH ×3 (07:32→20:58)
[2019-10-05] MEDS: folic acid 1mg tablet PO SCH (07:32)
[2019-10-05] MEDS: pantoprazole 40mg Tablet.DR PO SCH (07:32)
[2019-10-05] MEDS: carVEDilol 12.5mg tablet PO SCH ×2 (07:33→21:03)
[2019-10-05] MEDS: lisinopril 20mg tablet PO SCH (07:33)
[2019-10-05] MEDS: docusate sod 100mg capsule PO SCH ×2 (07:33→21:03)
[2019-10-05] MEDS: atorvastatin 20mg tablet PO SCH (07:33)
[2019-10-05] MEDS: lactobacillus rhamnosus 10,000 MMU CELLS/CAPSULE PO SCH ×2 (07:33→21:02)
[2019-10-05] MEDS: diltiazem CD 120mg capsule (once-daily) PO SCH (07:36)
[2019-10-05] MEDS: heparin, porcine 5000 units/ml vial SQ SCH ×2 (07:40→21:03)
[2019-10-05 08:00] VITALS: BP 134/47
[2019-10-05] MEDS: folic acid/vitamin B complex w/vitamin C 0.8mg tablet PO SCH (08:00)
--- NOTE | 2019-10-05 08:00 | NUR ---
Patient is refusing insulin, MD aware.
[2019-10-05] MEDS: sevelamer carbonate 800mg tablet PO SCH ×3 (09:00→21:04)
[2019-10-05] MEDS: CefTRIAXone/D5W-Rocephin 1gm 50 ML IV SCH (09:01)
[2019-10-05 12:00] VITALS: BP 128/55
[2019-10-05 18:00] VITALS: BP 138/47
--- NOTE | 2019-10-05 18:20 | NUR ---
Patient in room [facility] 352. I have received report from Esther DEVINE and had the opportunity to ask questions and assume patient care. Patient just finishing up dialysis. Would like [place] sandwich. 1700 BS was 183, he does not want insulin until his BS is in the 200's. Says he checks it every night and never gives himself insulin when his BS is under 200. Will monitor with 2100 BS.
--- NOTE | 2019-10-05 18:29 | NUR ---
Problems reprioritized. Patient report given, questions answered & plan of care reviewed with Lisbet DEVINE.
[2019-10-05] MEDS: gabapentin 300mg capsule PO SCH (21:04)
[2019-10-05] MEDS: insulin glargine (Lantus) pen - multi-dose SQ SCH (21:09)
[2019-10-05] MEDS: HYDROcodone/acetaminophen 10/325mg tab PO PRN (23:49)
[2019-10-06] VITALS: BP 131/93
[2019-10-06] MEDS: HYDROmorphone inj. 0.5 MG/0.5 ML DISP.SYRIN IV PRN ×3 (01:06→07:12)
[2019-10-06] MEDS: HYDROcodone/acetaminophen 10/325mg tab PO PRN ×2 (03:27→11:52)
[2019-10-06 06:05] LABS: BASOPHILS # (AUTO) 0.1 X10'3 (0-0.2); BASOPHILS % (AUTO) 0.6 % (0-1); EOSINOPHILS # (AUTO) 0.3 X10'3 (0-0.9); EOSINOPHILS % (AUTO) 1.7 % (0-6); HEMATOCRIT 26.6 % (42.0-52.0); HEMOGLOBIN 8.1 g/dl (14.0-17.9); LYMPHOCYTES # (AUTO) 1.4 X10'3 (1.1-4.8); LYMPHOCYTES % (AUTO) 8.4 % (21-51); MEAN CORPUSCULAR HEMOGLOBIN 26.5 PG (27.0-31.0); MEAN CORPUSCULAR HGB CONC 30.6 g/dL (33.0-36.5); MEAN CORPUSCULAR VOLUME 86.4 FL (78-98); MEAN PLATELET VOLUME 9.7 FL (7.4-10.4); MONOCYTES # (AUTO) 1.8 X10'3 (0-0.9); MONOCYTES % (AUTO) 10.8 % (2-12); NEUTROPHILS % (AUTO) 78.5 % (42-75); PLATELET COUNT 361 X10'3 (140-440); RED BLOOD COUNT 3.08 X10'6 (4.70-6.10); RED CELL DISTRIBUTION WIDTH 19.9 % (11.5-14.5); WHITE BLOOD COUNT 16.5 X10'3 (4.5-11.0)
[2019-10-06 06:30] LABS: ALANINE AMINOTRANSFERASE 6 U/L (12-78); ALBUMIN 0.9 G/DL (3.4-5.0); ALBUMIN/GLOBULIN RATIO 0.2 (1.1-1.5); ALKALINE PHOSPHATASE 224 IU/L (46-116); ANION GAP 13 (8-16); ASPARTATE AMINO TRANSFERASE 13 U/L (10-37); BILIRUBIN,TOTAL 0.4 MG/DL (0.1-1.0); BLOOD UREA NITROGEN 72 MG/DL (7-18); BUN/CREATININE RATIO 7.1 (5.4-32.0); CALCIUM 6.3 MG/DL (8.5-10.1); CHLORIDE 100 MMOL/L (99-107); GLUCOSE 100 MG/DL (70-104); MAGNESIUM 1.7 MG/DL (1.5-2.4); PHOSPHORUS 8.8 MG/DL (2.3-4.5); POTASSIUM 4.1 MMOL/L (3.5-5.1); SODIUM 139 MMOL/L (135-145); TOTAL CARBON DIOXIDE 26.5 MMOL/L (24-32); TOTAL PROTEIN 6.4 G/DL (6.4-8.2); eGFR 6 ML/MIN
--- NOTE | 2019-10-06 06:52 | NUR ---
Problems reprioritized. Patient report given, questions answered & plan of care reviewed with Jacqui DEVINE.
--- NOTE | 2019-10-06 06:59 | NUR ---
Patient in room [facility] 352. I have received report from SYBIL Frausto and had the opportunity to ask questions and assume patient care.
--- NOTE | 2019-10-06 07:28 | NUR ---
Patient in room [facility] 352. I have received report from SYBIL Osman and had the opportunity to ask questions and assume patient care.
--- NOTE | 2019-10-06 07:30 | NUR ---
Problems reprioritized. Patient report given, questions answered & plan of care reviewed with SYBIL Hunter.
[2019-10-06] MEDS: lisinopril 20mg tablet PO SCH (08:00)
[2019-10-06] MEDS: docusate sod 100mg capsule PO SCH ×2 (08:00→20:05)
[2019-10-06] MEDS: heparin, porcine 5000 units/ml vial SQ SCH ×2 (08:00→20:05)
[2019-10-06] MEDS: diltiazem CD 120mg capsule (once-daily) PO SCH (08:00)
[2019-10-06] MEDS: pantoprazole 40mg Tablet.DR PO SCH (08:06)
[2019-10-06] MEDS: sevelamer carbonate 800mg tablet PO SCH ×3 (08:06→17:44)
[2019-10-06] MEDS: folic acid/vitamin B complex w/vitamin C 0.8mg tablet PO SCH (08:06)
[2019-10-06] MEDS: atorvastatin 20mg tablet PO SCH (08:06)
[2019-10-06] MEDS: carVEDilol 12.5mg tablet PO SCH ×2 (08:06→20:05)
[2019-10-06] MEDS: furosemide 40mg tablet PO SCH ×3 (08:06→21:56)
[2019-10-06] MEDS: metoclopramide 10mg tablet PO SCH ×3 (08:06→21:56)
[2019-10-06] MEDS: CefTRIAXone/D5W-Rocephin 1gm 50 ML IV SCH (08:06)
[2019-10-06] MEDS: folic acid 1mg tablet PO SCH (08:06)
[2019-10-06] MEDS: lactobacillus rhamnosus 10,000 MMU CELLS/CAPSULE PO SCH ×2 (08:06→20:05)
--- NOTE | 2019-10-06 09:09 | NUR ---
Problems reprioritized. Patient report given, questions answered & plan of care reviewed with SYBIL Sosa.
--- NOTE | 2019-10-06 10:00 | NUR ---
PT DOES NOT WANT INSULIN COVERAGE FOR BREAKFAST
--- NOTE | 2019-10-06 10:07 | NUR ---
received report from SYBIL Hunter. in to see pt his Iv is out and wound vac alarming. wound vac does not have a good connection. unable to get good suction with wound vac. wound vac removed and wet to dry dressing applied.
[2019-10-06 12:00] VITALS: BP 113/47
[2019-10-06] MEDS ORDERED: CADD PCA waste documentation MC SCH (12:45)
--- NOTE | 2019-10-06 12:55 | NUR ---
CALLED CASS [facility]AEZ TO CONFIRM LASIX 160MG TID ORDER. OK TO ADMIN PER CASS
[2019-10-06] MEDS: HYDROmorphone/NS 1 mg/ml CADD 50 ML IV SCH ×7 (13:00→23:00)
--- NOTE | 2019-10-06 13:55 | NUR ---
Reassessment: Pt receiving daily PD w/ bilateral feet wound vacs s/p debridement DX osteomyelitis per MD. Wound vacs not connecting removed today and to be replaced tomorrow per EMR. Pt refused insulin coverage for breakfast as well as bowel care today. PO fluctuating this admit 75-100% yesterday as well as 4 meals between 10/02-10/03 otherwise 0% PO. Overall not meeting needs given wounds, PD wt, and DX. Ensure high protein TIDWM added given additional protein needs; notified. New scaled wt 140kg making accurate BMI 42 up from 38 using original pt stated wt on admit. LBM 10/06 refused colace this AM. Phos 8.8 on renal/carb controlled diet and receiving routine phos binder. Will continue to monitor for additional protein needs. Recommendations: 1) Continue renal CHO controlled diet; encourage PO 2) ensure high protein TIDWM 3) MVI for wound healing 4) Routine bowel care 5) daily wts Addendum: 10/06/19 at [address] Amended: Links added.
--- NOTE | 2019-10-06 14:16 | NUR ---
PT REFUSING IN SULIN COVERAGE AFTER LUNCH
--- NOTE | 2019-10-06 18:25 | NUR ---
Problems reprioritized. Patient report given, questions answered & plan of care reviewed with SYBIL PEARSON.
--- NOTE | 2019-10-06 18:27 | NUR ---
Patient in room [facility] 352. I have received report from SYBIL ROTH and had the opportunity to ask questions and assume patient care.
[2019-10-06 20:00] VITALS: BP 132/49
[2019-10-06] MEDS: lactose-reduced food (Ensure High Protein) 237ml bottle PO SCH (20:07)
[2019-10-06] MEDS: insulin glargine (Lantus) pen - multi-dose SQ SCH (21:00)
[2019-10-06] MEDS: gabapentin 300mg capsule PO SCH (21:56)
[2019-10-06] MEDS: heparin 1,000unit/ml 10ml vial 5,000 UNITS in perit. dialysis 7 & dext 2.5% 6,000 ML IP SCH (22:37)
[2019-10-07] VITALS: BP 132/56
[2019-10-07] MEDS: HYDROmorphone/NS 1 mg/ml CADD 50 ML IV SCH ×9 (01:00→17:00)
[2019-10-07 05:11] LABS: BASOPHILS # (AUTO) 0.1 X10'3 (0-0.2); BASOPHILS % (AUTO) 0.9 % (0-1); EOSINOPHILS # (AUTO) 0.3 X10'3 (0-0.9); HEMATOCRIT 26.6 % (42.0-52.0); LYMPHOCYTES # (AUTO) 1.2 X10'3 (1.1-4.8); LYMPHOCYTES % (AUTO) 8.4 % (21-51); MEAN CORPUSCULAR HEMOGLOBIN 26.1 PG (27.0-31.0); MEAN CORPUSCULAR HGB CONC 30.2 g/dL (33.0-36.5); MEAN CORPUSCULAR VOLUME 86.4 FL (78-98); MEAN PLATELET VOLUME 9.5 FL (7.4-10.4); MONOCYTES # (AUTO) 1.6 X10'3 (0-0.9); MONOCYTES % (AUTO) 11.2 % (2-12); NEUTROPHILS # (AUTO) 11.4 X10'3 (1.8-7.7); NEUTROPHILS % (AUTO) 77.5 % (42-75); PLATELET COUNT 339 X10'3 (140-440); RED BLOOD COUNT 3.08 X10'6 (4.70-6.10); RED CELL DISTRIBUTION WIDTH 19.9 % (11.5-14.5); WHITE BLOOD COUNT 14.7 X10'3 (4.5-11.0)
[2019-10-07 05:23] LABS: ALANINE AMINOTRANSFERASE 6 U/L (12-78); ALBUMIN 0.9 G/DL (3.4-5.0); ALBUMIN/GLOBULIN RATIO 0.2 (1.1-1.5); ALKALINE PHOSPHATASE 202 IU/L (46-116); ANION GAP 12 (8-16); ASPARTATE AMINO TRANSFERASE 11 U/L (10-37); BILIRUBIN,TOTAL 0.4 MG/DL (0.1-1.0); BLOOD UREA NITROGEN 75 MG/DL (7-18); BUN/CREATININE RATIO 7.4 (5.4-32.0); CALCIUM 6.4 MG/DL (8.5-10.1); CHLORIDE 101 MMOL/L (99-107); GLUCOSE 137 MG/DL (70-104); MAGNESIUM 1.6 MG/DL (1.5-2.4); PHOSPHORUS 8.9 MG/DL (2.3-4.5); POTASSIUM 4.3 MMOL/L (3.5-5.1); SODIUM 139 MMOL/L (135-145); TOTAL CARBON DIOXIDE 26.5 MMOL/L (24-32); eGFR 6 ML/MIN
--- NOTE | 2019-10-07 06:23 | NUR ---
Problems reprioritized. Patient report given, questions answered & plan of care reviewed with SYBIL Davis.
[2019-10-07] MEDS: carVEDilol 12.5mg tablet PO SCH (08:00)
[2019-10-07] MEDS: diltiazem CD 120mg capsule (once-daily) PO SCH (08:00)
[2019-10-07] MEDS: heparin, porcine 5000 units/ml vial SQ SCH (08:00)
[2019-10-07] MEDS: lisinopril 20mg tablet PO SCH (08:00)
[2019-10-07] MEDS: docusate sod 100mg capsule PO SCH (08:00)
[2019-10-07] MEDS: lactose-reduced food (Ensure High Protein) 237ml bottle PO SCH ×3 (08:00→17:55)
[2019-10-07] MEDS: CefTRIAXone/D5W-Rocephin 1gm 50 ML IV SCH (08:30)
[2019-10-07] MEDS: pantoprazole 40mg Tablet.DR PO SCH (08:30)
[2019-10-07] MEDS: furosemide 40mg tablet PO SCH ×2 (08:30→13:12)
[2019-10-07] MEDS: folic acid/vitamin B complex w/vitamin C 0.8mg tablet PO SCH (08:31)
[2019-10-07] MEDS: folic acid 1mg tablet PO SCH (08:31)
[2019-10-07] MEDS: sevelamer carbonate 800mg tablet PO SCH ×3 (08:33→18:00)
[2019-10-07] MEDS: lactobacillus rhamnosus 10,000 MMU CELLS/CAPSULE PO SCH (08:33)
[2019-10-07] MEDS: metoclopramide 10mg tablet PO SCH ×2 (08:33→13:12)
[2019-10-07] MEDS: atorvastatin 20mg tablet PO SCH (08:33)
[2019-10-07 08:40] VITALS: BP 124/51
[2019-10-07 11:22] VITALS: BP 127/48
[2019-10-07] MEDS ORDERED: CEPH-572 PO (17:03)
--- NOTE | 2019-10-07 17:24 | NUR ---
patient refused 1700 accucheck. Addendum: 10/07/19 at 1724 by Olivia Pedroza RN Amended: Links added.
--- NOTE | 2019-10-07 17:49 | NUR ---
Dr. Munson said it is okay to dc patient since he is refusing dialysis and wound vac placement there is not much that we can do. Patients called primary RN to say that she is not capable of taking are of him and that it is not a safe discharge home because the only people at home are his children, since she works. Dr Munson aware. will notify case management in the AM.
--- NOTE | 2019-10-07 18:13 | NUR ---
Problems reprioritized. Patient report given, questions answered & plan of care reviewed with Khushi Jerez RN.
--- NOTE | 2019-10-07 18:23 | NUR ---
Patient in room [facility] 352. I have received report from SYBIL Davis and had the opportunity to ask questions and assume patient care. Addendum: 10/07/19 at 1824 by Anjelica Merlos RN Amended: Links added.
--- NOTE | 2019-10-07 18:56 | NUR ---
pt d/c today and taken to the lobby by staff at 1835. D/C instructions provided and copies given, educated about diabetes and stated he already knows. IV was d/c as well, pt brought his CPAP from home, prescription was given and will pick up man his medications from pharmacy of choice. will be picking up the patient at the lobby.
== END 2019-10-07 18:30 | disposition home health service (06) | DRG 856 ==
LOC: PAS 06:01 → SUR 3N 11:50 → OBSVTOIN 12:49
PROVIDERS: ADMIT Surgery; ATTEND Internal Medicine Critical Care Medicine
PROC: 0QBN0ZZ Excision of Right Metatarsal, Open Approach (ICD-10-PCS; 2019-10-02)
PROC: 3E1M39Z Irrigation of Peritoneal Cavity using Dialysate, Percutaneous Approach (ICD-10-PCS; 2019-10-02)
PROC: 0QBP0ZZ Excision of Left Metatarsal, Open Approach (ICD-10-PCS; principal; 2019-10-02 07:58)
PROC: 3E1M39Z Irrigation of Peritoneal Cavity using Dialysate, Percutaneous Approach (ICD-10-PCS; 2019-10-04)
PROC: 3E1M39Z Irrigation of Peritoneal Cavity using Dialysate, Percutaneous Approach (ICD-10-PCS; 2019-10-05)
PROC: 5A09357 Assistance with Respiratory Ventilation, Less than 24 Consecutive Hours, Continuous Positive Airway Pressure (ICD-10-PCS; 2019-10-06)
PROC: 3E1M39Z Irrigation of Peritoneal Cavity using Dialysate, Percutaneous Approach (ICD-10-PCS; 2019-10-06)
DX: T81.40XA Infection following a procedure, unspecified, initial encounter (principal); N18.6 End stage renal disease; I12.0 Hypertensive chronic kidney disease with stage 5 chronic kidney disease or end stage renal disease; Z68.41 Body mass index [BMI] 40.0-44.9, adult; M86.171 Other acute osteomyelitis, right ankle and foot; L03.116 Cellulitis of left lower limb; L03.115 Cellulitis of right lower limb; L02.612 Cutaneous abscess of left foot; L02.611 Cutaneous abscess of right foot; E11.69 Type 2 diabetes mellitus with other specified complication; E66.9 Obesity, unspecified; E11.22 Type 2 diabetes mellitus with diabetic chronic kidney disease; Y83.8 Other surgical procedures as the cause of abnormal reaction of the patient, or of later complication, without mention of misadventure at the time of the procedure; G47.30 Sleep apnea, unspecified; Z99.2 Dependence on renal dialysis; Z88.2 Allergy status to sulfonamides; Z79.899 Other long term (current) drug therapy; Z90.49 Acquired absence of other specified parts of digestive tract; Y92.89 Other specified places as the place of occurrence of the external cause
CPT/HCPCS: 36415; 80053; 82948; 83036; 83735; 84100; 85025; 97161; 97163; 97530; A4618; A6550; A7000; E1594; G0378; J0696; J1170; J1644; J1815; J2001; J2250; J2405; J2704; J3010; J3370; J7040; J7120; J8597

== ENCOUNTER 2019-10-09 07:55 | Day surgery (SDC) | payer BC ==
[~2019-10-09 07:55] MED LIST changes: +CEPH-572 PO; -LIDOcaine 1% (10mg/ml) 2ml vial ONE; -famotidine 20mg tablet PO ONE; -ringers solution, lacted 1,000 ML IV SCH; -vancomycin 1,500 MG in NS 500ml IV soln IV ONE
== END 2019-10-09 09:54 | disposition home or self-care (01) ==
LOC: WOUND CARE 07:55
PROVIDERS: ATTEND Nurse Practitioner
DX: T87.89 Other complications of amputation stump (principal); E11.621 Type 2 diabetes mellitus with foot ulcer; L97.512 Non-pressure chronic ulcer of other part of right foot with fat layer exposed; L97.522 Non-pressure chronic ulcer of other part of left foot with fat layer exposed; E11.43 Type 2 diabetes mellitus with diabetic autonomic (poly)neuropathy; E11.10 Type 2 diabetes mellitus with ketoacidosis without coma; E11.65 Type 2 diabetes mellitus with hyperglycemia; E11.21 Type 2 diabetes mellitus with diabetic nephropathy; E11.52 Type 2 diabetes mellitus with diabetic peripheral angiopathy with gangrene; I96 Gangrene, not elsewhere classified; E11.69 Type 2 diabetes mellitus with other specified complication; M86.8X7 Other osteomyelitis, ankle and foot; I13.2 Hypertensive heart and chronic kidney disease with heart failure and with stage 5 chronic kidney disease, or end stage renal disease; E11.22 Type 2 diabetes mellitus with diabetic chronic kidney disease; I50.30 Unspecified diastolic (congestive) heart failure; N18.6 End stage renal disease; E78.5 Hyperlipidemia, unspecified; E66.01 Morbid (severe) obesity due to excess calories; F12.90 Cannabis use, unspecified, uncomplicated; F41.1 Generalized anxiety disorder; Z79.4 Long term (current) use of insulin; Z90.49 Acquired absence of other specified parts of digestive tract; Z99.2 Dependence on renal dialysis; Z68.31 Body mass index [BMI] 31.0-31.9, adult; Z87.891 Personal history of nicotine dependence; Z79.899 Other long term (current) drug therapy; Z86.14 Personal history of Methicillin resistant Staphylococcus aureus infection; Z79.2 Long term (current) use of antibiotics; Z68.41 Body mass index [BMI] 40.0-44.9, adult; Y83.5 Amputation of limb(s) as the cause of abnormal reaction of the patient, or of later complication, without mention of misadventure at the time of the procedure
CPT/HCPCS: 36416; 82948; 97597

== ENCOUNTER 2019-10-11 08:20 | Outpatient (CLI) | payer BC ==
[~2019-10-11 08:20] MED LIST changes: -HYDR-4070 PO
[2019-10-11 09:46] LABS: FERRITIN 313 NG/ML (26-388)
[2019-10-11 09:53] LABS: IRON 15 UG/DL (53-167)
== END 2019-10-11 10:16 | disposition home or self-care (01) ==
LOC: EDSTATUS 08:20 → WOUND CARE 08:20
PROVIDERS: ATTEND Nurse Practitioner
DX: T87.89 Other complications of amputation stump (principal); E11.621 Type 2 diabetes mellitus with foot ulcer; L97.512 Non-pressure chronic ulcer of other part of right foot with fat layer exposed; L97.522 Non-pressure chronic ulcer of other part of left foot with fat layer exposed; E11.43 Type 2 diabetes mellitus with diabetic autonomic (poly)neuropathy; E11.10 Type 2 diabetes mellitus with ketoacidosis without coma; E11.65 Type 2 diabetes mellitus with hyperglycemia; E11.21 Type 2 diabetes mellitus with diabetic nephropathy; E11.52 Type 2 diabetes mellitus with diabetic peripheral angiopathy with gangrene; I96 Gangrene, not elsewhere classified; E11.69 Type 2 diabetes mellitus with other specified complication; M86.8X7 Other osteomyelitis, ankle and foot; I13.2 Hypertensive heart and chronic kidney disease with heart failure and with stage 5 chronic kidney disease, or end stage renal disease; E11.22 Type 2 diabetes mellitus with diabetic chronic kidney disease; I50.30 Unspecified diastolic (congestive) heart failure; N18.6 End stage renal disease; E78.5 Hyperlipidemia, unspecified; E66.01 Morbid (severe) obesity due to excess calories; F12.90 Cannabis use, unspecified, uncomplicated; F41.1 Generalized anxiety disorder; Z79.4 Long term (current) use of insulin; Z90.49 Acquired absence of other specified parts of digestive tract; Z99.2 Dependence on renal dialysis; Z68.31 Body mass index [BMI] 31.0-31.9, adult; Z87.891 Personal history of nicotine dependence; Z79.899 Other long term (current) drug therapy; Z86.14 Personal history of Methicillin resistant Staphylococcus aureus infection; Z79.2 Long term (current) use of antibiotics; Z68.41 Body mass index [BMI] 40.0-44.9, adult; Y83.5 Amputation of limb(s) as the cause of abnormal reaction of the patient, or of later complication, without mention of misadventure at the time of the procedure
CPT/HCPCS: 36415; 36416; 82728; 82948; 83540; G0463

== ENCOUNTER 2019-10-14 13:00 | Outpatient (CLI) | payer BC ==
[2019-10-14] MEDS ORDERED: gentamicin 0.1% topical ointment 15gm TP ONE (13:35)
== END 2019-10-14 14:02 | disposition home or self-care (01) ==
LOC: WOUND CARE 13:00 → EDSTATUS 13:00 → WOUND CARE 14:02
PROVIDERS: ATTEND Nurse Practitioner
DX: T87.89 Other complications of amputation stump (principal); E11.621 Type 2 diabetes mellitus with foot ulcer; L97.512 Non-pressure chronic ulcer of other part of right foot with fat layer exposed; L97.522 Non-pressure chronic ulcer of other part of left foot with fat layer exposed; E11.43 Type 2 diabetes mellitus with diabetic autonomic (poly)neuropathy; E11.10 Type 2 diabetes mellitus with ketoacidosis without coma; E11.65 Type 2 diabetes mellitus with hyperglycemia; E11.21 Type 2 diabetes mellitus with diabetic nephropathy; E11.52 Type 2 diabetes mellitus with diabetic peripheral angiopathy with gangrene; I96 Gangrene, not elsewhere classified; E11.69 Type 2 diabetes mellitus with other specified complication; M86.8X7 Other osteomyelitis, ankle and foot; I13.2 Hypertensive heart and chronic kidney disease with heart failure and with stage 5 chronic kidney disease, or end stage renal disease; E11.22 Type 2 diabetes mellitus with diabetic chronic kidney disease; I50.30 Unspecified diastolic (congestive) heart failure; N18.6 End stage renal disease; E78.5 Hyperlipidemia, unspecified; E66.01 Morbid (severe) obesity due to excess calories; F12.90 Cannabis use, unspecified, uncomplicated; F41.1 Generalized anxiety disorder; Z79.4 Long term (current) use of insulin; Z90.49 Acquired absence of other specified parts of digestive tract; Z99.2 Dependence on renal dialysis; Z68.31 Body mass index [BMI] 31.0-31.9, adult; Z87.891 Personal history of nicotine dependence; Z79.899 Other long term (current) drug therapy; Z86.14 Personal history of Methicillin resistant Staphylococcus aureus infection; Z79.2 Long term (current) use of antibiotics; Z68.41 Body mass index [BMI] 40.0-44.9, adult; Y83.5 Amputation of limb(s) as the cause of abnormal reaction of the patient, or of later complication, without mention of misadventure at the time of the procedure
CPT/HCPCS: 36416; 82948; G0463

== ENCOUNTER 2019-10-16 12:49 | Outpatient (CLI) | payer BC ==
[2019-10-16] MEDS ORDERED: gentamicin 0.1% topical ointment 15gm TP ONE (13:30)
== END 2019-10-16 14:04 | disposition home or self-care (01) ==
LOC: WOUND CARE 12:49 → EDSTATUS 13:00 → WOUND CARE 14:04
PROVIDERS: ATTEND Nurse Practitioner
DX: T87.89 Other complications of amputation stump (principal); E11.621 Type 2 diabetes mellitus with foot ulcer; L97.511 Non-pressure chronic ulcer of other part of right foot limited to breakdown of skin; L97.521 Non-pressure chronic ulcer of other part of left foot limited to breakdown of skin; E11.43 Type 2 diabetes mellitus with diabetic autonomic (poly)neuropathy; E11.10 Type 2 diabetes mellitus with ketoacidosis without coma; E11.65 Type 2 diabetes mellitus with hyperglycemia; E11.21 Type 2 diabetes mellitus with diabetic nephropathy; E11.52 Type 2 diabetes mellitus with diabetic peripheral angiopathy with gangrene; I96 Gangrene, not elsewhere classified; E11.69 Type 2 diabetes mellitus with other specified complication; M86.8X7 Other osteomyelitis, ankle and foot; I13.2 Hypertensive heart and chronic kidney disease with heart failure and with stage 5 chronic kidney disease, or end stage renal disease; E11.22 Type 2 diabetes mellitus with diabetic chronic kidney disease; I50.30 Unspecified diastolic (congestive) heart failure; N18.6 End stage renal disease; E78.5 Hyperlipidemia, unspecified; E66.01 Morbid (severe) obesity due to excess calories; F12.90 Cannabis use, unspecified, uncomplicated; F41.1 Generalized anxiety disorder; Z79.4 Long term (current) use of insulin; Z90.49 Acquired absence of other specified parts of digestive tract; Z99.2 Dependence on renal dialysis; Z87.891 Personal history of nicotine dependence; Z79.899 Other long term (current) drug therapy; Z86.14 Personal history of Methicillin resistant Staphylococcus aureus infection; Z68.38 Body mass index [BMI] 38.0-38.9, adult; Z79.2 Long term (current) use of antibiotics; Y83.5 Amputation of limb(s) as the cause of abnormal reaction of the patient, or of later complication, without mention of misadventure at the time of the procedure
CPT/HCPCS: 36416; 82948; G0463

== ENCOUNTER 2019-10-23 12:53 | Outpatient (CLI) | payer BC ==
[~2019-10-23 12:53] MED LIST changes: -CEPH-572 PO
[2019-10-23] MEDS ORDERED: gentamicin 0.1% topical ointment 15gm TP ONE (13:19)
== END 2019-10-23 13:45 | disposition home or self-care (01) ==
LOC: WOUND CARE 12:53 → EDSTATUS 13:00 → WOUND CARE 13:45
PROVIDERS: ATTEND Nurse Practitioner
DX: T87.89 Other complications of amputation stump (principal); E11.621 Type 2 diabetes mellitus with foot ulcer; L97.512 Non-pressure chronic ulcer of other part of right foot with fat layer exposed; L97.522 Non-pressure chronic ulcer of other part of left foot with fat layer exposed; E11.43 Type 2 diabetes mellitus with diabetic autonomic (poly)neuropathy; E11.10 Type 2 diabetes mellitus with ketoacidosis without coma; E11.65 Type 2 diabetes mellitus with hyperglycemia; E11.21 Type 2 diabetes mellitus with diabetic nephropathy; E11.52 Type 2 diabetes mellitus with diabetic peripheral angiopathy with gangrene; I96 Gangrene, not elsewhere classified; E11.69 Type 2 diabetes mellitus with other specified complication; M86.8X7 Other osteomyelitis, ankle and foot; I13.2 Hypertensive heart and chronic kidney disease with heart failure and with stage 5 chronic kidney disease, or end stage renal disease; E11.22 Type 2 diabetes mellitus with diabetic chronic kidney disease; I50.30 Unspecified diastolic (congestive) heart failure; N18.6 End stage renal disease; E78.5 Hyperlipidemia, unspecified; E66.01 Morbid (severe) obesity due to excess calories; F12.90 Cannabis use, unspecified, uncomplicated; F41.1 Generalized anxiety disorder; Z79.4 Long term (current) use of insulin; Z90.49 Acquired absence of other specified parts of digestive tract; Z99.2 Dependence on renal dialysis; Z87.891 Personal history of nicotine dependence; Z79.899 Other long term (current) drug therapy; Z86.14 Personal history of Methicillin resistant Staphylococcus aureus infection; Z68.41 Body mass index [BMI] 40.0-44.9, adult; Z79.2 Long term (current) use of antibiotics; Y83.5 Amputation of limb(s) as the cause of abnormal reaction of the patient, or of later complication, without mention of misadventure at the time of the procedure
CPT/HCPCS: 36416; 82948; G0463

== ENCOUNTER 2019-11-01 13:15 | Outpatient (CLI) | payer BC, MEDICAID, OTHER | END 2019-11-01 14:36 | disposition home or self-care (01) | LOC: WOUND CARE 13:15 | PROVIDERS: ATTEND Nurse Practitioner | DX: T87.89 Other complications of amputation stump (principal); E11.621 Type 2 diabetes mellitus with foot ulcer; L97.512 Non-pressure chronic ulcer of other part of right foot with fat layer exposed; L97.522 Non-pressure chronic ulcer of other part of left foot with fat layer exposed; E11.43 Type 2 diabetes mellitus with diabetic autonomic (poly)neuropathy; E11.10 Type 2 diabetes mellitus with ketoacidosis without coma; E11.65 Type 2 diabetes mellitus with hyperglycemia; E11.21 Type 2 diabetes mellitus with diabetic nephropathy; E11.52 Type 2 diabetes mellitus with diabetic peripheral angiopathy with gangrene; I96 Gangrene, not elsewhere classified; E11.69 Type 2 diabetes mellitus with other specified complication; M86.8X7 Other osteomyelitis, ankle and foot; I13.2 Hypertensive heart and chronic kidney disease with heart failure and with stage 5 chronic kidney disease, or end stage renal disease; E11.22 Type 2 diabetes mellitus with diabetic chronic kidney disease; I50.30 Unspecified diastolic (congestive) heart failure; N18.6 End stage renal disease; E78.5 Hyperlipidemia, unspecified; E66.01 Morbid (severe) obesity due to excess calories; F12.90 Cannabis use, unspecified, uncomplicated; F41.1 Generalized anxiety disorder; Z79.4 Long term (current) use of insulin; Z90.49 Acquired absence of other specified parts of digestive tract; Z99.2 Dependence on renal dialysis; Z87.891 Personal history of nicotine dependence; Z79.899 Other long term (current) drug therapy; Z86.14 Personal history of Methicillin resistant Staphylococcus aureus infection; Z68.41 Body mass index [BMI] 40.0-44.9, adult; Z79.2 Long term (current) use of antibiotics; Y83.5 Amputation of limb(s) as the cause of abnormal reaction of the patient, or of later complication, without mention of misadventure at the time of the procedure | CPT/HCPCS: 82948; G0463 ==

== ENCOUNTER 2019-11-04 09:30 | Inpatient (IN) | payer OTHER ==
[~2019-11-04] VITALS: Ht 182.9 cm; Wt 122.0 kg
[~2019-11-04 09:30] MED LIST changes: +DOPamine/D5W 400mg/250ml bag IV ONE
[2019-11-04] MEDS ORDERED: normal saline 1000ml 1,000 ML IV SCH (10:14)
[2019-11-04] MEDS ORDERED: potassium CL 10mEq/100ml bag 100 ML IV PRN ×2 (10:15)
[2019-11-04] MEDS ORDERED: ondansetron/PF 4mg/2ml inj IV PRN (10:15)
[2019-11-04] MEDS ORDERED: potassium Cl 20 mEq SR tablet PO PRN ×2 (10:15)
[2019-11-04] MEDS ORDERED: magnesium Cl slow-release 64mg tablet PO PRN (10:15)
[2019-11-04] MEDS ORDERED: magnesium 2GM in 50ml NS 50 ML IV PRN (10:15)
[2019-11-04] MEDS ORDERED: magnesium 4gm in 100ml NS 100 ML IV PRN (10:15)
[2019-11-04] MEDS ORDERED: acetaminophen 325mg tablet PO PRN (10:15)
[2019-11-04] MEDS ORDERED: morphine 2 MG/ML inj. syringe IV PRN (10:15)
[2019-11-04] MEDS ORDERED: glucagon, human recombinant 1mg kit SUBCUT PRN (11:40)
[2019-11-04] MEDS ORDERED: MESSAGE TO PHARMACY PO ONE (11:40)
[2019-11-04] MEDS ORDERED: dextrose ORAL solution 15 GM/59 ML bottle PO PRN ×2 (11:40)
[2019-11-04] MEDS ORDERED: dextrose 50%-water 50ml dispensing syringe IV PRN ×2 (11:40)
--- NOTE | 2019-11-04 11:40 | NUR ---
Received report from wound care nurse Yamilka DEVINE. Awaiting arrival to room 4010A.
[2019-11-04 11:55] VITALS: BP 120/64
[2019-11-04] MEDS ORDERED: HYDROcodone/acetaminophen 10/325mg tab PO PRN (12:20)
[2019-11-04 12:38] LABS: BASOPHILS # (AUTO) 0.1 X10'3 (0-0.2); BASOPHILS % (AUTO) 0.4 % (0-1); EOSINOPHILS # (AUTO) 0.1 X10'3 (0-0.9); EOSINOPHILS % (AUTO) 0.3 % (0-6); HEMATOCRIT 31.6 % (42.0-52.0); HEMOGLOBIN 9.5 g/dl (14.0-17.9); LYMPHOCYTES # (AUTO) 1.2 X10'3 (1.1-4.8); LYMPHOCYTES % (AUTO) 6.6 % (21-51); MEAN CORPUSCULAR HGB CONC 30.1 g/dL (33.0-36.5); MEAN CORPUSCULAR VOLUME 86.5 FL (78-98); MEAN PLATELET VOLUME 9.8 FL (7.4-10.4); MONOCYTES # (AUTO) 1.1 X10'3 (0-0.9); MONOCYTES % (AUTO) 6.2 % (2-12); NEUTROPHILS # (AUTO) 15.8 X10'3 (1.8-7.7); NEUTROPHILS % (AUTO) 86.5 % (42-75); PLATELET COUNT 254 X10'3 (140-440); RED BLOOD COUNT 3.65 X10'6 (4.70-6.10); RED CELL DISTRIBUTION WIDTH 19.6 % (11.5-14.5); WHITE BLOOD COUNT 18.3 X10'3 (4.5-11.0)
[2019-11-04 13:01] LABS: ALANINE AMINOTRANSFERASE 40 U/L (12-78); ALBUMIN 1.3 G/DL (3.4-5.0); ALBUMIN/GLOBULIN RATIO 0.2 (1.1-1.5); ALKALINE PHOSPHATASE 268 IU/L (46-116); ANION GAP 16 (8-16); ASPARTATE AMINO TRANSFERASE 20 U/L (10-37); BILIRUBIN,TOTAL 0.5 MG/DL (0.1-1.0); BLOOD UREA NITROGEN 84 MG/DL (7-18); BUN/CREATININE RATIO 7.5 (5.4-32.0); CALCIUM 7.2 MG/DL (8.5-10.1); CHLORIDE 95 MMOL/L (99-107); CREATININE 11.15 MG/DL (0.60-1.10); GLUCOSE 186 MG/DL (70-104); POTASSIUM 4.2 MMOL/L (3.5-5.1); SODIUM 134 MMOL/L (135-145); TOTAL CARBON DIOXIDE 23.1 MMOL/L (24-32); TOTAL PROTEIN 7.9 G/DL (6.4-8.2); eGFR 5 ML/MIN
--- NOTE | 2019-11-04 13:38 | NUR ---
Dr. Lopez informed of WBC of 18.3. stated she will be calling Dr. Naranjo.
[2019-11-04] MEDS ORDERED: DEXT IP PRN ×2 (15:30→15:51)
[2019-11-04] MEDS ORDERED: PERIT DIALYSIS IP PRN ×2 (15:30→15:51)
[2019-11-04] MEDS ORDERED: heparin 1,000unit/ml 10ml vial 5,000 UNITS in perit. dialysis 7 & dext 2.5% 6,000 ML IP PRN (15:51)
[2019-11-04] MEDS ORDERED: perit dialysis 13 & dext 2.5% 6,000 ML IP PRN (15:55)
[2019-11-04] MEDS ORDERED: VANCOmycin 1250MG/NS 250ml Bag 250 ML IV SCH (16:00)
[2019-11-04] MEDS ORDERED: VANCOMYCIN 1,500MG inj. 1,500 MG in normal saline 500ml IV soln 500 ML IV PRN (16:30)
[2019-11-04] MEDS ORDERED: VANCOMYCIN 750MG IV in NS 250 ML IV PRN (16:30)
[2019-11-04] MEDS ORDERED: metolazone 2.5mg tablet PO PRN (17:00)
[2019-11-04] MEDS: CefTRIAXone 2gm/D5W 50ml 50 ML IV SCH (17:27)
[2019-11-04] MEDS: clindamycin 150mg capsule PO SCH ×2 (17:28→20:00)
--- NOTE | 2019-11-04 17:35 | NUR ---
DM Consult: A1C 8.9 up from 07 June 2019. Pt admit w/ bilateral feet necrotic non-healing DM ulcers. Pt has bilateral TMA amputations both feet w/ hx ESRD on PD and is requesting PD during day r/t anxiety per MD note. PD solution likely to effect Glu in addition to wounds. Current pt stated wt 122.7kg; pending scaled wt this admit though pt is visibly obese during RD visit. Pt seen by RD for written/verbal high protein/DM diet eds w/ RD contact information provided. Pt very passive during RD visit and eds. Pt reports does not enjoy hospital food only eats turkey sandwich BIDLD and scrambled eggs at breakfast normally and requests these items during visit. First meal PO 75% avg per EMR. Pt does not like cream of wheat, oatmeal, and is agreeable to renal fruit cup BIDLD. Pt reported unsure if sandwich alone is enough protein given needs; RD educated pt on increased protein needs given PD hx, non-healing bilateral feet wounds, and DM. Pt agreeable to strawberry Pramod smoothie BIDBD as well as double proteins w/ turkey sandwiches BIDLD given wound healing needs. Dietary and MD notified. R BKA scheduled for Monday per MD note. Will continue to monitor. Rec: 1. continue carb controlled/renal diet 2. honor pt food preferences; see subjective; turkey sandwich BIDLD w/ double protein, renal fruit cup BIDLD 3. strawberry Pramod smoothie BIDBD 4. MVI for wound healing needs 5. routine bowel care 6. scaled wts Addendum: 11/04/19 at [address] Amended: Links added.
[2019-11-04 18:00] VITALS: BP 133/66
--- NOTE | 2019-11-04 18:07 | NUR ---
Problems reprioritized. Patient report given, questions answered & plan of care reviewed with Fany DEVINE.
[2019-11-04] MEDS: sevelamer carbonate 800mg tablet PO SCH (18:24)
[2019-11-04] MEDS: K and/or MAG REPLACEMENT MC SCH (20:00)
[2019-11-04] MEDS: docusate sod 100mg capsule PO SCH (20:00)
[2019-11-04] MEDS: potassium Cl 20 mEq SR tablet PO SCH (20:00)
[2019-11-04] MEDS: HYDROmorphone 1 mg/ml syringe IV PRN (20:38)
[2019-11-04] MEDS: insulin glargine (Lantus) pen - multi-dose SQ SCH (21:00)
[2019-11-04 22:00] VITALS: BP 94/73
[2019-11-04] MEDS: metoclopramide 10mg tablet PO SCH (22:00)
[2019-11-04] MEDS: gabapentin 400mg capsule PO SCH (22:00)
[2019-11-04] MEDS: carVEDilol 12.5mg tablet PO SCH (22:00)
[2019-11-04] MEDS: furosemide 40mg tablet PO SCH (22:00)
[2019-11-05] MEDS: HYDROmorphone 1 mg/ml syringe IV PRN ×6 (00:23→21:06)
[2019-11-05] MEDS: clindamycin 150mg capsule PO SCH ×4 (03:02→22:10)
[2019-11-05 05:15] LABS: ALBUMIN 1.1 G/DL (3.4-5.0); ANION GAP 17 (8-16); BLOOD UREA NITROGEN 87 MG/DL (7-18); BUN/CREATININE RATIO 7.6 (5.4-32.0); CALCIUM 7.3 MG/DL (8.5-10.1); CHLORIDE 96 MMOL/L (99-107); CREATININE 11.41 MG/DL (0.60-1.10); GLUCOSE 118 MG/DL (70-104); MAGNESIUM 1.7 MG/DL (1.5-2.4); SODIUM 133 MMOL/L (135-145); TOTAL CARBON DIOXIDE 20.1 MMOL/L (24-32); eGFR 5 ML/MIN
[2019-11-05 05:25] LABS: BASOPHILS # (AUTO) 0.1 X10'3 (0-0.2); BASOPHILS % (AUTO) 0.9 % (0-1); EOSINOPHILS # (AUTO) 0.1 X10'3 (0-0.9); EOSINOPHILS % (AUTO) 0.9 % (0-6); HEMOGLOBIN 8.9 g/dl (14.0-17.9); LYMPHOCYTES # (AUTO) 1.2 X10'3 (1.1-4.8); LYMPHOCYTES % (AUTO) 7.4 % (21-51); MEAN CORPUSCULAR HEMOGLOBIN 26.4 PG (27.0-31.0); MEAN CORPUSCULAR HGB CONC 30.5 g/dL (33.0-36.5); MEAN CORPUSCULAR VOLUME 86.5 FL (78-98); MEAN PLATELET VOLUME 9.7 FL (7.4-10.4); MONOCYTES # (AUTO) 1.3 X10'3 (0-0.9); NEUTROPHILS # (AUTO) 13.1 X10'3 (1.8-7.7); NEUTROPHILS % (AUTO) 82.8 % (42-75); PLATELET COUNT 207 X10'3 (140-440); RED BLOOD COUNT 3.35 X10'6 (4.70-6.10); RED CELL DISTRIBUTION WIDTH 19.9 % (11.5-14.5); WHITE BLOOD COUNT 15.8 X10'3 (4.5-11.0)
[2019-11-05 06:00] VITALS: BP 90/64
[2019-11-05] MEDS: K and/or MAG REPLACEMENT MC SCH ×2 (06:51→20:00)
[2019-11-05 07:09] LABS: ANISOCYTOSIS 2+; PLATELET ESTIMATE NORMAL
[2019-11-05] MEDS: JUVEN Smoothie Arginine/Glut./Ca2+Bmb (Juven 19.3pkt) 240ml cup PO SCH ×2 (07:30→17:30)
[2019-11-05] MEDS: Dakins solution (1/4 strength) 473ml solution TP SCH (08:00)
[2019-11-05] MEDS: folic acid/vitamin B complex w/vitamin C 0.8mg tablet PO SCH (08:00)
[2019-11-05] MEDS: lisinopril 20mg tablet PO SCH (08:00)
[2019-11-05] MEDS: furosemide 40mg tablet PO SCH ×3 (08:00→21:00)
[2019-11-05] MEDS: folic acid 1mg tablet PO SCH (08:00)
[2019-11-05] MEDS: CefTRIAXone 2gm/D5W 50ml 50 ML IV SCH (08:23)
[2019-11-05] MEDS ORDERED: VANCOMYCIN 1,500MG inj. 1,500 MG in normal saline 500ml IV soln 500 ML IV PRN (08:25)
[2019-11-05] MEDS ORDERED: VANCOMYCIN 750MG IV in NS 250 ML IV PRN (08:25)
[2019-11-05] MEDS: pantoprazole 40mg Tablet.DR PO SCH (08:30)
[2019-11-05] MEDS: docusate sod 100mg capsule PO SCH ×2 (08:31→20:00)
[2019-11-05] MEDS: atorvastatin 20mg tablet PO SCH (08:32)
[2019-11-05] MEDS: potassium Cl 20 mEq SR tablet PO SCH ×2 (08:32→19:44)
[2019-11-05] MEDS: metoclopramide 10mg tablet PO SCH ×3 (08:33→22:10)
[2019-11-05] MEDS: sevelamer carbonate 800mg tablet PO SCH ×3 (08:33→18:30)
[2019-11-05 10:00] VITALS: BP_SYST 136; BP_SYST 85; BP_DIAS 44; BP_DIAS 63
[2019-11-05] MEDS ORDERED: VANCOMYCIN 1,500MG inj. 1,500 MG in normal saline 500ml IV soln 500 ML IV ONE (10:30)
[2019-11-05 12:30] VITALS: BP 137/73
[2019-11-05] MEDS: carVEDilol 12.5mg tablet PO SCH ×2 (12:42→19:45)
[2019-11-05] MEDS: diltiazem CD 120mg capsule (once-daily) PO SCH (12:42)
--- NOTE | 2019-11-05 14:40 | NUR ---
[facility] LINE INFORMATION: REF: [id number] LOT: [id number] EXP: 07/02/2020
[2019-11-05 17:15] VITALS: BP 131/108
[2019-11-05 17:20] VITALS: BP 94/31
[2019-11-05 19:35] VITALS: BP 118/50
[2019-11-05] MEDS: lactobacillus rhamnosus 10,000 MMU CELLS/CAPSULE PO SCH (19:44)
[2019-11-05] MEDS: insulin glargine (Lantus) pen - multi-dose SQ SCH (21:00)
[2019-11-05] MEDS: gabapentin 400mg capsule PO SCH (22:10)
[2019-11-06] VITALS (24 sets, daily range): BP systolic 62–141; BP diastolic 35–85
[2019-11-06] MEDS: HYDROmorphone 1 mg/ml syringe IV PRN (01:07)
--- NOTE | 2019-11-06 02:10 | NUR ---
pt alert and oriented asking for something to drink,blood sugar checked 28,dex 4 2 bottles given,bp 74/45 mmhg called rapid response Lencho SLITTING MACHINE OPERATOR here labs drawn.0220 bs rechecked 108.bp 103/84.
[2019-11-06] MEDS: VANCOMYCIN LEVEL IV SCH (03:00)
[2019-11-06 03:03] LABS: BASOPHILS # (AUTO) 0.1 X10'3 (0-0.2); BASOPHILS % (AUTO) 0.4 % (0-1); EOSINOPHILS # (AUTO) 0.1 X10'3 (0-0.9); EOSINOPHILS % (AUTO) 0.6 % (0-6); LYMPHOCYTES # (AUTO) 0.8 X10'3 (1.1-4.8); LYMPHOCYTES % (AUTO) 4.5 % (21-51); MEAN CORPUSCULAR HGB CONC 30.9 g/dL (33.0-36.5); MEAN CORPUSCULAR VOLUME 87.4 FL (78-98); MEAN PLATELET VOLUME 9.7 FL (7.4-10.4); MONOCYTES % (AUTO) 5.7 % (2-12); NEUTROPHILS # (AUTO) 15.3 X10'3 (1.8-7.7); NEUTROPHILS % (AUTO) 88.8 % (42-75); PLATELET COUNT 174 X10'3 (140-440); RED BLOOD COUNT 2.97 X10'6 (4.70-6.10); RED CELL DISTRIBUTION WIDTH 19.5 % (11.5-14.5); WHITE BLOOD COUNT 17.2 X10'3 (4.5-11.0)
[2019-11-06 03:15] LABS: ALANINE AMINOTRANSFERASE 21 U/L (12-78); ALBUMIN 0.9 G/DL (3.4-5.0); ALBUMIN/GLOBULIN RATIO 0.2 (1.1-1.5); ALKALINE PHOSPHATASE 181 IU/L (46-116); ANION GAP 14 (8-16); ASPARTATE AMINO TRANSFERASE 13 U/L (10-37); BILIRUBIN,TOTAL 0.4 MG/DL (0.1-1.0); BLOOD UREA NITROGEN 85 MG/DL (7-18); BUN/CREATININE RATIO 7.6 (5.4-32.0); CALCIUM 6.7 MG/DL (8.5-10.1); CHLORIDE 99 MMOL/L (99-107); CREATININE 11.17 MG/DL (0.60-1.10); GLUCOSE 161 MG/DL (70-104); MAGNESIUM 1.6 MG/DL (1.5-2.4); PHOSPHORUS 8.6 MG/DL (2.3-4.5); POTASSIUM 4.5 MMOL/L (3.5-5.1); SODIUM 135 MMOL/L (135-145); TOTAL CARBON DIOXIDE 21.7 MMOL/L (24-32); TOTAL PROTEIN 5.8 G/DL (6.4-8.2); VANCOMYCIN,TROUGH 18.3 UG/ML (6.0-14.0); eGFR 5 ML/MIN
[2019-11-06 03:28] LABS: PLATELET ESTIMATE NORMAL
[2019-11-06 03:31] LABS: ANISOCYTOSIS 2+; PARTIAL THROMBOPLASTIN TIME 33 SECONDS (22-32); SCHISTOCYTES 1+
[2019-11-06] MEDS: clindamycin 150mg capsule PO SCH ×4 (03:40→20:57)
--- NOTE | 2019-11-06 04:27 | NUR ---
pt alert and oriented,blood sugar checked 205.bp 62/46,informed July FROTHING MACHINE OPERATOR advise to give 250 nss bolus,called rapid July FROTHING MACHINE OPERATOR and Lencho critical nurse here,narcan,albumin,dopamine given by rapid response team,re checked blood sugar no result d50 50 ml given per July FROTHING MACHINE OPERATOR.0500 BP 139/45 mmhg,report given to uriel curriculum advisory teacher,transferred pt per bed with belongings.Called ex Catrina.
[2019-11-06] MEDS ORDERED: naloxone 0.4 mg/ml inj ONE (04:39)
[2019-11-06] MEDS ORDERED: albumin (Human) 5% 250ml 250 ML IV ONE (04:40)
[2019-11-06] MEDS ORDERED: naloxone 0.4 mg/ml inj IV PRN (04:40)
[2019-11-06] MEDS ORDERED: naloxone 0.4 mg/ml inj IV ONE (04:50)
--- NOTE | 2019-11-06 05:20 | NUR ---
Patient in room ORTHO 4006. I have received report from SYBIL Soares and had the opportunity to ask questions and assume patient care. Arrived from Ortho/Neuro on hospital bed.
[2019-11-06] MEDS: Dextrose 10%-water IV solution 1,000 ML IV SCH ×2 (05:31→15:25)
[2019-11-06] MEDS: DOPamine 400mg/D5W 250ml 250 ML IV SCH (05:32)
[2019-11-06] MEDS ORDERED: naloxone 0.4 mg/ml inj IV STA (05:38)
[2019-11-06] MEDS ORDERED: NORepinephrine 8mg/ 250ml NS 250 ML IV ONE (05:46)
[2019-11-06 05:51] LABS: ABG BASE EXCESS -8.1 mmol/L (-2.0-3.0); ABG HCO3 15.9 mmol/L (22.0-26.0); ABG OXYGEN SATURATION 93.3 % (95-98); ABG PCO2 (T) 26.7 mmHg (35.0-45.0); ABG PH (T) 7.389 (7.350-7.450); ABG PO2 (T) 73.8 mmHg (83-108); FCOHb 0.3 % (0.5-1.5); FMetHb 0.2 % (0.3-1.12); FO2Hb 92.8 % (94-100); PATIENT TEMPERATURE 36.7; TOTAL HEMOGLOBIN 8.8 G/dl (14.0-17.9)
[2019-11-06] MEDS: NORepinephrine 8mg/ 250ml NS 250 ML IV SCH ×2 (05:58→08:31)
[2019-11-06] MEDS: naloxone 2mg/2ml inj 2 MG in normal saline 500ml IV soln 498 ML IV SCH (05:58)
--- NOTE | 2019-11-06 06:20 | NUR ---
Problems reprioritized. Patient report given, questions answered & plan of care reviewed with SYBIL White.
[2019-11-06 06:39] LABS: ALBUMIN 1.2 G/DL (3.4-5.0); ANION GAP 18 (8-16); BLOOD UREA NITROGEN 86 MG/DL (7-18); BUN/CREATININE RATIO 7.7 (5.4-32.0); CALCIUM 7.2 MG/DL (8.5-10.1); CHLORIDE 96 MMOL/L (99-107); CREATININE 11.21 MG/DL (0.60-1.10); GLUCOSE 238 MG/DL (70-104); POTASSIUM 4.6 MMOL/L (3.5-5.1); SODIUM 134 MMOL/L (135-145); TOTAL CARBON DIOXIDE 19.9 MMOL/L (24-32); TROPONIN I < 0.04 NG/ML (0.0-0.05); eGFR 5 ML/MIN
[2019-11-06] MEDS: JUVEN Smoothie Arginine/Glut./Ca2+Bmb (Juven 19.3pkt) 240ml cup PO SCH ×2 (07:30→17:30)
--- NOTE | 2019-11-06 07:30 | NUR ---
Patient in room CICU 2008. I have received report from Farrah DEVINE and had the opportunity to ask questions and assume patient care.
--- NOTE | 2019-11-06 07:31 | NUR ---
Patient was received by Ortho right before shift change. He was bradycardic (Junctional according to report) down to the low 40s, Hypotensive with systolic pressure down to the 40s (in some cases unable to read a pressure), Unresponsive, skin mottled, unable to get an O2 sat (on 6L), RR 18 (shallow breathing), Blood Glucose as low as 10. Patient was started on a Narcan drip (due to Dilaudid being given earlier for pain), Dopamine drip, Levo drip, and given D50 pushes while being started on a D10 drip to correct BG. Patient is currently able to answer questions (what month/year, Who is president, Birthday, Middle name) all correctly. Blood pressure is stable at 140s/50s, HR is in the high 80s, O2 sat is 98-100 on 6L, RR 18 (normal). Bilat Lungs sound clear. Skin is still mottled in fingertips, patches on forearms, patches on thighs and lower legs. Will start to wean down levo as able, and then Dopamine as able.
[2019-11-06] MEDS: potassium Cl 20 mEq SR tablet PO SCH ×2 (07:59→20:00)
[2019-11-06] MEDS: docusate sod 100mg capsule PO SCH ×2 (07:59→20:00)
[2019-11-06] MEDS: lisinopril 20mg tablet PO SCH (07:59)
[2019-11-06] MEDS: atorvastatin 20mg tablet PO SCH (08:00)
[2019-11-06] MEDS: pantoprazole 40mg Tablet.DR PO SCH (08:00)
[2019-11-06] MEDS: Dakins solution (1/4 strength) 473ml solution TP SCH (08:00)
[2019-11-06] MEDS: folic acid 1mg tablet PO SCH (08:00)
[2019-11-06] MEDS: diltiazem CD 120mg capsule (once-daily) PO SCH (08:00)
[2019-11-06] MEDS: lactobacillus rhamnosus 10,000 MMU CELLS/CAPSULE PO SCH ×2 (08:00→20:00)
[2019-11-06] MEDS: metoclopramide 10mg tablet PO SCH ×3 (08:00→21:00)
[2019-11-06] MEDS: sevelamer carbonate 800mg tablet PO SCH ×4 (08:00→18:00)
[2019-11-06] MEDS: folic acid/vitamin B complex w/vitamin C 0.8mg tablet PO SCH (08:00)
[2019-11-06] MEDS: K and/or MAG REPLACEMENT MC SCH ×2 (08:00→20:00)
[2019-11-06] MEDS: carVEDilol 12.5mg tablet PO SCH ×2 (08:00→20:00)
[2019-11-06] MEDS: CefTRIAXone 2gm/D5W 50ml 50 ML IV SCH (08:24)
[2019-11-06] MEDS: furosemide 40mg tablet PO SCH ×3 (08:53→21:00)
[2019-11-06] MEDS ORDERED: sevoflurane 250ml liquid IH ONE (09:20)
[2019-11-06] MEDS ORDERED: VANCOMYCIN 1,500MG inj. 1,500 MG in normal saline 500ml IV soln 500 ML IV PRN ×2 (11:50→13:30)
[2019-11-06] MEDS ORDERED: VANCOMYCIN 750MG IV in NS 250 ML IV PRN (11:50)
[2019-11-06] MEDS ORDERED: LIDOcaine 1% (10mg/ml) 2ml vial ONE (20:47)
[2019-11-06] MEDS: gabapentin 100mg capsule PO SCH (21:00)
[2019-11-06] MEDS: insulin glargine (Lantus) pen - multi-dose SQ SCH (21:00)
[2019-11-06] MEDS ORDERED: fentaNYL /PF 50mcg/ml 5ml ampule ONE (21:06)
[2019-11-06] MEDS ORDERED: midazolam 2 mg/2 ml injection ONE (21:06)
[2019-11-06] MEDS ORDERED: rocuronium 10mg/ml inj IV ONE (21:14)
[2019-11-06] MEDS ORDERED: propofol inj 20 ML IV ONE (21:14)
[2019-11-06] MEDS ORDERED: LIDOcaine 2% (20mg/ml) 5ml vial ONE (21:14)
[2019-11-06] MEDS ORDERED: ipratropium/albuterol 3ml nebule NEB PRN (22:50)
[2019-11-06 22:53] LABS: BASOPHILS # (AUTO) 0.1 X10'3 (0-0.2); BASOPHILS % (AUTO) 0.5 % (0-1); EOSINOPHILS # (AUTO) 0.1 X10'3 (0-0.9); EOSINOPHILS % (AUTO) 0.4 % (0-6); HEMATOCRIT 27.5 % (42.0-52.0); HEMOGLOBIN 8.4 g/dl (14.0-17.9); LYMPHOCYTES # (AUTO) 1.1 X10'3 (1.1-4.8); LYMPHOCYTES % (AUTO) 5.2 % (21-51); MEAN CORPUSCULAR HEMOGLOBIN 26.4 PG (27.0-31.0); MEAN CORPUSCULAR HGB CONC 30.6 g/dL (33.0-36.5); MEAN CORPUSCULAR VOLUME 86.2 FL (78-98); MEAN PLATELET VOLUME 9.8 FL (7.4-10.4); MONOCYTES # (AUTO) 1.5 X10'3 (0-0.9); MONOCYTES % (AUTO) 7.1 % (2-12); NEUTROPHILS % (AUTO) 86.8 % (42-75); PLATELET COUNT 217 X10'3 (140-440); RED CELL DISTRIBUTION WIDTH 19.4 % (11.5-14.5); WHITE BLOOD COUNT 20.7 X10'3 (4.5-11.0)
[2019-11-06] MEDS ORDERED: epiNEPHrine 1 mg/ml inj ONE (22:56)
[2019-11-06] MEDS ORDERED: albumin (Human) 5% 250ml 500 ML IV ONE (22:56)
[2019-11-06 23:05] LABS: ALANINE AMINOTRANSFERASE 14 U/L (12-78); ALBUMIN 1.3 G/DL (3.4-5.0); ALBUMIN/GLOBULIN RATIO 0.3 (1.1-1.5); ALKALINE PHOSPHATASE 150 IU/L (46-116); ANION GAP 15 (8-16); ASPARTATE AMINO TRANSFERASE 17 U/L (10-37); BILIRUBIN,TOTAL 0.5 MG/DL (0.1-1.0); BLOOD UREA NITROGEN 86 MG/DL (7-18); BUN/CREATININE RATIO 7.7 (5.4-32.0); CALCIUM 6.8 MG/DL (8.5-10.1); CHLORIDE 99 MMOL/L (99-107); GLUCOSE 194 MG/DL (70-104); POTASSIUM 4.4 MMOL/L (3.5-5.1); SODIUM 135 MMOL/L (135-145); TOTAL CARBON DIOXIDE 20.6 MMOL/L (24-32); TOTAL PROTEIN 6.4 G/DL (6.4-8.2); eGFR 5 ML/MIN
[2019-11-06] MEDS: midazolam 2 mg/2 ml injection IV PRN (23:19)
[2019-11-06 23:43] LABS: PLATELET ESTIMATE NORMAL
[2019-11-06 23:45] LABS: ANISOCYTOSIS 2+; HYPOCHROMASIA 1+; MICROCYTOSIS 1+
[2019-11-07] VITALS (25 sets, daily range): BP systolic 97–138; BP diastolic 31–104
[2019-11-07 00:05] LABS: ABG BASE EXCESS -7.2 mmol/L (-2.0-3.0); ABG HCO3 18.2 mmol/L (22.0-26.0); ABG PCO2 (T) 34.9 mmHg (35.0-45.0); ABG PH (T) 7.331 (7.350-7.450); ABG PO2 (T) 89.2 mmHg (83-108); FCOHb 0.3 % (0.5-1.5); FMetHb 0.2 % (0.3-1.12); FO2Hb 95.5 % (94-100); PATIENT TEMPERATURE 36.1; PEEP 5 cm H2O; RESPIRATORY RATE 12 b/min; TIDAL VOLUME 650 mL; TOTAL HEMOGLOBIN 9.5 G/dl (14.0-17.9)
[2019-11-07] MEDS: midazolam 2 mg/2 ml injection IV PRN ×7 (00:12→07:34)
[2019-11-07] MEDS: fentaNYL/PF 50MCG/1 ML 2ML syringe IV PRN ×4 (00:23→07:34)
[2019-11-07] MEDS: naloxone 2mg/2ml inj 2 MG in normal saline 500ml IV soln 498 ML IV SCH (01:24)
[2019-11-07] MEDS: Dextrose 10%-water IV solution 1,000 ML IV SCH ×3 (01:24→21:25)
[2019-11-07] MEDS: hydrocortisone sod succ/PF 100mg/2ml inj. IV SCH ×4 (02:02→22:09)
[2019-11-07] MEDS: clindamycin 150mg capsule PO SCH ×4 (02:02→22:33)
[2019-11-07] MEDS: VANCOMYCIN LEVEL IV SCH (03:54)
[2019-11-07] MEDS: DOPamine 400mg/D5W 250ml 250 ML IV SCH (03:55)
[2019-11-07] MEDS: NORepinephrine 8mg/ 250ml NS 250 ML IV SCH (04:04)
[2019-11-07 04:16] LABS: BASOPHILS % (AUTO) 0.2 % (0-1); EOSINOPHILS % (AUTO) 0.2 % (0-6); HEMOGLOBIN 8.7 g/dl (14.0-17.9); LYMPHOCYTES # (AUTO) 0.6 X10'3 (1.1-4.8); LYMPHOCYTES % (AUTO) 2.8 % (21-51); MEAN CORPUSCULAR HEMOGLOBIN 26.8 PG (27.0-31.0); MEAN CORPUSCULAR HGB CONC 30.8 g/dL (33.0-36.5); MEAN PLATELET VOLUME 9.7 FL (7.4-10.4); MONOCYTES # (AUTO) 1.1 X10'3 (0-0.9); MONOCYTES % (AUTO) 5.3 % (2-12); NEUTROPHILS # (AUTO) 19.1 X10'3 (1.8-7.7); NEUTROPHILS % (AUTO) 91.5 % (42-75); PLATELET COUNT 196 X10'3 (140-440); RED BLOOD COUNT 3.22 X10'6 (4.70-6.10); RED CELL DISTRIBUTION WIDTH 19.2 % (11.5-14.5); WHITE BLOOD COUNT 20.8 X10'3 (4.5-11.0)
[2019-11-07 04:36] LABS: ABG HCO3 18.6 mmol/L (22.0-26.0); ABG OXYGEN SATURATION 97.3 % (95-98); ABG PCO2 (T) 36.6 mmHg (35.0-45.0); ABG PH (T) 7.322 (7.350-7.450); ALLEN'S TEST POSITIVE; FCOHb 0.5 % (0.5-1.5); FMetHb 0.3 % (0.3-1.12); FO2Hb 96.5 % (94-100); PATIENT TEMPERATURE 36.6; PEEP 5 cm H2O; RESPIRATORY RATE 12 b/min; TIDAL VOLUME 650 mL; TOTAL HEMOGLOBIN 9.7 G/dl (14.0-17.9)
[2019-11-07 04:40] LABS: ALANINE AMINOTRANSFERASE 16 U/L (12-78); ALBUMIN 1.2 G/DL (3.4-5.0); ALBUMIN/GLOBULIN RATIO 0.3 (1.1-1.5); ALKALINE PHOSPHATASE 148 IU/L (46-116); ANION GAP 12 (8-16); ASPARTATE AMINO TRANSFERASE 15 U/L (10-37); BILIRUBIN,TOTAL 0.8 MG/DL (0.1-1.0); BLOOD UREA NITROGEN 81 MG/DL (7-18); BUN/CREATININE RATIO 7.6 (5.4-32.0); CHLORIDE 99 MMOL/L (99-107); CREATININE 10.69 MG/DL (0.60-1.10); GLUCOSE 233 MG/DL (70-104); MAGNESIUM 1.7 MG/DL (1.5-2.4); POTASSIUM 4.4 MMOL/L (3.5-5.1); SODIUM 134 MMOL/L (135-145); TOTAL CARBON DIOXIDE 22.7 MMOL/L (24-32); TOTAL PROTEIN 5.8 G/DL (6.4-8.2); eGFR 5 ML/MIN
[2019-11-07 04:42] LABS: PHOSPHORUS 9.1 MG/DL (2.3-4.5)
[2019-11-07] MEDS: docusate sod 100mg capsule PO SCH ×2 (08:00→20:00)
[2019-11-07] MEDS: carVEDilol 12.5mg tablet PO SCH ×2 (08:00→23:06)
[2019-11-07] MEDS: K and/or MAG REPLACEMENT MC SCH ×2 (08:00→20:00)
[2019-11-07] MEDS: sevelamer carbonate 800mg tablet PO SCH ×3 (08:02→22:17)
[2019-11-07] MEDS: atorvastatin 20mg tablet PO SCH (08:03)
[2019-11-07] MEDS: lisinopril 20mg tablet PO SCH (08:03)
[2019-11-07] MEDS: potassium Cl 20 mEq SR tablet PO SCH ×2 (08:03→20:00)
[2019-11-07] MEDS: pantoprazole 40mg Tablet.DR PO SCH (08:03)
[2019-11-07] MEDS: metoclopramide 10mg tablet PO SCH ×3 (08:03→21:00)
[2019-11-07] MEDS: folic acid 1mg tablet PO SCH (08:03)
[2019-11-07] MEDS: folic acid/vitamin B complex w/vitamin C 0.8mg tablet PO SCH (08:04)
[2019-11-07] MEDS: CefTRIAXone 2gm/D5W 50ml 50 ML IV SCH (08:04)
[2019-11-07] MEDS: lactobacillus rhamnosus 10,000 MMU CELLS/CAPSULE PO SCH ×2 (08:04→20:00)
[2019-11-07] MEDS: JUVEN Smoothie Arginine/Glut./Ca2+Bmb (Juven 19.3pkt) 240ml cup PO SCH ×2 (08:33→17:30)
[2019-11-07] MEDS: furosemide 40mg tablet PO SCH ×3 (10:10→22:31)
[2019-11-07] MEDS: insulin Lispro (HumaLOG) vial - multi-dose SQ SCH ×3 (11:02→19:41)
--- NOTE | 2019-11-07 12:20 | NUR ---
Patient has been extubated to NC 2L. Able to speak. No stridor.
[2019-11-07] MEDS: Dakins solution (1/4 strength) 473ml solution TP SCH (15:50)
--- NOTE | 2019-11-07 16:00 | NUR ---
Patient has been seen by Dr. Dukes for his heart in the past. Dr. Naranjo wanted to know if he has seen a chemical laboratory scientist before, and would like to be updated to call about a consult. Addendum: 11/07/19 at 1635 by Christopher Joyce RN Dr. Dukes's number: [phone] and [phone]. Dr. Naranjo has been updated.
--- NOTE | 2019-11-07 16:27 | NUR ---
Patient's Mother (Iliana) - [phone] Patient's (Catrina) - [phone] Call Catrina if there are any changes or updates.
[2019-11-07] MEDS ORDERED: DEXT IP PRN (16:50)
[2019-11-07] MEDS ORDERED: PERIT DIALYSIS IP PRN (16:50)
[2019-11-07 17:59] LABS: ALANINE AMINOTRANSFERASE 14 U/L (12-78); ALBUMIN 1.2 G/DL (3.4-5.0); ALBUMIN/GLOBULIN RATIO 0.2 (1.1-1.5); ALKALINE PHOSPHATASE 143 IU/L (46-116); ANION GAP 15 (8-16); ASPARTATE AMINO TRANSFERASE 10 U/L (10-37); BILIRUBIN,TOTAL 0.4 MG/DL (0.1-1.0); BLOOD UREA NITROGEN 76 MG/DL (7-18); BUN/CREATININE RATIO 7.6 (5.4-32.0); CALCIUM 7.4 MG/DL (8.5-10.1); CHLORIDE 99 MMOL/L (99-107); GLUCOSE 238 MG/DL (70-104); SODIUM 136 MMOL/L (135-145); TOTAL CARBON DIOXIDE 21.8 MMOL/L (24-32); TOTAL PROTEIN 6.1 G/DL (6.4-8.2); eGFR 6 ML/MIN
--- NOTE | 2019-11-07 18:15 | NUR ---
Patient in room CICU 2008. I have received report from KAMRAN DEVINE and had the opportunity to ask questions and assume patient care.
[2019-11-07] MEDS: insulin glargine (Lantus) pen - multi-dose SQ SCH (22:07)
--- NOTE | 2019-11-07 22:46 | NUR ---
HAVE BEEN TRYING TO ADMINISTER PTS NIGHT TIME MEDS, PT IS RESISTANT TO TAKING THEM, AND HAS REFUSED FOR THE TIME BEING OF TAKING THE REST OF HIS MEDS. I WILL TRY AGAIN TO ADMINISTER THEM AND SEE IF HE IS WILLING.
[2019-11-07] MEDS: gabapentin 100mg capsule PO SCH (23:07)
[2019-11-08] VITALS (18 sets, daily range): BP systolic 82–146; BP diastolic 39–88
--- NOTE | 2019-11-08 01:07 | NUR ---
Pt having trouble voiding, bladder scanned says he has 506 ml in bladder, pt resistant to being straight cathed, giving him some more time to try and void.
[2019-11-08] MEDS: mineral oil/petrolatum ophthal oint EACHEYE SCH ×3 (02:00→13:37)
[2019-11-08] MEDS: clindamycin 150mg capsule PO SCH ×3 (02:07→13:27)
[2019-11-08] MEDS: hydrocortisone sod succ/PF 100mg/2ml inj. IV SCH ×3 (02:07→13:34)
[2019-11-08] MEDS: VANCOMYCIN LEVEL IV SCH (03:00)
[2019-11-08 03:33] LABS: BASOPHILS # (AUTO) 0.1 X10'3 (0-0.2); BASOPHILS % (AUTO) 0.3 % (0-1); EOSINOPHILS % (AUTO) 0 % (0-6); HEMOGLOBIN 8.6 g/dl (14.0-17.9); LYMPHOCYTES # (AUTO) 0.5 X10'3 (1.1-4.8); LYMPHOCYTES % (AUTO) 2.2 % (21-51); MEAN CORPUSCULAR HEMOGLOBIN 26.5 PG (27.0-31.0); MEAN CORPUSCULAR HGB CONC 30.8 g/dL (33.0-36.5); MEAN PLATELET VOLUME 9.5 FL (7.4-10.4); MONOCYTES # (AUTO) 1.2 X10'3 (0-0.9); MONOCYTES % (AUTO) 5.4 % (2-12); NEUTROPHILS # (AUTO) 20.3 X10'3 (1.8-7.7); NEUTROPHILS % (AUTO) 92.1 % (42-75); PLATELET COUNT 168 X10'3 (140-440); RED BLOOD COUNT 3.25 X10'6 (4.70-6.10); RED CELL DISTRIBUTION WIDTH 19.5 % (11.5-14.5)
[2019-11-08 03:47] LABS: ALANINE AMINOTRANSFERASE 11 U/L (12-78); ALBUMIN 1.1 G/DL (3.4-5.0); ALBUMIN/GLOBULIN RATIO 0.2 (1.1-1.5); ALKALINE PHOSPHATASE 131 IU/L (46-116); ANION GAP 12 (8-16); ASPARTATE AMINO TRANSFERASE 13 U/L (10-37); BILIRUBIN,TOTAL 0.4 MG/DL (0.1-1.0); BLOOD UREA NITROGEN 71 MG/DL (7-18); BUN/CREATININE RATIO 7.6 (5.4-32.0); CALCIUM 7.4 MG/DL (8.5-10.1); CHLORIDE 99 MMOL/L (99-107); GLUCOSE 137 MG/DL (70-104); MAGNESIUM 1.5 MG/DL (1.5-2.4); PHOSPHORUS 7.8 MG/DL (2.3-4.5); POTASSIUM 3.6 MMOL/L (3.5-5.1); SODIUM 135 MMOL/L (135-145); TOTAL CARBON DIOXIDE 23.8 MMOL/L (24-32); TOTAL PROTEIN 5.7 G/DL (6.4-8.2); eGFR 6 ML/MIN
[2019-11-08] MEDS ORDERED: HYDROmorphone 2mg tablet PO PRN (04:05)
[2019-11-08 04:08] LABS: PLATELET ESTIMATE NORMAL
[2019-11-08 04:10] LABS: ANISOCYTOSIS 2+; HYPOCHROMASIA 1+
[2019-11-08] MEDS: DOPamine 400mg/D5W 250ml 250 ML IV SCH (04:55)
--- NOTE | 2019-11-08 05:43 | NUR ---
pt had a 4 beat run of v-tach around 0415, and a 6 beat run of v-tach around 0515, called and informed Márquez about this and the pts new labs for the morning. No new orders received.
--- NOTE | 2019-11-08 06:37 | NUR ---
Problems reprioritized. Patient report given, questions answered & plan of care reviewed with LEILANI DEVINE.
[2019-11-08] MEDS: JUVEN Smoothie Arginine/Glut./Ca2+Bmb (Juven 19.3pkt) 240ml cup PO SCH (07:30)
[2019-11-08] MEDS: CefTRIAXone 2gm/D5W 50ml 50 ML IV SCH (07:33)
[2019-11-08] MEDS: Dakins solution (1/4 strength) 473ml solution TP SCH (08:00)
[2019-11-08] MEDS: K and/or MAG REPLACEMENT MC SCH (08:00)
[2019-11-08] MEDS: docusate sod 100mg capsule PO SCH (08:00)
[2019-11-08] MEDS ORDERED: VANCOMYCIN 750MG IV in NS 250 ML IV ONE (09:00)
[2019-11-08] MEDS: sevelamer carbonate 800mg tablet PO SCH ×2 (09:48→13:27)
[2019-11-08] MEDS: pantoprazole 40mg Tablet.DR PO SCH (09:49)
[2019-11-08] MEDS: atorvastatin 20mg tablet PO SCH (09:49)
[2019-11-08] MEDS: lactobacillus rhamnosus 10,000 MMU CELLS/CAPSULE PO SCH (09:49)
[2019-11-08] MEDS: potassium Cl 20 mEq SR tablet PO SCH (09:50)
[2019-11-08] MEDS: folic acid 1mg tablet PO SCH (09:50)
[2019-11-08] MEDS: metoclopramide 10mg tablet PO SCH ×2 (09:50→13:27)
[2019-11-08] MEDS: furosemide 40mg tablet PO SCH ×2 (09:51→13:26)
[2019-11-08] MEDS: folic acid/vitamin B complex w/vitamin C 0.8mg tablet PO SCH (09:51)
[2019-11-08] MEDS: lisinopril 20mg tablet PO SCH (09:51)
[2019-11-08] MEDS: carVEDilol 12.5mg tablet PO SCH (09:52)
[2019-11-08] MEDS: insulin Lispro (HumaLOG) vial - multi-dose SQ SCH ×2 (10:02→14:15)
[2019-11-08] MEDS ORDERED: piperacillin/tazo 4.5gm/100ml 100 ML IV SCH (11:50)
--- NOTE | 2019-11-08 15:05 | NUR ---
Reassessment: Patient admitted with bilateral foot gangrenous wounds with exposed bone, was going to surgery for right BKA and left on 11/05 however was hypotensive and unstable for surgery per MD note, was intubated 11/06 and extubated in the afternoon. He is receiving Pramod smoothies with breakfast and dinner, consumed 50% of one last night for supper. Has a renal diet. Poor appetite, eating 25% average of meals, not enough to meet nutrition needs. Most recent CM note reports patient is insistent on going home today and needing IV infusion therapy for two weeks then return for amputation, pending further decision from patient. Met with bedside RN, reports he is eating his lunch tray but not the smoothie, currently agitated. Will attempt visit at another time. Rec: 1. continue carb controlled/renal diet, encourage PO 2. honor pt food preferences; see subjective; turkey sandwich BIDLD w/ double protein, renal fruit cup BIDLD 3. strawberry Pramod smoothie BIDBD 4. MVI for wound healing needs 5. routine bowel care 6. scaled wts Addendum: 11/08/19 at [address] Amended: Links added.
[2019-11-08] MEDS ORDERED: CLE150C PO (15:55)
--- NOTE | 2019-11-08 17:56 | NUR ---
pt. left AMA at 1735. pt. was educated by the nurse, charge nurse, software asset manager and the MD on why it was not advisable. antibiotics were still provided for the pt. via [facility] and PO antibiotic was called into [facility] on [address]. pt. was educated on wound care, taking his antibiotics and PICC line care. IJ was d/c intact.
== END 2019-11-08 17:42 | disposition left against medical advice (07) | DRG 299 ==
LOC: WOUND CARE 09:30 → ORTHO 4S 10:14 → CICU 2S 11-06 05:15
PROVIDERS: ADMIT Internal Medicine; ATTEND Internal Medicine
PROC: 02HV33Z Insertion of Infusion Device into Superior Vena Cava, Percutaneous Approach (ICD-10-PCS; 2019-11-05)
PROC: B548ZZA Ultrasonography of Superior Vena Cava, Guidance (ICD-10-PCS; 2019-11-05)
PROC: 30233N1 Transfusion of Nonautologous Red Blood Cells into Peripheral Vein, Percutaneous Approach (ICD-10-PCS; 2019-11-06)
PROC: 5A09357 Assistance with Respiratory Ventilation, Less than 24 Consecutive Hours, Continuous Positive Airway Pressure (ICD-10-PCS; principal; 2019-11-08)
DX: E11.52 Type 2 diabetes mellitus with diabetic peripheral angiopathy with gangrene (principal); A41.9 Sepsis, unspecified organism; N18.6 End stage renal disease; I12.0 Hypertensive chronic kidney disease with stage 5 chronic kidney disease or end stage renal disease; L97.516 Non-pressure chronic ulcer of other part of right foot with bone involvement without evidence of necrosis; L97.526 Non-pressure chronic ulcer of other part of left foot with bone involvement without evidence of necrosis; M86.8X7 Other osteomyelitis, ankle and foot; E11.69 Type 2 diabetes mellitus with other specified complication; E11.22 Type 2 diabetes mellitus with diabetic chronic kidney disease; G47.30 Sleep apnea, unspecified; K21.9 Gastro-esophageal reflux disease without esophagitis; D64.9 Anemia, unspecified; Z53.29 Procedure and treatment not carried out because of patient's decision for other reasons; E11.621 Type 2 diabetes mellitus with foot ulcer; E11.649 Type 2 diabetes mellitus with hypoglycemia without coma; E11.42 Type 2 diabetes mellitus with diabetic polyneuropathy; E78.5 Hyperlipidemia, unspecified; B95.61 Methicillin susceptible Staphylococcus aureus infection as the cause of diseases classified elsewhere; Z79.4 Long term (current) use of insulin; Z99.2 Dependence on renal dialysis; Z88.2 Allergy status to sulfonamides; Z88.1 Allergy status to other antibiotic agents; Z79.899 Other long term (current) drug therapy; Z90.49 Acquired absence of other specified parts of digestive tract
CPT/HCPCS: 36573; 93306; Z7506; 36415; 36416; 36430; 36600; 71045; 76937; 80048; 80053; 80202; 82803; 82948; 83036; 83605; 83735; 84100; 84145; 84443; 84484; 85018; 85025; 85610; 85730; 86885; 86900; 86901; 86920; 87040; 87070; 87081; 93005; 94002; 94003; 94760; A4618; A7000; E1594; G0378; G0463; J0171; J0696; J1170; J1265; J1610; J1720; J1815; J2001; J2250; J2270; J2310; J2405; J2543; J2704; J3010; J3370; J7030; J7040; J7050; J8597; P9016; P9045